=== PATIENT | male | born 1935 | race African-American/Black ===

== ENCOUNTER 2019-04-28 05:24 | Inpatient (IN) | payer OTHER ==
[2019-04-28] VITALS (33 sets, daily range): BP systolic 73–139; BP diastolic 54–105; PULSE 71–100; RESP 18–22; Ht 195.6 cm; Wt 90.0 kg
[~2019-04-28] VITALS: Ht 195.6 cm; Wt 90.0 kg
[2019-04-28] MEDS: PROPOFOL 100 ML IV STA ×2 (05:32→05:55)
[2019-04-28] MEDS ORDERED: SOD CHLORIDE 0.9% 1,000 ML IV STA (05:32)
[2019-04-28] MEDS ORDERED: SODIUM CHLORIDE 0.9% 1L BAG IV* STA (05:35)
[2019-04-28] MEDS ORDERED: CEFEPIME 2GM/50 ML (PMX) 50 ML IVPB STA (05:35)
[2019-04-28] MEDS ORDERED: VANCOMYCIN 1 GM (PMX) 250 ML IVPB ONE (06:00)
[2019-04-28] MEDS ORDERED: ETOMIDATE 20 MG INJ IV ONE (06:00)
[2019-04-28] MEDS ORDERED: ROCURONIUM 50 MG INJ IV ONE (06:00)
[2019-04-28] MEDS ORDERED: FENTAnyl (DRIP) 1000 mcg/100mL 100 ML IV ONE (06:00)
[2019-04-28] MEDS ORDERED: FENTAnyl 50 MCG/ML VIAL IV ONE (06:00)
--- NOTE | 2019-04-28 06:22 | ERD ---
ER Documentation Chief Complaint Chief Complaint sabrina ra from assisted for respiratory depression / arrest HPI This is a 83-year-old male who presents for evaluation of respiratory distress. Patient was noted to be hypoxic at his care home facility, today EMS was called in early childhood education coordinator, noted that the patient had very shallow breath sounds. On arrival the patient was being bagged, history was limited secondary to acuity of patient's condition. ROS All systems reviewed and are negative except as per history of present illness. Allergies Allergies: Coded Allergies: No Known Allergy (Unverified , 04/28/19) PMhx/Soc Hx Cardiac Disorders: Yes (HTN) Hx Psychiatric Problems: No Hx Miscellaneous Medical Probl: Yes (DEMENTIA) Hx Alcohol Use: No Hx Substance Use: No Hx Tobacco Use: No Smoking Status: Never smoker Physical Exam Vitals Vital Signs Date Temp Pulse Resp B/P (MAP) Pulse Ox O2 O2 Flow FiO2 Time Delivery Rate 04/28/19 115 18 100 30 05:39 04/28/19 98.0 114 4 113/84 100 05:25 (94) 04/28/19 99.3 125 18 113/84 100 Ambu Bag 05:24 (94) Physical Exam Const: Ill-appearing, minimally responsive, patient does have a gag reflex Head: Atraumatic Eyes: Normal Conjunctiva ENT: Normal External Ears, Nose and Mouth. Neck: Full range of motion. No meningismus. Resp: Breath sounds are coarse bilaterally Cardio: Sinus tachycardia with regular rhythm rhythm, no murmurs Abd: Soft, non tender, non distended. Normal bowel sounds Skin: No petechiae or rashes Back: No midline or flank tenderness Ext: No cyanosis, or edema Neur: Obtunded, unable to assess Psych: Unable to assess Results 24 hrs Laboratory Tests Test 04/28/19 05:30 04/28/19 05:35 04/28/19 05:38 Bedside Glucose 457 mg/dL White Blood Count Pending Red Blood Count Pending Hemoglobin Pending Hematocrit Pending Mean Corpuscular Volume Pending Mean Corpuscular Hemoglobin Pending Mean Corpuscular Hemoglobin Concent Pending Red Cell Distribution Width Pending Platelet Count Pending Mean Platelet Volume Pending POC Venous Lactate 2.6 mmol/L Current Medications Medications Dose Sig/Michelle Start Time Status Last (Trade) Ordered Route PRN Stop Time Admin Dose Reason Admin Sodium 1,000 ml @ Q1H STAT 04/28/19 Chloride 1,000 mls/hr IV 05:32 04/28/19 06:31 Etomidate 18 mg ONCE ONCE 04/28/19 (Amidate) IV 06:00 04/28/19 06:01 Rocuronium 60 mg ONCE ONCE 04/28/19 [place] IV 06:00 04/28/19 (Zemuron) 06:01 Fentanyl 25 mcg ONCE ONCE 04/28/19 (Sublimaze) IV 06:00 04/28/19 06:01 Propofol 100 ml @ ONCE STAT 04/28/19 2.7 mls/hr IV 05:32 04/30/19 05:09 Fentanyl 100 ml @ 5 CONTINUOUS 04/28/19 mls/hr DRIP ONCE 06:00 04/29/19 IV 01:59 Sodium 2,000 ml BOLUS OVER 2 04/28/19 DC Chloride HOURS STAT 05:35 04/28/19 (NS) IV* 05:37 Cefepime HCl 50 ml @ ONCE STAT 04/28/19 100 mls/hr IVPB 05:35 04/28/19 06:04 Vancomycin 250 ml @ ONCE ONCE 04/28/19 HCl 125 mls/hr IVPB 06:00 04/28/19 07:59 Procedures/MDM 83-year-old male presents for evaluation of respiratory distress. On arrival patient was obtunded, his pupils were noted to be somewhat pinpoint by me, I tried Narcan was given with no response, subsequently he was intubated without complication. My primary suspicion that the most likely aspirated, his EKG showed no evidence of acute ischemia, patient will be started on vancomycin and cefepime. EKG: Rate/Rhythm: Sinus tachycardia QRS, ST, T-waves: No changes consistent w/ acute ischemia Impression: No evidence of ischemia or arrhythmia Endotracheal Intubation by me: Pre assessment performed. Pre-oxygenation performed with 100% oxygen RSI: Performed w/o complication or hypoxic events. Medications as ordered. Blade: [Mac 4] ET Tube: 7.5 cm Depth: 23 cm at the lip Intubation confirmed by colorimetric CO2, equal breath sounds, quiet over the stomach. Chest X-ray pending Central Line Placement by me: Patient consented, sterilely draped, full prep, gown, glove, mask, time out performed. Anesthesia: 1% lidocaine locally Location: Right IJ Device: Multiple lumen Technique: Seldinger technique. Secured with suture. Results: Venous return from all ports with easy saline flush. No complications. Guide wire retrieved and disposed of. [Chest X-ray pending Critical Care Time: 35] minutes Treatments/Evaluations: Close monitoring and treatment of unstable vital signs, cardiorespiratory, and neurologic status, while maintaining tight balance of fluid, respiratory, and cardiac interventions. This time includes discussing the case with the patient and the patient's family. This time does not include all procedures stated elsewhere in this record. This time also includes reviewing old records, labs and radiological studies. This time includes examining and re-examining the patient. Additionally, this time also includes arranging care with admitting and consulting physicians. Departure Diagnosis: Primary Impression: Shortness of breath Additional Impression: Aspiration into lower respiratory tract Encounter type: initial encounter Qualified Codes: T17.800A - Unspecified foreign body in other parts of respiratory tract causing asphyxiation, ini tial encounter Condition: Stable TERA OLVERA MD Apr 28, 2019 05:56
[2019-04-28] MEDS ORDERED: NALOXONE 2 MG SYG ONE (07:00)
--- NOTE | 2019-04-28 10:10 | HP ---
Date/Time of Note Date/Time of Note DATE: 04/28/19 TIME: 10:09 Assessment/Plan VTE Prophylaxis SCD applied (from Nsg): Yes Pharmacological prophylaxis: heparin Lines/Catheters IV Catheter Type (from Nrsg): Saline Lock Central line still needed: Yes (Critical care) Urinary Cath still in place: Yes Reason Cath still needed: other (indicate) (Critical illness, fluid monitoring) Assessment/Plan Assessment/Plan 1. 83yo man admitted from [facility] for agonal breathing, decreased level of consciousness, requiring intubation and mechanical ventilation 2. EKG showed sinus tachycardia (121bpm) with left axis deviation and T-wave inversion in leads I and aVL. But he is oxygenating well with a relatively normal ABG. Possible atrial fibrillation on exam this morning 3. Diabetes, with hyperglycemia on sliding scale insulin 4. Mild thrombocytopenia, no bleeding 5. Hypernatremia, with sodium 160, presumed dehydration with tachycardia 6. Elevated lactate, possibly related to aspiration. No infiltrate on CXR, but likely dehydrated 7. CKD: [id number], with creatinine 1.81 8. Concern for possible stroke, with previous right-sided weakness and inability to walk. Not moving right-sided extremities 9. Dementia, non-verbal. * Admit to ICU * Will ask Dr. Efrain Webster to evaluate for CCM * Continue current vent settings, with AC and TV 500cc, PEEP 5 * Continue antibiotics: cefepime 2g IV q12h (renally dose-adjusted) and vancomycin per pharmacy * Hydration; monitor electrolytes today * Insulin drip, per protocol * A1c, TSH pending * NG tube to assess any upper GI bleeding, potential for initiating tube feedings * Serial troponins * Famotidine for GI protection * Heparin 5000u SQ q12h for DVT prevention * Disposition: will require skilled placement * Code status: Full-code Leanne Stone MD PhD [facility] [phone] Result Diagram: 04/28/1953404/28/19534 Results 24hrs Laboratory Tests Test 04/28/19 05:30 04/28/19 05:32 04/28/19 05:35 04/28/19 05:38 Bedside Glucose 457 *H Blood Gas Specimen Blood arterial Source Arterial Blood 04/28/2019 6:05:04 Date Drawn AM Arterial Blood pH 7.386 (Temp corrected) Arterial Blood 39.2 pCO2 (Temp correct) Arterial Blood pO2 198.3 H (Temp corrected) Arterial Blood 23.0 HCO3 Arterial Blood -1.7 Base Excess Arterial Blood 98.9 Oxygen Saturation Ashok Test ACCEPTAB Arterial Blood Gas Left Radial Puncture Site Arterial 0.3 Blood Carboxyhemog lobin Arterial Blood 0.3 Methemoglobin Blood Gas A-a O2 475.5 H Differential Oxyhemoglobin 98.3 Percent Blood Gas 37.0 Temperature Blood Gas 18.0 Respiration Rate Blood Gas Actual 18 Respiration Rate Blood Gas Modality VENT - AC FiO2 100.0 Blood Gas Tidal 500.0 Volume Blood Gas Low PEEP 5.0 Setting Blood Gas Notified Jarrett MYRICK RCP Whom Blood Gas Notified 04/28/2019 6:11:31 Time AM White Blood Count 6.6 Red Blood Count 5.52 Hemoglobin 16.2 Hematocrit 50.9 Mean Corpuscular 92.2 Volume Mean Corpuscular 29.3 Hemoglobin Mean Corpuscular 31.8 L Hemoglobin Concent Red Cell 12.0 Distribution Width Platelet Count 122 L Mean Platelet 12.1 H Volume Immature 0.200 Granulocytes % Neutrophils % Segmented 61 Neutrophils % (Manual) Band Neutrophils % 5 H (Manual) Lymphocytes % Lymphocytes % 13 L (Manual) Monocytes % Monocytes % 21 H (Manual) Eosinophils % Basophils % Nucleated Red 0.0 Blood Cells % Immature 0.010 Granulocytes # Neutrophils # Neutrophils # 4.0 (Manual) Band Neutrophils # 0.3 Lymphocytes 0.8 (Manual) Lymphocytes # Monocytes # Monocytes # 1.3 H (Manual) Eosinophils # Basophils # Nucleated Red Blood Cells # Platelet Estimate DECREASED Giant Platelets 5 H Polychromasia 2+ Anisocytosis 1+ Microcytosis 1+ Prothrombin Time 17.4 H Prothrombin Time 1.4 Ratio INR International 1.41 Normalized Ratio Activated 26.[address] Time Sodium Level 160 H Potassium Level 4.3 Chloride Level 113 H Carbon Dioxide 28 Level Anion Gap 19 H Blood Urea 91 H Nitrogen Creatinine 1.81 H Est Glomerular Filtrat Rate mL/min Glucose Level 492 *H Calcium Level 10.0 Total Bilirubin 0.5 Direct Bilirubin 0.00 Indirect Bilirubin 0.5 Aspartate Amino 24 Transf (AST/SGOT) Alanine 8 L Aminotransferase ( ALT/SGPT) Alkaline 100 Phosphatase Troponin I 0.051 Total Protein 7.7 Albumin 3.8 Globulin 3.90 H Albumin/Globulin 0.97 Ratio POC Venous Lactate 2.6 *H Test 04/28/19 07:54 04/28/19 09:32 Lactic Acid Level 2.6 *H Phosphorus Level 3.9 Magnesium Level 3.1 H Bedside Glucose 415 *H HPI/ROS Admit Date/Time Admit Date/Time Apr 28, 2019 at 05:40 Hx of Present Illness cc: altered mental status, respiratory failure HPI: Mr. Fraser is an 83-year-old patient of Dr. Beba Luciano who was found last night in his room at [facility] to be obtunded with shallow respirations. Paramedics were called, and he was transported to the [facility] ER, where he was intubated. I spoke this morning with two of his caregivers, Suze and Leland (the charge nurse). He was first admitted to [facility] ten days ago, on 04/18/19, from [facility] where he was hospitalized last month for weakness. CT brain there was negative for CVA. He has right-sided weakness and is non-ambulatory. Full-code at the facility. No next of kin listed in their records. Non-verbal, with some behavioral disturbances that responded to Seroquel and Haldol. He was unable to feed himself. Medical history: 1. Liver disease 2. CHF 3. Cancer/leukemia/lymphoma 4. dementia 5. renal disease 6. Diabetes Medications: 1. escitalopram 2. Tozar 3. Crestor 4. Metformin 5. Aspirin 81mg 6. Novolog 7. Pepcid 8. Atrovent 9. amlodipine PMH/Family/Social Past Medical History Medications Current Medications Propofol 100 ml @ 2.7 mls/hr ONCE STAT IV ; Start 04/28/19 at 05:32; Stop 04/30/19 at 05:09 Fentanyl 100 ml @ 5 mls/hr CONTINUOUS DRIP ONCE IV Last administered on 04/28/19at 06:04; Admin Dose 5 MLS/HR; Start 04/28/19 at 06:00; Stop 04/29/19 at 01:59 Coded Allergies: No Known Allergy (Unverified , 04/28/19) Social History Smoking Status: Never smoker Exam/Review of Systems Vital Signs Vitals Vital Signs Date Temp Pulse Resp B/P (MAP) Pulse Ox O2 O2 Flow FiO2 Time Delivery Rate 04/28/19 90 08:17 04/28/19 18 121/91 98 Room Air 07:54 (101) 04/28/19 98.1 07:08 04/28/19 60 06:16 Exam Exam Gen: Intubated, on fentanyl. Propofol suspended. HEENT: Symmetric very small pupils. No scleral icterus or conjunctivitis. No JVD. Head turned to right, with mild resistance to rotation. No adenopathy. CVS: Tachycardic, irregular, no murmur heard. Left foot mildly cool, but with symmetric dorsalis pedis pulses. Chest: Clear bilaterally Abd: Non-distended, soft, bowel sounds positive, no HSM palpated MSk: No edema or arthritis Neuro: No posturing, 1+ patellar symmetric DTRs, toes downgoing bilaterally. Moving left arm infrequently. No other movement. Skin: No decubiti or rash WILFREDO STONE M.D. Apr 28, 2019 10:10
[2019-04-28] MEDS ORDERED: ONDANSETRON 4 MG INJ IV PRN (11:00)
[2019-04-28] MEDS ORDERED: NACL 0.9% 3 ML SYG IV SCH (11:00)
[2019-04-28] MEDS ORDERED: DEXTROSE 50% 50 ML SYRINGE IV PRN ×4 (11:30)
[2019-04-28] MEDS ORDERED: GLUCAGON 1 MG INJ IM PRN (11:30)
[2019-04-28] MEDS ORDERED: ACCU-CHEK XX SCH (11:30)
[2019-04-28] MEDS ORDERED: GLUCOSE GEL 15 GRAM TUBE PO PRN ×2 (11:30)
[2019-04-28] MEDS ORDERED: GLUCOSE GEL 15 GRAM TUBE BUCCAL PRN (11:30)
[2019-04-28] MEDS ORDERED: VANCOMYCIN IV PER PHARMACY XX SCH (11:30)
[2019-04-28] MEDS ORDERED: INSULIN HUMAN REGULAR 100 UNIT in SOD CHLORIDE 0.9% 99 ML IV SCH (11:30)
[2019-04-28] MEDS: CEFEPIME 2GM/50 ML (PMX) 50 ML IVPB SCH (13:19)
[2019-04-28] MEDS: 1/2 NS + KCL 20 MEQ 1,000 ML IV SCH ×2 (13:21→20:51)
[2019-04-28] MEDS ORDERED: VANCOMYCIN 750 MG (PMX) 250 ML IVPB SCH (13:30)
[2019-04-28] MEDS: FAMOTIDINE 20 MG INJ IV SCH (13:45)
[2019-04-28] MEDS: HEPARIN 5,000 UNIT/1 ML VIAL SC SCH ×2 (13:56→21:04)
[2019-04-28] MEDS: ASPIRIN 81 MG TAB NGT SCH (14:03)
--- NOTE | 2019-04-28 15:17 | CONS ---
Assessment/Plan Assessment/Plan Assessment/Plan (Daily) IMP: 1. Acute Respiratory Failure--2/2 central airway obstruction due to choking on food. 2. Encephalopathy--multifactorial. Toxic-metabolic on top of baseline dementia. 3. AG Metabolic acidosis--query mild DKA +/- lactic acidosis 4. KYAW--on CKD, likely pre-renal 5. Hypernatremia 6. Dementia RECS: 1. Vent support; will adjust vent and repeat ABG 2. Limit sedative if possible 3. Obtain serum ketones and lactate 4. Fluid resuscitation with LR 5. May initiate TF and Free H20 soon; nutrition consult 6. Obtain TnI 7. Am labs/CXR/ABG 8. VTE and GI prophylaxis 9. Send UA and cultures 10. De-escalate abx HPI: Mr. Fraser is an 83-year-old patient of Dr. Beba Luciano who was found last night in his room at [facility] to be obtunded with shallow respirations. Paramedics were called, and he was transported to the [facility] ER, where he was intubated. I spoke this morning with two of his caregivers, Suze and Leland (the charge nurse). He was first admitted to [facility] ten days ago, on 04/18/19, from [facility] where he was hospitalized last month for weakness. CT brain there was negative for CVA. He has right-sided weakness and is non-ambulatory. Full-code at the facility. No next of kin listed in their records. Non-verbal, with some behavioral disturbances that responded to Seroquel and Haldol. He was unable to feed himself. Medical history: 1. Liver disease 2. CHF 3. Cancer/leukemia/lymphoma 4. dementia 5. renal disease 6. Diabetes 1. 83yo man admitted from [facility] for agonal breathing, decreased level of consciousness, requiring intubation and mechanical ventilation 2. EKG showed sinus tachycardia (121bpm) with left axis deviation and T-wave inversion in leads I and aVL. But he is oxygenating well with a relatively normal ABG. Possible atrial fibrillation on exam this morning 3. Diabetes, with hyperglycemia on sliding scale insulin 4. Mild thrombocytopenia, no bleeding 5. Hypernatremia, with sodium 160, presumed dehydration with tachycardia 6. Elevated lactate, possibly related to aspiration. No infiltrate on CXR, but likely dehydrated 7. CKD: [id number], with creatinine 1.81 8. Concern for possible stroke, with previous right-sided weakness and inability to walk. Not moving right-sided extremities 9. Dementia, non-verbal. * Admit to ICU * Will ask Dr. Efrain Diaz to evaluate for CCM * Continue current vent settings, with AC and TV 500cc, PEEP 5 * Continue antibiotics: cefepime 2g IV q12h (renally dose-adjusted) and vancomycin per pharmacy * Hydration; monitor electrolytes today * Insulin drip, per protocol * A1c, TSH pending * NG tube to assess any upper GI bleeding, potential for initiating tube feedings * Serial troponins * Famotidine for GI protection * Heparin 5000u SQ q12h for DVT prevention * Disposition: will require skilled placement * Code status: Full-code Consultation Date/Type/Reason Admit Date/Time Apr 28, 2019 at 05:40 Date of Consultation: Apr 28, 2019 Type of Consult Pulm/CCM Date/Time of Note DATE: 04/28/19 TIME: 15:04 Hx of Present Illness Briefly, this is an 83-year-old man with history of DM, dementia,? leukemia, CHF, liver disease, right-sided weakness, who was admitted to [facility] after being found in SNF in respiratory distress, requiring intubation. He is currently on mechanical ventilation and is sedated. Subjective hx not possible: pt non-verbal Past Medical History as per HPI Medications Current Medications Propofol 100 ml @ 2.7 mls/hr ONCE STAT IV ; Start 04/28/19 at 05:32; Stop 04/30/19 at 05:09 Fentanyl 100 ml @ 5 mls/hr CONTINUOUS DRIP ONCE IV Last administered on 04/28/19at 06:04; Admin Dose 5 MLS/HR; Start 04/28/19 at 06:00; Stop 04/29/19 at 01:59 Potassium Chloride/Sodium Chloride 1,000 ml @ 100 mls/hr Q10H IV Last administered on 04/28/19at 13:21; Admin Dose 100 MLS/HR; Start 04/28/19 at 10:51 IV Flush (NS 3 ml) 3 ml PER PROTOCOL IV ; Start 04/28/19 at 11:00 Ondansetron HCl (Zofran Inj) 4 mg Q6H PRN IV NAUSEA/VOMITING; Start 04/28/19 at 11:00 Aspirin (Aspirin) 81 mg DAILY NGT Last administered on 04/28/19at 14:03; Admin Dose 81 MG; Start 04/28/19 at 11:00 Famotidine (Pepcid Iv) 20 mg Q24H IV Last administered on 04/28/19at 13:45; Admin Dose 20 MG; Start 04/28/19 at 11:40 Heparin Sodium (Porcine) (Heparin (5000 Units/1ml)) 5,000 unit Q12 SC Last administered on 04/28/19at 13:56; Admin Dose 5,000 UNIT; Start 04/28/19 at 11:00 Insulin Human Regular 100 unit/ Sodium Chloride 100 ml @ 9 mls/hr PER PROTOCOL IV Last administered on 04/28/19at 13:29; Admin Dose 6 MLS/HR; Start 04/28/19 at 11:30 Miscellaneous Information (* Miscellaneous Pharmacy Order) Treatment of Hypoglycemia: 1.BG 51... Per protocol XX ; Start 04/28/19 at 11:30 Dextrose (D50w Syringe) 25 ml Q15M PRN IV .DECREASED GLUCOSE; Start 04/28/19 at 11:30 Dextrose (D50w Syringe) 50 ml Q15M PRN IV .DECREASED GLUCOSE; Start 04/28/19 at 11:30 Cefepime HCl 50 ml @ 100 mls/hr Q24H IVPB Last administered on 04/28/19at 13:19; Admin Dose 100 MLS/HR; Start 04/29/19 at 06:00 Vancomycin HCl (Vanco Iv Per Pharmacy) VANCOMYCIN PER PHARMACY PER PROTOCOL XX ; Start 04/28/19 at 11:30 Vancomycin/Sodium Chloride 250 ml @ 125 mls/hr Q24H IVPB Last administered on 04/28/19at 13:45; Admin Dose 125 MLS/HR; Start 04/28/19 at 13:30 Allergies: Coded Allergies: No Known Allergy (Unverified , 04/28/19) Past Surgical History unknown Family History Significant Family History: no pertinent family hx Social History Alcohol Use: none Smoking Status: Never smoker Drug Use: none Exam/Review of Systems Exam Vitals Vital Signs Date Temp Pulse Resp B/P (MAP) Pulse Ox O2 O2 Flow FiO2 Time Delivery Rate 04/28/19 94 12:00 04/28/19 18 99 50 11:20 04/28/19 121/91 Room Air 07:54 (101) 04/28/19 98.1 07:08 Constitutional: non-verbal Head: normocephalic, atraumatic Eyes: nl conjunctiva, EOMI ENMT: intubated Neck: supple, non-tender, jvd Respiratory: clear to auscultation Cardiovascular: regular rate and rhythm, systolic murmur Gastrointestinal: soft, nl liver, spleen Musculoskeletal: nl extremities to inspection Extremities: normal pulses Neurological: [employer]NAL [employer]ION ENG[employer]ER II-XII intact, focal weakness Results Result Diagram: 04/28/19 0535 04/28/19 0535 Results 24hrs Laboratory Tests Test 04/28/19 05:30 04/28/19 05:32 04/28/19 05:35 04/28/19 05:38 Bedside Glucose 457 *H Blood Gas Specimen Blood arterial Source Arterial Blood 04/28/2019 6:05:04 Date Drawn AM Arterial Blood pH 7.386 (Temp corrected) Arterial Blood 39.2 pCO2 (Temp correct) Arterial Blood pO2 198.3 H (Temp corrected) Arterial Blood 23.0 HCO3 Arterial Blood -1.7 Base Excess Arterial Blood 98.9 Oxygen Saturation Ashok Test ACCEPTAB Arterial Blood Gas Left Radial Puncture Site Arterial 0.3 Blood Carboxyhemog lobin Arterial Blood 0.3 Methemoglobin Blood Gas A-a O2 475.5 H Differential Oxyhemoglobin 98.3 Percent Blood Gas 37.0 Temperature Blood Gas 18.0 Respiration Rate Blood Gas Actual 18 Respiration Rate Blood Gas Modality VENT - AC FiO2 100.0 Blood Gas Tidal 500.0 Volume Blood Gas Low PEEP 5.0 Setting Blood Gas Notified Jarrett MYRICK RCP Whom Blood Gas Notified 04/28/2019 6:11:31 Time AM White Blood Count 6.6 Red Blood Count 5.52 Hemoglobin 16.2 Hematocrit 50.9 Mean Corpuscular 92.2 Volume Mean Corpuscular 29.3 Hemoglobin Mean Corpuscular 31.8 L Hemoglobin Concent Red Cell 12.0 Distribution Width Platelet Count 122 L Mean Platelet 12.1 H Volume Immature 0.200 Granulocytes % Neutrophils % Segmented 61 Neutrophils % (Manual) Band Neutrophils % 5 H (Manual) Lymphocytes % Lymphocytes % 13 L (Manual) Monocytes % Monocytes % 21 H (Manual) Eosinophils % Basophils % Nucleated Red 0.0 Blood Cells % Immature 0.010 Granulocytes # Neutrophils # Neutrophils # 4.0 (Manual) Band Neutrophils # 0.3 Lymphocytes 0.8 (Manual) Lymphocytes # Monocytes # Monocytes # 1.3 H (Manual) Eosinophils # Basophils # Nucleated Red Blood Cells # Platelet Estimate DECREASED Giant Platelets 5 H Polychromasia 2+ Anisocytosis 1+ Microcytosis 1+ Prothrombin Time 17.4 H Prothrombin Time 1.4 Ratio INR International 1.41 Normalized Ratio Activated 26.[address] Time Sodium Level 160 H Potassium Level 4.3 Chloride Level 113 H Carbon Dioxide 28 Level Anion Gap 19 H Blood Urea 91 H Nitrogen Creatinine 1.81 H Est Glomerular Filtrat Rate mL/min Glucose Level 492 *H Calcium Level 10.0 Total Bilirubin 0.5 Direct Bilirubin 0.00 Indirect Bilirubin 0.5 Aspartate Amino 24 Transf (AST/SGOT) Alanine 8 L Aminotransferase ( ALT/SGPT) Alkaline 100 Phosphatase Troponin I 0.051 Total Protein 7.7 Albumin 3.8 Globulin 3.90 H Albumin/Globulin 0.97 Ratio POC Venous Lactate 2.6 *H Test 04/28/19 07:54 04/28/19 09:32 04/28/19 10:30 04/28/19 13:24 Lactic Acid Level 2.6 *H 2.6 *H Phosphorus Level 3.9 Magnesium Level 3.1 H Bedside Glucose 415 *H 407 *H Test 04/28/19 14:32 Bedside Glucose 377 H Medications Medication Current Medications Propofol 100 ml @ 2.7 mls/hr ONCE STAT IV ; Start 04/28/19 at 05:32; Stop 04/30/19 at 05:09 Fentanyl 100 ml @ 5 mls/hr CONTINUOUS DRIP ONCE IV Last administered on 04/28/19at 06:04; Admin Dose 5 MLS/HR; Start 04/28/19 at 06:00; Stop 04/29/19 at 01:59 Potassium Chloride/Sodium Chloride 1,000 ml @ 100 mls/hr Q10H IV Last administered on 04/28/19at 13:21; Admin Dose 100 MLS/HR; Start 04/28/19 at 10:51 IV Flush (NS 3 ml) 3 ml PER PROTOCOL IV ; Start 04/28/19 at 11:00 Ondansetron HCl (Zofran Inj) 4 mg Q6H PRN IV NAUSEA/VOMITING; Start 04/28/19 at 11:00 Aspirin (Aspirin) 81 mg DAILY NGT Last administered on 04/28/19 14:03; Admin Dose 81 MG; Start 04/28/19 at 11:00 Famotidine (Pepcid Iv) 20 mg Q24H IV Last administered on 04/28/19 13:45; Admin Dose 20 MG; Start 04/28/19 at 11:40 Heparin Sodium (Porcine) (Heparin (5000 Units/1ml)) 5,000 unit Q12 SC Last administered on 04/28/19 13:56; Admin Dose 5,000 UNIT; Start 04/28/19 at 11:00 Insulin Human Regular 100 unit/ Sodium Chloride 100 ml @ 9 mls/hr PER PROTOCOL IV Last administered on 04/28/19 13:29; Admin Dose 6 MLS/HR; Start 04/28/19 at 11:30 Miscellaneous Information (* Miscellaneous Pharmacy Order) Treatment of Hypoglycemia: 1.BG 51... Per protocol XX ; Start 04/28/19 at 11:30 Dextrose (D50w Syringe) 25 ml Q15M PRN IV .DECREASED GLUCOSE; Start 04/28/19 at 11:30 Dextrose (D50w Syringe) 50 ml Q15M PRN IV .DECREASED GLUCOSE; Start 04/28/19 at 11:30 Cefepime HCl 50 ml @ 100 mls/hr Q24H IVPB Last administered on 04/28/19 13:19; Admin Dose 100 MLS/HR; Start 04/29/19 at 06:00 Vancomycin HCl (Vanco Iv Per Pharmacy) VANCOMYCIN PER PHARMACY PER PROTOCOL XX ; Start 04/28/19 at 11:30 Vancomycin/Sodium Chloride 250 ml @ 125 mls/hr Q24H IVPB Last administered on 04/28/19 13:45; Admin Dose 125 MLS/HR; Start 04/28/19 at 13:30 EFRAIN DIAZ MD Apr 28, 2019 15:17
[2019-04-28] MEDS ORDERED: LACTATED RINGER'S 1,000 ML IV ONE (15:30)
[2019-04-28] MEDS: FENTAnyl (DRIP) 1000 mcg/100mL 100 ML IV SCH (18:00)
[2019-04-29] VITALS (44 sets, daily range): BP systolic 96–140; BP diastolic 63–99; PULSE 78–101; RESP 16–20
[2019-04-29] MEDS: 1/2 NS + KCL 20 MEQ 1,000 ML IV SCH ×3 (00:14→19:59)
[2019-04-29] MEDS: FENTAnyl (DRIP) 1000 mcg/100mL 100 ML IV SCH (06:06)
[2019-04-29] MEDS ORDERED: GLUCOSE GEL 15 GRAM TUBE BUCCAL PRN (08:30)
[2019-04-29] MEDS ORDERED: DEXTROSE 50% 50 ML SYRINGE IV PRN ×2 (08:30)
[2019-04-29] MEDS ORDERED: GLUCOSE GEL 15 GRAM TUBE PO PRN ×2 (08:30)
[2019-04-29] MEDS ORDERED: GLUCAGON 1 MG INJ IM PRN (08:30)
[2019-04-29] MEDS: INSULIN ASPART [NOVOLOG] 3 ML PEN SC SCH ×4 (09:00→22:00)
[2019-04-29] MEDS: ASPIRIN 81 MG TAB NGT SCH (09:00)
--- NOTE | 2019-04-29 09:40 | CONS ---
Consult Date/Type/Reason Admit Date/Time Apr 28, 2019 at 05:40 Initial Consult Date 04/28/19 Type of Consult Pulmonary Date/Time of Note DATE: 04/29/19 TIME: 09:38 Subjective Patient appears comfortable no respiratory distress orally intubated currently on insulin and fentanyl FiO2 40%. Objective Vital Signs Date Temp Pulse Resp B/P (MAP) Pulse Ox O2 O2 Flow FiO2 Time Delivery Rate 04/29/19 87 18 102/75 99 Mechanical 08:30 (84) Ventilator 04/29/19 50 08:00 04/29/19 98.0 08:00 Intake and Output 04/28/19 04/28/19 04/29/19 1515:00 23:00 07:00 IntakeIntake Total 1423 ml 2188 ml 850.0 ml OutputOutput Total 30 ml 250 ml BalanceBalance 1423 ml 2158 ml 600.0 ml Exam GENERAL: VITAL SIGNS: per chart NECK: Supple. No JVD or lymphadenopathy. CARDIAC EXAM: S1, S2. No added sounds or murmurs. CHEST: clear bilaterally, No added sounds, rales or wheezes ABDOMEN: Soft, nontender. No guarding or rebound. EXTREMITIES: No cyanosis, clubbing or edema. NEUROLOGIC: Generalized weakness. Elderly appearing gentleman orally intubated on mechanical ventilation Vent Setting Ventilator Support Mode: AC Fraction of Inspired Oxygen pe: 50 Positive End Expiratory Pressu: 5.0 Results/Medications Result Diagram: 04/29/19 0500 04/29/19 0500 Results 24 hrs Laboratory Tests Test 04/28/19 10:30 04/28/19 13:24 04/28/19 14:32 04/28/19 15:36 Lactic Acid Level 2.6 *H Bedside Glucose 407 *H 377 H 325 H Test 04/28/19 15:46 04/28/19 16:39 04/28/19 17:44 04/28/19 18:48 Lactic Acid Level 3.9 *H Bedside Glucose 278 H 253 H 231 H Test 04/28/19 19:56 04/28/19 21:06 04/28/19 22:05 04/28/19 23:19 Bedside Glucose 189 167 136 131 Test 04/29/19 00:02 04/29/19 00:53 04/29/19 01:56 04/29/19 02:56 Bedside Glucose 113 111 109 107 Test 04/29/19 04:01 04/29/19 04:57 04/29/19 05:00 04/29/19 05:59 Bedside Glucose 116 127 125 White Blood Count 8.6 # Red Blood Count 4.84 Hemoglobin 14.2 Hematocrit 44.9 Mean Corpuscular 92.8 Volume Mean Corpuscular 29.3 Hemoglobin Mean Corpuscular 31.6 L Hemoglobin Concent Red Cell 12.4 Distribution Width Platelet Count 96 #L Mean Platelet 12.4 H Volume Immature 0.300 Granulocytes % Neutrophils % Segmented 58 Neutrophils % (Manual) Band Neutrophils % 22 H (Manual) Lymphocytes % Lymphocytes % 6 L (Manual) Monocytes % Monocytes % 8 (Manual) Eosinophils % Basophils % Basophils % 1 (Manual) Metamyelocytes % 3 H (manual) Myelocytes % 1 H (Manual) Promyelocytes % 1 H (Manual) Nucleated Red 0.0 Blood Cells % Immature 0.030 Granulocytes # Neutrophils # Neutrophils # 5.1 (Manual) Band Neutrophils # 1.8 H Lymphocytes 0.5 L (Manual) Lymphocytes # Monocytes # Monocytes # 0.6 (Manual) Eosinophils # Basophils # Basophils # 0.0 (Manual) Metamyelocytes # 0.2 H Myelocytes # 0.0 Promyelocytes # 0.0 Nucleated Red Blood Cells # Platelet Estimate DECREASED Giant Platelets 4 H Poikilocytosis 1+ Blood Gas Specimen Blood arterial Source Arterial Blood 04/29/2019 4:20:58 Date Drawn AM Arterial Blood pH 7.375 (Temp corrected) Arterial Blood 39.6 pCO2 (Temp correct) Arterial Blood pO2 87.3 (Temp corrected) Arterial Blood 22.6 HCO3 Arterial Blood -2.3 Base Excess Arterial Blood 96.5 Oxygen Saturation Ashok Test ACCEPTAB Arterial Blood Gas Left Radial Puncture Site Arterial 0.3 Blood Carboxyhemog lobin Arterial Blood 0.4 Methemoglobin Blood Gas A-a O2 152.4 H Differential Oxyhemoglobin 95.8 Percent Blood Gas 37.0 Temperature Blood Gas 18.0 Respiration Rate Blood Gas Actual 18 Respiration Rate Blood Gas Modality VENT - AC FiO2 40.0 Blood Gas Tidal 500.0 Volume Blood Gas Low PEEP 5.0 Setting Blood Gas Notified MA Whom Blood Gas Notified 04/29/2019 4:41:36 Time AM Sodium Level 154 H Potassium Level 4.3 Chloride Level 121 H Carbon Dioxide 25 Level Anion Gap 8 # Blood Urea 84 H Nitrogen Creatinine 1.59 H Est Glomerular Filtrat Rate mL/min Glucose Level 138 # Hemoglobin A1c 12.9 H Lactic Acid Level 2.1 *H Calcium Level 9.1 Test 04/29/19 06:56 Bedside Glucose 130 Medications Current Medications Propofol 100 ml @ 2.7 mls/hr ONCE STAT IV ; Start 04/28/19 at 05:32; Stop 04/30/19 at 05:09 Potassium Chloride/Sodium Chloride 1,000 ml @ 100 mls/hr Q10H IV Last ad ministered on 04/29/19at 00:14; Admin Dose 100 MLS/HR; Start 04/28/19 at 10:51 IV Flush (NS 3 ml) 3 ml PER PROTOCOL IV ; Start 04/28/19 at 11:00 Ondansetron HCl (Zofran Inj) 4 mg Q6H PRN IV NAUSEA/VOMITING; Start 04/28/19 at 11:00 Aspirin (Aspirin) 81 mg DAILY NGT Last administered on 04/28/19at 14:03; Admin Dose 81 MG; Start 04/28/19 at 11:00 Famotidine (Pepcid Iv) 20 mg Q24H IV Last administered on 04/28/19at 13:45; Admin Dose 20 MG; Start 04/28/19 at 11:40 Heparin Sodium (Porcine) (Heparin (5000 Units/1ml)) 5,000 unit Q12 SC Last administered on 04/28/19at 21:04; Admin Dose 5,000 UNIT; Start 04/28/19 at 11:00 Cefepime HCl 50 ml @ 100 mls/hr Q24H IVPB Last administered on 04/28/19at 13:19; Admin Dose 100 MLS/HR; Start 04/29/19 at 06:00 Fentanyl 100 ml @ 2.5 mls/hr TITRATE IV Last administered on 04/29/19at 06:06; Admin Dose 5 MLS/HR; Start 04/28/19 at 18:00 Insulin Aspart (Novolog Insulin Pen) NOVOLOG *MODERATE* ALGORI... Q4 SC ; Start 04/29/19 at 09:00 Insulin Glargine (Lantus) 12 units DAILY@0800 SC ; Start 04/29/19 at 09:00 Miscellaneous Information 1 ea NOTE XX ; Start 04/29/19 at 08:30 Glucose (Glutose) 15 gm Q15M PRN PO DECREASED GLUCOSE; Start 04/29/19 at 08:30 Glucose (Glutose) 22.5 gm Q15M PRN PO DECREASED GLUCOSE; Start 04/29/19 at 08:30 Dextrose (D50w Syringe) 25 ml Q15M PRN IV DECREASED GLUCOSE; Start 04/29/19 at 08:30 Dextrose (D50w Syringe) 50 ml Q15M PRN IV DECREASED GLUCOSE; Start 04/29/19 at 08:30 Glucagon (Glucagen) 1 mg Q15M PRN IM DECREASED GLUCOSE; Start 04/29/19 at 08:30 Glucose (Glutose) 15 gm Q15M PRN BUCCAL DECREASED GLUCOSE; Start 04/29/19 at 08:30 Assessment/Plan Hospital Course (Demo Recall) IMP: 1. Acute Respiratory Failure--2/2 central airway obstruction due to choking on food. 2. Encephalopathy--multifactorial. Toxic-metabolic on top of baseline dementia. 3. AG Metabolic acidosis--query mild DKA +/- lactic acidosis 4. KYAW--on CKD, likely pre-renal 5. Hypernatremia 6. Dementia RECS: 1. Vent support; Anticipate weaning trial tomorrow 2. Limit sedative if possible 3. Obtain serum ketones and lactate 4. Fluid resuscitation with LR 5. May initiate TF and Free H20 soon; nutrition consult Critical care time 40 minutes Discussed goals of care with family and CODE STATUS. SHIRA SUE MD, [facility] Apr 29, 2019 09:40
[2019-04-29] MEDS: INSULIN GLARGINE [LANTus] (100 UNITS/ML) SYG SC SCH (09:53)
[2019-04-29] MEDS: HEPARIN 5,000 UNIT/1 ML VIAL SC SCH ×2 (09:54→21:58)
[2019-04-29] MEDS: FAMOTIDINE 20 MG INJ IV SCH (12:03)
--- NOTE | 2019-04-29 15:16 | PN ---
Date/Time of Note Date/Time of Note DATE: 04/29/19 TIME: 15:14 Subjective Remains sedated and intubated Objective Vitals Vital Signs Date Temp Pulse Resp B/P (MAP) Pulse Ox O2 O2 Flow FiO2 Time Delivery Rate 04/29/19 84 19 117/87 98 Mechanical 14:30 (97) Ventilator 04/29/19 97.7 12:00 04/29/19 40 11:40 Intake and Output 04/28/19 04/28/19 04/29/19 1515:00 23:00 07:00 IntakeIntake Total 1423 ml 2188 ml 850.0 ml OutputOutput Total 30 ml 280 ml BalanceBalance 1423 ml 2158 ml 570.0 ml Clear to auscultation bilaterally Rapid rate no murmurs or gallops Soft normoactive bowel sounds No edema Results Result Diagram: 04/29/19 0500 04/29/19 0500 Medications Medications Current Medications Propofol 100 ml @ 2.7 mls/hr ONCE STAT IV ; Start 04/28/19 at 05:32; Stop 04/30/19 at 05:09 Potassium Chloride/Sodium Chloride 1,000 ml @ 100 mls/hr Q10H IV Last administered on 04/29/19at 09:51; Admin Dose 100 MLS/HR; Start 04/28/19 at 10:51 IV Flush (NS 3 ml) 3 ml PER PROTOCOL IV ; Start 04/28/19 at 11:00 Ondansetron HCl (Zofran Inj) 4 mg Q6H PRN IV NAUSEA/VOMITING; Start 04/28/19 at 11:00 Aspirin (Aspirin) 81 mg DAILY NGT Last administered on 04/29/19at 09:00; Admin Dose 81 MG; Start 04/28/19 at 11:00 Famotidine (Pepcid Iv) 20 mg Q24H IV Last administered on 04/29/19at 12:03; Admin Dose 20 MG; Start 04/28/19 at 11:40 Heparin Sodium (Porcine) (Heparin (5000 Units/1ml)) 5,000 unit Q12 SC Last administered on 04/29/19at 09:54; Admin Dose 5,000 UNIT; Start 04/28/19 at 11:00 Cefepime HCl 50 ml @ 100 mls/hr Q24H IVPB Last administered on 04/28/19at 13:19; Admin Dose 100 MLS/HR; Start 04/29/19 at 06:00 Fentanyl 100 ml @ 2.5 mls/hr TITRATE IV Last administered on 04/29/19at 06:06; Admin Dose 5 MLS/HR; Start 04/28/19 at 18:00 Insulin Aspart (Novolog Insulin Pen) NOVOLOG *MODERATE* ALGORI... Q4 SC Last administered on 04/29/19at 13:47; Admin Dose 2 UNIT; Start 04/29/19 at 09:00 Insulin Glargine (Lantus) 12 units DAILY@0800 SC Last administered on 04/29/19at 09:53; Admin Dose 12 UNITS; Start 04/29/19 at 09:00 Miscellaneous Information 1 ea NOTE XX ; Start 04/29/19 at 08:30 Glucose (Glutose) 15 gm Q15M PRN PO DECREASED GLUCOSE; Start 04/29/19 at 08:30 Glucose (Glutose) 22.5 gm Q15M PRN PO DECREASED GLUCOSE; Start 04/29/19 at 08:30 Dextrose (D50w Syringe) 25 ml Q15M PRN IV DECREASED GLUCOSE; Start 04/29/19 at 08:30 Dextrose (D50w Syringe) 50 ml Q15M PRN IV DECREASED GLUCOSE; Start 04/29/19 at 08:30 Glucagon (Glucagen) 1 mg Q15M PRN IM DECREASED GLUCOSE; Start 04/29/19 at 08:30 Glucose (Glutose) 15 gm Q15M PRN BUCCAL DECREASED GLUCOSE; Start 04/29/19 at 08:30 VTE Prophylaxis Risk score (from Nsg)>0 risk: 11 SCD applied (from Nsg): Yes Lines/Catheters IV Catheter Type: Saline Lock Cooper in Place: Yes Cont'd cooper catheter reason: other (indicate) (ICU status) Assessment/Plan Assessment/Plan 83-year-old male with acute respiratory failure due to choking on food, status post intubation Recent CVA with left hemiparesis Alzheimer's dementia Acute kidney injury Dehydration Continue current therapy Wean off the ventilator Palliative care consultation Patient has no family members ALEXANDRIA WAGNER MD Apr 29, 2019 15:16
[2019-04-30] VITALS (36 sets, daily range): BP systolic 101–149; BP diastolic 68–90; PULSE 68–82; RESP 12–22
[2019-04-30] MEDS: INSULIN ASPART [NOVOLOG] 3 ML PEN SC SCH ×6 (01:18→21:01)
[2019-04-30] MEDS: FENTAnyl (DRIP) 1000 mcg/100mL 100 ML IV SCH (02:13)
[2019-04-30] MEDS: CEFEPIME 2GM/50 ML (PMX) 50 ML IVPB SCH (05:05)
[2019-04-30] MEDS: 1/2 NS + KCL 20 MEQ 1,000 ML IV SCH (05:18)
--- NOTE | 2019-04-30 08:06 | CONS ---
Assessment/Plan Assessment/Plan Assessment/Plan (Daily) Elderly 83-year-old gentleman with multiple medical problems Domingo failure on ventilator Questionable new CVA with left hemiparesis Dementia unknown severity Dehydration This patient is actively undergoing a trial of CPAP hopefully he can be extubated and verbalize transferred back to shelter facility. Code cannot be addressed at this time as there is no want to speak to unless we call a bioethics meeting which I think they will not address since patient is improving. Will follow closely. Consultation Date/Type/Reason Admit Date/Time Apr 28, 2019 at 05:40 Date/Time of Note DATE: 04/30/19 TIME: 08:02 Hx of Present Illness Chart reviewed patient examined spoke with intensive care unit nurse. Patient i s a 83-year-old gentleman who has multiple medical problems but essentially was transferred to [facility] after he apparently choked at an outside facility required intubation in the emergency room was admitted May 28, 2019. Initial thought was that patient had right-sided weakness CT of the brain was unremarkable for acute CVA. According to information that we have received patient was functional at an outside facility patient is a full code there are no family members on record patient is nonverbal once again intubated at this time where we have an incomplete database patient as far as patient's baseline cognitive mental abilities. Other comorbid medical problems include history of diabetes, fluid and electrolyte abnormalities, dementia uncharacterized, and of unknown severity, liver disease unknown etiology, congestive heart failure, malignancy unknown site unknown treatment, renal disease. Again patient is non- historian intubated full code no family members. As far as I know at this time patient is not conserved. At this time patient's fentanyl is being decreased and he will undergo a trial of CPAP today. Patient is intubated cannot obtain a review of systems. Past Medical History Medical History: cancer, congestive heart failure, renal disease Medications Current Medications Potassium Chloride/Sodium Chloride 1,000 ml @ 100 mls/hr Q10H IV Last administered on 04/30/19at 05:18; Admin Dose 100 MLS/HR; Start 04/28/19 at 10:51 IV Flush (NS 3 ml) 3 ml PER PROTOCOL IV ; Start 04/28/19 at 11:00 Ondansetron HCl (Zofran Inj) 4 mg Q6H PRN IV NAUSEA/VOMITING; Start 04/28/19 at 11:00 Aspirin (Aspirin) 81 mg DAILY NGT Last administered on 04/29/19at 09:00; Admin Dose 81 MG; Start 04/28/19 at 11:00 Famotidine (Pepcid Iv) 20 mg Q24H IV Last administered on 04/29/19at 12:03; Admin Dose 20 MG; Start 04/28/19 at 11:40 Heparin Sodium (Porcine) (Heparin (5000 Units/1ml)) 5,000 unit Q12 SC Last administered on 04/29/19at 21:58; Admin Dose 5,000 UNIT; Start 04/28/19 at 11:00 Cefepime HCl 50 ml @ 100 mls/hr Q24H IVPB Last administered on 04/30/19at 05:05; Admin Dose 100 MLS/HR; Start 04/29/19 at 06:00 Fentanyl 100 ml @ 2.5 mls/hr TITRATE IV Last administered on 04/30/19at 02:13; Admin Dose 5 MLS/HR; Start 04/28/19 at 18:00 Insulin Aspart (Novolog Insulin Pen) NOVOLOG *MODERATE* ALGORI... Q4 SC Last administered on 04/30/19at 05:02; Admin Dose 4 UNIT; Start 04/29/19 at 09:00 Insulin Glargine (Lantus) 12 units DAILY@0800 SC Last administered on 04/29/19at 09:53; Admin Dose 12 UNITS; Start 04/29/19 at 09:00 Miscellaneous Information 1 ea NOTE XX ; Start 04/29/19 at 08:30 Glucose (Glutose) 15 gm Q15M PRN PO DECREASED GLUCOSE; Start 04/29/19 at 08:30 Glucose (Glutose) 22.5 gm Q15M PRN PO DECREASED GLUCOSE; Start 04/29/19 at 08:30 Dextrose (D50w Syringe) 25 ml Q15M PRN IV DECREASED GLUCOSE; Start 04/29/19 at 08:30 Dextrose (D50w Syringe) 50 ml Q15M PRN IV DECREASED GLUCOSE; Start 04/29/19 at 08:30 Glucagon (Glucagen) 1 mg Q15M PRN IM DECREASED GLUCOSE; Start 04/29/19 at 08:30 Glucose (Glutose) 15 gm Q15M PRN BUCCAL DECREASED GLUCOSE; Start 04/29/19 at 08:30 Allergies: Coded Allergies: No Known Allergy (Unverified , 04/28/19) Past Surgical History Past Surgical Hx: other (Unknown) Family History Significant Family History: other (Unknown) Social History Alcohol Use: none Smoking Status: Never smoker Drug Use: none, other (Unknown) Exam/Review of Systems Exam Vitals Vital Signs Date Temp Pulse Resp B/P (MAP) Pulse Ox O2 O2 Flow FiO2 Time Delivery Rate 04/30/19 70 18 99 40 06:04 04/30/19 109/69 Mechanical 06:00 (82) Ventilator 04/30/19 98.7 04:00 Intake and Output 04/29/19 04/29/19 04/30/19 1515:00 23:00 07:00 IntakeIntake Total 744.5 ml 990 ml 990 ml OutputOutput Total 240 ml 340 ml 400 ml BalanceBalance 504.5 ml 650 ml 590 ml Constitutional: other (Intubated noncommunicative sedated) Eyes: nl conjunctiva, EOMI, nl lids, nl sclera, PERRL Respiratory: clear to auscultation, normal air movement Cardiovascular: regular rate and rhythm, nl pulses; No bruits, No diastolic murmur, No edema, No gallop, No irregular rhythm, No jugular venous distention (JVD), No murmurs/extra sounds, No rub, No systolic murmur, No S3, No S4, No other Gastrointestinal: No soft, No nl liver, spleen, No non-tender, No ascites, No bowel sounds, No distended, No firm, No hepatomegaly, No mass, No rebound or guarding, No splenomegaly, No surgical scars, No tender, No other Neurological: other (Does respond to tactile stimulation when sedation is decreased nonpurposeful movements cannot participate in cranial examination) Results Result Diagram: 04/29/19 0500 04/29/19 0500 Results 24hrs Laboratory Tests Test 04/29/19 09:20 04/29/19 10:24 04/29/19 11:38 04/29/19 13:43 Bedside Glucose 109 122 127 151 Test 04/29/19 16:47 04/29/19 21:55 04/30/19 01:13 04/30/19 04:56 Bedside Glucose 216 199 198 203 Medications Medication Current Medications Potassium Chloride/Sodium Chloride 1,000 ml @ 100 mls/hr Q10H IV Last administered on 04/30/19at 05:18; Admin Dose 100 MLS/HR; Start 04/28/19 at 10:51 IV Flush (NS 3 ml) 3 ml PER PROTOCOL IV ; Start 04/28/19 at 11:00 Ondansetron HCl (Zofran Inj) 4 mg Q6H PRN IV NAUSEA/VOMITING; Start 04/28/19 at 11:00 Aspirin (Aspirin) 81 mg DAILY NGT Last administered on 04/29/19at 09:00; Admin Dose 81 MG; Start 04/28/19 at 11:00 Famotidine (Pepcid Iv) 20 mg Q24H IV Last administered on 04/29/19at 12:03; Admin Dose 20 MG; Start 04/28/19 at 11:40 Heparin Sodium (Porcine) (Heparin (5000 Units/1ml)) 5,000 unit Q12 SC Last administered on 04/29/19at 21:58; Admin Dose 5,000 UNIT; Start 04/28/19 at 11:00 Cefepime HCl 50 ml @ 100 mls/hr Q24H IVPB Last administered on 04/30/19at 05:05; Admin Dose 100 MLS/HR; Start 04/29/19 at 06:00 Fentanyl 100 ml @ 2.5 mls/hr TITRATE IV Last administered on 04/30/19at 02:13; Admin Dose 5 MLS/HR; Start 04/28/19 at 18:00 Insulin Aspart (Novolog Insulin Pen) NOVOLOG *MODERATE* ALGORI... Q4 SC Last administered on 04/30/19at 05:02; Admin Dose 4 UNIT; Start 04/29/19 at 09:00 Insulin Glargine (Lantus) 12 units DAILY@0800 SC Last administered on 04/29/19at 09:53; Admin Dose 12 UNITS; Start 04/29/19 at 09:00 Miscellaneous Information 1 ea NOTE XX ; Start 04/29/19 at 08:30 Glucose (Glutose) 15 gm Q15M PRN PO DECREASED GLUCOSE; Start 04/29/19 at 08:30 Glucose (Glutose) 22.5 gm Q15M PRN PO DECREASED GLUCOSE; Start 04/29/19 at 08:30 Dextrose (D50w Syringe) 25 ml Q15M PRN IV DECREASED GLUCOSE; Start 04/29/19 at 08:30 Dextrose (D50w Syringe) 50 ml Q15M PRN IV DECREASED GLUCOSE; Start 04/29/19 at 08:30 Glucagon (Glucagen) 1 mg Q15M PRN IM DECREASED GLUCOSE; Start 04/29/19 at 08:30 Glucose (Glutose) 15 gm Q15M PRN BUCCAL DECREASED GLUCOSE; Start 04/29/19 at 08:30 CONOR MANUEL Apr 30, 2019 08:06
[2019-04-30] MEDS: INSULIN GLARGINE [LANTus] (100 UNITS/ML) SYG SC SCH (09:16)
[2019-04-30] MEDS: HEPARIN 5,000 UNIT/1 ML VIAL SC SCH ×2 (09:17→21:03)
[2019-04-30] MEDS: ASPIRIN 81 MG TAB NGT SCH (09:26)
--- NOTE | 2019-04-30 09:31 | PN ---
Date/Time of Note Date/Time of Note DATE: 04/30/19 TIME: 09:25 Subjective Patient remains intubated and sedated Objective Vitals Vital Signs Date Temp Pulse Resp B/P (MAP) Pulse Ox O2 O2 Flow FiO2 Time Delivery Rate 04/30/19 70 18 99 40 06:04 04/30/19 109/69 Mechanical 06:00 (82) Ventilator 04/30/19 98.7 04:00 Intake and Output 04/29/19 04/29/19 04/30/19 1515:00 23:00 07:00 IntakeIntake Total 744.5 ml 990 ml 990 ml OutputOutput Total 240 ml 340 ml 400 ml BalanceBalance 504.5 ml 650 ml 590 ml Bilateral rhonchi Regular rate and rhythm Soft normoactive bowel sounds No edema Results Result Diagram: 04/29/19 0500 04/29/19 0500 Medications Medications Current Medications Potassium Chloride/Sodium Chloride 1,000 ml @ 100 mls/hr Q10H IV Last administered on 04/30/19at 05:18; Admin Dose 100 MLS/HR; Start 04/28/19 at 10:51 IV Flush (NS 3 ml) 3 ml PER PROTOCOL IV ; Start 04/28/19 at 11:00 Ondansetron HCl (Zofran Inj) 4 mg Q6H PRN IV NAUSEA/VOMITING; Start 04/28/19 at 11:00 Aspirin (Aspirin) 81 mg DAILY NGT Last administered on 04/29/19at 09:00; Admin Dose 81 MG; Start 04/28/19 at 11:00 Famotidine (Pepcid Iv) 20 mg Q24H IV Last administered on 04/29/19at 12:03; Admin Dose 20 MG; Start 04/28/19 at 11:40 Heparin Sodium (Porcine) (Heparin (5000 Units/1ml)) 5,000 unit Q12 SC Last administered on 04/29/19at 21:58; Admin Dose 5,000 UNIT; Start 04/28/19 at 11:00 Cefepime HCl 50 ml @ 100 mls/hr Q24H IVPB Last administered on 04/30/19at 05:05; Admin Dose 100 MLS/HR; Start 04/29/19 at 06:00 Fentanyl 100 ml @ 2.5 mls/hr TITRATE IV Last administered on 04/30/19at 02:13; Admin Dose 5 MLS/HR; Start 04/28/19 at 18:00 Insulin Aspart (Novolog Insulin Pen) NOVOLOG *MODERATE* ALGORI... Q4 SC Last administered on 04/30/19at 05:02; Admin Dose 4 UNIT; Start 04/29/19 at 09:00 Insulin Glargine (Lantus) 12 units DAILY@0800 SC Last administered on 04/29/19at 09:53; Admin Dose 12 UNITS; Start 04/29/19 at 09:00 Miscellaneous Information 1 ea NOTE XX ; Start 04/29/19 at 08:30 Glucose (Glutose) 15 gm Q15M PRN PO DECREASED GLUCOSE; Start 04/29/19 at 08:30 Glucose (Glutose) 22.5 gm Q15M PRN PO DECREASED GLUCOSE; Start 04/29/19 at 08:30 Dextrose (D50w Syringe) 25 ml Q15M PRN IV DECREASED GLUCOSE; Start 04/29/19 at 08:30 Dextrose (D50w Syringe) 50 ml Q15M PRN IV DECREASED GLUCOSE; Start 04/29/19 at 08:30 Glucagon (Glucagen) 1 mg Q15M PRN IM DECREASED GLUCOSE; Start 04/29/19 at 08:30 Glucose (Glutose) 15 gm Q15M PRN BUCCAL DECREASED GLUCOSE; Start 04/29/19 at 08:30 VTE Prophylaxis Risk score (from Ns)>0 risk: 11 [place]CD applied [place] [facility] [place] Lines/Catheters IV Catheter Type: Saline Lock Cooper in Place: Yes (ICU status) Cont'd cooper catheter reason: other (indicate) (ICU status) Assessment/Plan Assessment/Plan 83-year-old male with acute respiratory failure, status post mechanical ventilation History of recent CVA Advanced Alzheimer's dementia Hypertension Thrombocytopenia Stage III chronic kidney disease Wean off the ventilator Pulmonary and palliative care follow-up [employer] emergency services manager consultation ALEXANDRIA WAGNER MD Apr 30, 2019 09:31
--- NOTE | 2019-04-30 10:48 | CONS ---
Consult Date/Type/Reason Admit Date/Time Apr 28, 2019 at 05:40 Initial Consult Date 04/28/19 Type of Consult Pulmonary Date/Time of Note DATE: 04/30/19 TIME: 10:45 Subjective Still somewhat somnolent this morning on fentanyl drip sedation is held. Currently hemodynamically stable. Objective Vital Signs Date Temp Pulse Resp B/P (MAP) Pulse Ox O2 O2 Flow FiO2 Time Delivery Rate 04/30/19 68 17 125/73 100 Mechanical 10:00 (90) Ventilator 04/30/19 98.4 08:00 04/30/19 40 08:00 Intake and Output 04/29/19 04/29/19 04/30/19 1515:00 23:00 07:00 IntakeIntake Total 744.5 ml 990 ml 990 ml OutputOutput Total 240 ml 340 ml 400 ml BalanceBalance 504.5 ml 650 ml 590 ml Exam GENERAL: VITAL SIGNS: per chart NECK: Supple. No JVD or lymphadenopathy. CARDIAC EXAM: S1, S2. No added sounds or murmurs. CHEST: clear bilaterally, No added sounds, rales or wheezes ABDOMEN: Soft, nontender. No guarding or rebound. EXTREMITIES: No cyanosis, clubbing or edema. NEUROLOGIC: Generalized weakness. Elderly appearing gentleman orally intubated on mechanical ventilation Vent Setting Ventilator Support Mode: AC Fraction of Inspired Oxygen pe: 40 Positive End Expiratory Pressu: 5.0 Results/Medications Result Diagram: 04/29/19 0500 04/29/19 0500 Results 24 hrs Laboratory Tests Test 04/29/19 11:38 04/29/19 13:43 04/29/19 16:47 04/29/19 21:55 Bedside Glucose 127 151 216 199 Test 04/30/19 01:13 04/30/19 04:56 04/30/19 09:06 Bedside Glucose 198 203 252 H Medications Current Medications Potassium Chloride/Sodium Chloride 1,000 ml @ 100 mls/hr Q10H IV Last administered on 04/30/19at 05:18; Admin Dose 100 MLS/HR; Start 04/28/19 at 10:51 IV Flush (NS 3 ml) 3 ml PER PROTOCOL IV ; Start 04/28/19 at 11:00 Ondansetron HCl (Zofran Inj) 4 mg Q6H PRN IV NAUSEA/VOMITING; Start 04/28/19 at 11:00 Aspirin (Aspirin) 81 mg DAILY NGT Last administered on 04/30/19at 09:26; Admin Dose 81 MG; Start 04/28/19 at 11:00 Famotidine (Pepcid Iv) 20 mg Q24H IV Last administered on 04/29/19at 12:03; Admin Dose 20 MG; Start 04/28/19 at 11:40 Heparin Sodium (Porcine) (Heparin (5000 Units/1ml)) 5,000 unit Q12 SC Last a dministered on 04/30/19at 09:17; Admin Dose 5,000 UNIT; Start 04/28/19 at 11:00 Cefepime HCl 50 ml @ 100 mls/hr Q24H IVPB Last administered on 04/30/19at 05:05; Admin Dose 100 MLS/HR; Start 04/29/19 at 06:00 Fentanyl 100 ml @ 2.5 mls/hr TITRATE IV Last administered on 04/30/19at 02:13; Admin Dose 5 MLS/HR; Start 04/28/19 at 18:00 Insulin Aspart (Novolog Insulin Pen) NOVOLOG *MODERATE* ALGORI... Q4 SC Last administered on 04/30/19at 09:08; Admin Dose 6 UNIT; Start 04/29/19 at 09:00 Insulin Glargine (Lantus) 12 units DAILY@0800 SC Last administered on 04/30/19at 09:16; Admin Dose 12 UNITS; Start 04/29/19 at 09:00 Miscellaneous Information 1 ea NOTE XX ; Start 04/29/19 at 08:30 Glucose (Glutose) 15 gm Q15M PRN PO DECREASED GLUCOSE; Start 04/29/19 at 08:30 Glucose (Glutose) 22.5 gm Q15M PRN PO DECREASED GLUCOSE; Start 04/29/19 at 08:30 Dextrose (D50w Syringe) 25 ml Q15M PRN IV DECREASED GLUCOSE; Start 04/29/19 at 08:30 Dextrose (D50w Syringe) 50 ml Q15M PRN IV DECREASED GLUCOSE; Start 04/29/19 at 08:30 Glucagon (Glucagen) 1 mg Q15M PRN IM DECREASED GLUCOSE; Start 04/29/19 at 08:30 Glucose (Glutose) 15 gm Q15M PRN BUCCAL DECREASED GLUCOSE; Start 04/29/19 at 08:30 Assessment/Plan Hospital Course (Demo Recall) IMP: 1. Acute Respiratory Failure--2/2 central airway obstruction due to choking on food. 2. Encephalopathy--multifactorial. Toxic-metabolic on top of baseline dementia. 3. AG Metabolic acidosis--query mild DKA +/- lactic acidosis 4. KYAW--on CKD, likely pre-renal 5. Hypernatremia 6. Dementia RECS: 1. Vent support; Anticipate weaning trial today if tolerated 2. Limit sedative if possible 3. Obtain serum ketones and lactate 4. Fluid resuscitation with LR 5. May initiate TF and Free H20 soon; nutrition consult Critical care time 40 minutes Discussed goals of care with family and CODE STATUS. SHIRA SUE MD, [facility] Apr 30, 2019 10:48
[2019-04-30] MEDS: FAMOTIDINE 20 MG INJ IV SCH (13:01)
[2019-05-01] VITALS (19 sets, daily range): BP systolic 115–166; BP diastolic 64–98; PULSE 84–112; RESP 14–24
[2019-05-01] MEDS: INSULIN ASPART [NOVOLOG] 3 ML PEN SC SCH ×6 (01:36→21:15)
[2019-05-01] MEDS: CEFEPIME 2GM/50 ML (PMX) 50 ML IVPB SCH (05:35)
--- NOTE | 2019-05-01 08:41 | CONS ---
Consult Date/Type/Reason Admit Date/Time Apr 28, 2019 at 05:40 Initial Consult Date 04/28/19 Type of Consult Pulmonary Date/Time of Note DATE: 05/01/19 TIME: 08:39 Subjective Patient extubated yesterday. Remains comfortable but no respiratory distress. Objective Vital Signs Date Temp Pulse Resp B/P (MAP) Pulse Ox O2 O2 Flow FiO2 Time Delivery Rate 05/01/19 106 21 124/82 100 Nasal 4.0 06:00 (96) Cannula 05/01/19 98.5 04:00 04/30/19 30 21:30 Intake and Output 04/30/19 04/30/19 05/01/19 1515:00 23:00 07:00 IntakeIntake Total 995 ml 30 ml 390 ml OutputOutput Total 300 ml 310 ml 560 ml BalanceBalance 695 ml -280 ml -170 ml Exam GENERAL: Elderly gentleman on nasal cannula O2 nasogastric tube in place VITAL SIGNS: per chart NECK: Supple. No JVD or lymphadenopathy. CARDIAC EXAM: S1, S2. No added sounds or murmurs. CHEST: Diminished air entry bilaterally ABDOMEN: Soft, nontender. No guarding or rebound. EXTREMITIES: No cyanosis, clubbing or edema. NEUROLOGIC: Generalized weakness Vent Setting Ventilator Support Mode: CPAP, PS Fraction of Inspired Oxygen pe: 30 Positive End Expiratory Pressu: 5.0 Results/Medications Result Diagram: 05/01/19 0445 05/01/19 0445 Results 24 hrs Chest x-ray left-sided infiltrate versus effusion. Laboratory Tests Test 04/30/19 09:06 04/30/19 12:53 04/30/19 16:48 04/30/19 17:02 Bedside Glucose 252 H 264 H 213 Blood Gas Blood arterial Specimen Source Arterial Blood 04/30/2019 5:25:32 Date Drawn PM Arterial Blood 7.402 pH (Temp corrected) Arterial Blood 35.7 pCO2 (Temp correct) Arterial Blood 95.6 H pO2 (Temp corrected) Arterial Blood 21.7 L HCO3 Arterial Blood -2.5 Base Excess Arterial Blood 96.9 Oxygen Saturatio n Ashok Test ACCEPTAB Arterial Blood Left Radial Gas Puncture Site Arterial 0.3 Blood Carboxyhem oglobin Arterial Blood 0.2 Methemoglobin Blood Gas A-a O2 148.5 H Differential Oxyhemoglobin 96.4 Percent Blood Gas 37.0 Temperature Blood Gas VENT - CPAP Modality FiO2 40.0 Blood Gas Low 5.0 PEEP Setting Blood Gas 10 Pressure Support Blood Gas Carmelo COLE Notified Whom Blood Gas 04/30/2019 5:42:39 Notified Time PM Test 04/30/19 20:58 05/01/19 01:29 05/01/19 04:45 05/01/19 05:16 Bedside Glucose 207 186 White Blood 10.6 # Count Red Blood Count 4.21 L Hemoglobin 12.2 L Hematocrit 40.2 L Mean Corpuscular 95.5 Volume Mean Corpuscular 29.0 Hemoglobin Mean Corpuscular 30.3 L Hemoglobin Kathy nt Red Cell 12.9 Distribution Width Platelet Count 105 L Mean Platelet 12.7 H Volume Immature 1.800 H Granulocytes % Neutrophils % 81.4 H Lymphocytes % 5.9 L Monocytes % 10.1 Eosinophils % 0.1 Basophils % 0.7 Nucleated Red 0.0 Blood Cells % Immature 0.190 H Granulocytes # Neutrophils # 8.7 H Lymphocytes # 0.6 L Monocytes # 1.1 H Eosinophils # 0.0 Basophils # 0.1 Nucleated Red 0.0 Blood Cells # Sodium Level 153 H Potassium Level 4.6 Chloride Level 123 H Carbon Dioxide 25 Level Anion Gap 5 Blood Urea 56 H Nitrogen Creatinine 1.21 Est Glomerular Filtrat Rate mL/min Glucose Level 248 #H Calcium Level 9.0 Phosphorus Level 2.8 Magnesium Level 3.0 H Procalcitonin 2.85 H Blood Gas Blood arterial Specimen Source Arterial Blood 05/01/2019 5:25:21 Date Drawn AM Arterial Blood 7.392 pH (Temp corrected) Arterial Blood 38.5 pCO2 (Temp correct) Arterial Blood 70.0 L pO2 (Temp corrected) Arterial Blood 22.9 HCO3 Arterial Blood -1.7 Base Excess Arterial Blood 93.6 L Oxygen Saturatio n Ashok Test N/A Arterial Blood LB Gas Puncture Site Arterial 0.3 Blood Carboxyhem oglobin Arterial Blood 0.3 Methemoglobin Blood Gas A-a O2 98.7 H Differential Oxyhemoglobin 93.0 Percent Blood Gas 37.0 Temperature Blood Gas Actual 24 Respiration Rate Blood Gas NASAL CANNULA Modality FiO2 30.0 Blood Gas Alverto OLSEN RN Critical Value Read Back Blood Gas BL Notified Whom Blood Gas 05/01/2019 5:38:10 Notified Time AM Test 05/01/19 05:34 Bedside Glucose 259 H Medications Current Medications IV Flush (NS 3 ml) 3 ml PER PROTOCOL IV ; Start 04/28/19 at 11:00 Ondansetron HCl (Zofran Inj) 4 mg Q6H PRN IV NAUSEA/VOMITING; Start 04/28/19 at 11:00 Aspirin (Aspirin) 81 mg DAILY NGT Last administered on 04/30/19at 09:26; Admin Dose 81 MG; Start 04/28/19 at 11:00 Famotidine (Pepcid Iv) 20 mg Q24H IV Last administered on 04/30/19at 13:01; Admin Dose 20 MG; Start 04/28/19 at 11:40 Heparin Sodium (Porcine) (Heparin (5000 Units/1ml)) 5,000 unit Q12 SC Last administered on 04/30/19at 21:03; Admin Dose 5,000 UNIT; Start 04/28/19 at 11:00 Cefepime HCl 50 ml @ 100 mls/hr Q24H IVPB Last administered on 05/01/19at 05:35; Admin Dose 100 MLS/HR; Start 04/29/19 at 06:00 Fentanyl 100 ml @ 2.5 mls/hr TITRATE IV Last administered on 04/30/19at 02:13; Admin Dose 5 MLS/HR; Start 04/28/19 at 18:00 Insulin Aspart (Novolog Insulin Pen) NOVOLOG *MODERATE* ALGORI... Q4 SC Last administered on 05/01/19at 05:43; Admin Dose 6 UNIT; Start 04/29/19 at 09:00 Miscellaneous Information 1 ea NOTE XX ; Start 04/29/19 at 08:30 Glucose (Glutose) 15 gm Q15M PRN PO DECREASED GLUCOSE; Start 04/29/19 at 08:30 Glucose (Glutose) 22.5 gm Q15M PRN PO DECREASED GLUCOSE; Start 04/29/19 at 08:30 Dextrose (D50w Syringe) 25 ml Q15M PRN IV DECREASED GLUCOSE; Start 04/29/19 at 08:30 Dextrose (D50w Syringe) 50 ml Q15M PRN IV DECREASED GLUCOSE; Start 04/29/19 at 08:30 Glucagon (Glucagen) 1 mg Q15M PRN IM DECREASED GLUCOSE; Start 04/29/19 at 08:30 Glucose (Glutose) 15 gm Q15M PRN BUCCAL DECREASED GLUCOSE; Start 04/29/19 at 08:30 Insulin Glargine (Lantus) 18 units DAILY@0800 SC ; Start 05/01/19 at 08:00 Assessment/Plan Hospital Course (Demo Recall) IMP: 1. Acute Respiratory Failure--2/2 central airway obstruction due to choking on food. 2. Encephalopathy--multifactorial. Toxic-metabolic on top of baseline dementia. 3. AG Metabolic acidosis--query mild DKA +/- lactic acidosis 4. KYAW--on CKD, likely pre-renal 5. Hypernatremia 6. Dementia history of CVA RECS: 1. Aspiration precautions nasal cannula O2 2. Consider increasing free water. 3. Continue antibiotics per primary team 4. Glycemic management 5. Patient may require a G-tube given his persistent encephalopathy Critical care time 40 minutes Discussed goals of care with family and CODE STATUS. Stable for transfer to telemetry SHIRA SUE MD, [facility] May 01, 2019 08:41
[2019-05-01] MEDS: ASPIRIN 81 MG TAB NGT SCH (09:47)
[2019-05-01] MEDS: INSULIN GLARGINE [LANTus] (100 UNITS/ML) SYG SC SCH (09:52)
[2019-05-01] MEDS: HEPARIN 5,000 UNIT/1 ML VIAL SC SCH ×2 (09:53→21:14)
--- NOTE | 2019-05-01 10:55 | PN ---
Date/Time of Note Date/Time of Note DATE: 05/01/19 TIME: 10:51 Subjective Patient was extubated. Remains lethargic and poorly responsive Objective Vitals Vital Signs Date Temp Pulse Resp B/P (MAP) Pulse Ox O2 O2 Flow FiO2 Time Delivery Rate 05/01/19 106 24 166/98 98 Nasal 2.0 10:00 (120) Cannula 05/01/19 99.9 08:00 04/30/19 30 21:30 Intake and Output 04/30/19 04/30/19 05/01/19 1515:00 23:00 07:00 IntakeIntake Total 995 ml 30 ml 390 ml OutputOutput Total 300 ml 310 ml 560 ml BalanceBalance 695 ml -280 ml -170 ml Bilateral rhonchi Regular rate and rhythm Soft nontender normoactive bowel sounds No edema Moves his left side Results Result Diagram: 05/01/19 0445 05/01/19 0445 Medications Medications Current Medications IV Flush (NS 3 ml) 3 ml PER PROTOCOL IV ; Start 04/28/19 at 11:00 Ondansetron HCl (Zofran Inj) 4 mg Q6H PRN IV NAUSEA/VOMITING; Start 04/28/19 at 11:00 Aspirin (Aspirin) 81 mg DAILY NGT Last administered on 05/01/19at 09:47; Admin Dose 81 MG; Start 04/28/19 at 11:00 Famotidine (Pepcid Iv) 20 mg Q24H IV Last administered on 04/30/19at 13:01; Admin Dose 20 MG; Start 04/28/19 at 11:40 Heparin Sodium (Porcine) (Heparin (5000 Units/1ml)) 5,000 unit Q12 SC Last administered on 05/01/19at 09:53; Admin Dose 5,000 UNIT; Start 04/28/19 at 11:00 Cefepime HCl 50 ml @ 100 mls/hr Q24H IVPB Last administered on 05/01/19at 05:35; Admin Dose 100 MLS/HR; Start 04/29/19 at 06:00 Fentanyl 100 ml @ 2.5 mls/hr TITRATE IV Last administered on 04/30/19at 02:13; Admin Dose 5 MLS/HR; Start 04/28/19 at 18:00 Insulin Aspart (Novolog Insulin Pen) NOVOLOG *MODERATE* ALGORI... Q4 SC Last administered on 05/01/19at 09:51; Admin Dose 6 UNIT; Start 04/29/19 at 09:00 Miscellaneous Information 1 ea NOTE XX ; Start 04/29/19 at 08:30 Glucose (Glutose) 15 gm Q15M PRN PO DECREASED GLUCOSE; Start 04/29/19 at 08:30 Glucose (Glutose) 22.5 gm Q15M PRN PO DECREASED GLUCOSE; Start 04/29/19 at 08:30 Dextrose (D50w Syringe) 25 ml Q15M PRN IV DECREASED GLUCOSE; Start 04/29/19 at 08:30 Dextrose (D50w Syringe) 50 ml Q15M PRN IV DECREASED GLUCOSE; Start 04/29/19 at 08:30 Glucagon (Glucagen) 1 mg Q15M PRN IM DECREASED GLUCOSE; Start 04/29/19 at 08:30 Glucose (Glutose) 15 gm Q15M PRN BUCCAL DECREASED GLUCOSE; Start 04/29/19 at 08:30 Insulin Glargine (Lantus) 18 units DAILY@0800 SC Last administered on 05/01/19at 09:52; Admin Dose 18 UNITS; Start 05/01/19 at 08:00 VTE Prophylaxis Risk score (from Ns)>0 risk: 11 SCD applied (from Ns): Yes Lines/Catheters IV Catheter Type: Saline Lock Hugo in Place: No Assessment/Plan Assessment/Plan 83-year-old male with acute respiratory failure. Status post extubation Dysphagia Recent CVA with right hemiparesis Advanced Alzheimer's dementia Hypertension Altered mental status Transfer to [facility] pulmonary and palliative care follow-up Prognosis is poor. He will need G-tube placement if he remains full code. ALEXANDRIA WAGNER MD May 01, 2019 10:55
[2019-05-01] MEDS: FAMOTIDINE 20 MG INJ IV SCH (12:01)
--- NOTE | 2019-05-01 13:12 | CONS ---
Assessment/Plan Assessment/Plan Assessment/Plan (Daily) Patient was extubated last evening and from a respiratory standpoint is stable. From a neurological standpoint he still obtunded nonresponsive to any verbal or commands does not move his right upper and right lower extremity. I have been asked to consider comfort measures in this gentleman however without a next of kin cannot do so without [employer] . Placed a call to [employer] . Consultation Date/Type/Reason Admit Date/Time Apr 28, 2019 at 05:40 Initial Consult Date 04/28/19 Date/Time of Note DATE: 05/01/19 TIME: 12:45 Exam/Review of Systems Exam Vitals Vital Signs Date Temp Pulse Resp B/P (MAP) Pulse Ox O2 O2 Flow FiO2 Time Delivery Rate 05/01/19 105 22 139/81 96 Nasal 2.0 11:00 (100) Cannula 05/01/19 99.9 08:00 04/30/19 30 21:30 Intake and Output 04/30/19 04/30/19 05/01/19 1515:00 23:00 07:00 IntakeIntake Total 995 ml 30 ml 430 ml OutputOutput Total 300 ml 310 ml 735 ml BalanceBalance 695 ml -280 ml -305 ml Results Result Diagram: 05/01/19 0445 05/01/19 0445 Results 24hrs Laboratory Tests Test 04/30/19 12:53 04/30/19 16:48 04/30/19 17:02 04/30/19 20:58 Bedside Glucose 264 H 213 207 Blood Gas Blood arterial Specimen Source Arterial Blood 04/30/2019 5:25:32 Date Drawn PM Arterial Blood 7.402 pH (Temp corrected) Arterial Blood 35.7 pCO2 (Temp correct) Arterial Blood 95.6 H pO2 (Temp corrected) Arterial Blood 21.7 L HCO3 Arterial Blood -2.5 Base Excess Arterial Blood 96.9 Oxygen Saturatio n Ashok Test ACCEPTAB Arterial Blood Left Radial Gas Puncture Site Arterial 0.3 Blood Carboxyhem oglobin Arterial Blood 0.2 Methemoglobin Blood Gas A-a O2 148.5 H Differential Oxyhemoglobin 96.4 Percent Blood Gas 37.0 Temperature Blood Gas VENT - CPAP Modality FiO2 40.0 Blood Gas Low 5.0 PEEP Setting Blood Gas 10 Pressure Support Blood Gas Carmelo COLE Notified Whom Blood Gas 04/30/2019 5:42:39 Notified Time PM Test 05/01/19 01:29 05/01/19 04:45 05/01/19 05:16 05/01/19 05:34 Bedside Glucose 186 259 H White Blood 10.6 # Count Red Blood Count 4.21 L Hemoglobin 12.2 L Hematocrit 40.2 L Mean Corpuscular 95.5 Volume Mean Corpuscular 29.0 Hemoglobin Mean Corpuscular 30.3 L Hemoglobin Kathy nt Red Cell 12.9 Distribution Width Platelet Count 105 L Mean Platelet 12.7 H Volume Immature 1.800 H Granulocytes % Neutrophils % 81.4 H Lymphocytes % 5.9 L Monocytes % 10.1 Eosinophils % 0.1 Basophils % 0.7 Nucleated Red 0.0 Blood Cells % Immature 0.190 H Granulocytes # Neutrophils # 8.7 H Lymphocytes # 0.6 L Monocytes # 1.1 H Eosinophils # 0.0 Basophils # 0.1 Nucleated Red 0.0 Blood Cells # Sodium Level 153 H Potassium Level 4.6 Chloride Level 123 H Carbon Dioxide 25 Level Anion Gap 5 Blood Urea 56 H Nitrogen Creatinine 1.21 Est Glomerular Filtrat Rate mL/min Glucose Level 248 #H Calcium Level 9.0 Phosphorus Level 2.8 Magnesium Level 3.0 H Procalcitonin 2.85 H Blood Gas Blood arterial Specimen Source Arterial Blood 05/01/2019 5:25:21 Date Drawn AM Arterial Blood 7.392 pH (Temp corrected) Arterial Blood 38.5 pCO2 (Temp correct) Arterial Blood 70.0 L pO2 (Temp corrected) Arterial Blood 22.9 HCO3 Arterial Blood -1.7 Base Excess Arterial Blood 93.6 L Oxygen Saturatio n Ashok Test N/A Arterial Blood LB Gas Puncture Site Arterial 0.3 Blood Carboxyhem oglobin Arterial Blood 0.3 Methemoglobin Blood Gas A-a O2 98.7 H Differential Oxyhemoglobin 93.0 Percent Blood Gas 37.0 Temperature Blood Gas Actual 24 Respiration Rate Blood Gas NASAL CANNULA Modality FiO2 30.0 Blood Gas Alverto OLSEN RN Critical Value Read Back Blood Gas BL Notified Whom Blood Gas 05/01/2019 5:38:10 Notified Time AM Test 05/01/19 09:47 Bedside Glucose 225 H Medications Medication Current Medications IV Flush (NS 3 ml) 3 ml PER PROTOCOL IV ; Start 04/28/19 at 11:00 Ondansetron HCl (Zofran Inj) 4 mg Q6H PRN IV NAUSEA/VOMITING; Start 04/28/19 at 11:00 Aspirin (Aspirin) 81 mg DAILY NGT Last administered on 05/01/19at 09:47; Admin Dose 81 MG; Start 04/28/19 at 11:00 Famotidine (Pepcid Iv) 20 mg Q24H IV Last administered on 05/01/19at 12:01; Admin Dose 20 MG; Start 04/28/19 at 11:40 Heparin Sodium (Porcine) (Heparin (5000 Units/1ml)) 5,000 unit Q12 SC Last administered on 05/01/19 09:53; Admin Dose 5,000 UNIT; Start 04/28/19 at 11:00 Cefepime HCl 50 ml @ 100 mls/hr Q24H IVPB Last administered on 05/01/19 05:35; Admin Dose 100 MLS/HR; Start 04/29/19 at 06:00 Insulin Aspart (Novolog Insulin Pen) NOVOLOG *MODERATE* ALGORI... Q4 SC Last administered on 05/01/19at 09:51; Admin Dose 6 UNIT; Start 04/29/19 at 09:00 Miscellaneous Information 1 ea NOTE XX ; Start 04/29/19 at 08:30 Glucose (Glutose) 15 gm Q15M PRN PO DECREASED GLUCOSE; Start 04/29/19 at 08:30 Glucose (Glutose) 22.5 gm Q15M PRN PO DECREASED GLUCOSE; Start 04/29/19 at 08:30 Dextrose (D50w Syringe) 25 ml Q15M PRN IV DECREASED GLUCOSE; Start 04/29/19 at 08:30 Dextrose (D50w Syringe) 50 ml Q15M PRN IV DECREASED GLUCOSE; Start 04/29/19 at 08:30 Glucagon (Glucagen) 1 mg Q15M PRN IM DECREASED GLUCOSE; Start 04/29/19 at 08:30 Glucose (Glutose) 15 gm Q15M PRN BUCCAL DECREASED GLUCOSE; Start 04/29/19 at 08:30 Insulin Glargine (Lantus) 18 units DAILY@0800 SC Last administered on 05/01/19 09:52; Admin Dose 18 UNITS; Start 05/01/19 at 08:00 CONOR MANUEL May 01, 2019 13:12
[2019-05-01] MEDS ORDERED: ACETAMINOPHEN 650MG/20.3ML CUP NGT PRN (20:30)
[2019-05-01] MEDS: BALSAM PERU/CASTOR OIL 60 GM TUBE TOP SCH (21:12)
[2019-05-02] MEDS ORDERED: ACETAMINOPHEN 650MG/20.3ML CUP NGT ONE (00:30)
[2019-05-02] MEDS ORDERED: IBUPROFEN 600 MG TAB NGT ONE (00:30)
[2019-05-02] MEDS ORDERED: IBUPROFEN LIQUID (PED) 20 MG/ML CUP PO ONE (01:00)
[2019-05-02] MEDS: INSULIN ASPART [NOVOLOG] 3 ML PEN SC SCH ×6 (02:16→20:14)
[2019-05-02 02:49] VITALS: BP 139/75; PULSE 81; RESP 16
[2019-05-02] MEDS: CEFEPIME 2GM/50 ML (PMX) 50 ML IVPB SCH (06:03)
[2019-05-02 08:00] VITALS: BP 148/72; PULSE 96; RESP 17
--- NOTE | 2019-05-02 08:54 | PN ---
Date/Time of Note Date/Time of Note DATE: 05/02/19 TIME: 08:52 Subjective Remains obtunded Objective Vitals Vital Signs Date Temp Pulse Resp B/P (MAP) Pulse Ox O2 O2 Flow FiO2 Time Delivery Rate 05/02/19 98.4 96 17 148/72 93 Room Air 08:00 (97) 05/02/19 2.0 06:36 04/30/19 30 21:30 Intake and Output 05/01/19 05/01/19 05/02/19 1515:00 23:00 07:00 IntakeIntake Total 430 ml OutputOutput Total 800 ml 400 ml BalanceBalance -370 ml -400 ml Bilateral rhonchi Regular rate and rhythm Soft normoactive bowel sounds No edema Results Result Diagram: 05/01/1944405/01/19444 Medications Medications Current Medications IV Flush (NS 3 ml) 3 ml PER PROTOCOL IV ; Start 04/28/19 at 11:00 Ondansetron HCl (Zofran Inj) 4 mg Q6H PRN IV NAUSEA/VOMITING; Start 04/28/19 at 11:00 Aspirin (Aspirin) 81 mg DAILY NGT Last administered on 05/01/19at 09:47; Admin Dose 81 MG; Start 04/28/19 at 11:00 Famotidine (Pepcid Iv) 20 mg Q24H IV Last administered on 05/01/19at 12:01; Admin Dose 20 MG; Start 04/28/19 at 11:40 Heparin Sodium (Porcine) (Heparin (5000 Units/1ml)) 5,000 unit Q12 SC Last administered on 05/01/19at 21:14; Admin Dose 5,000 UNIT; Start 04/28/19 at 11:00 Cefepime HCl 50 ml @ 100 mls/hr Q24H IVPB Last administered on 05/02/19at 06:03; Admin Dose 100 MLS/HR; Start 04/29/19 at 06:00 Insulin Aspart (Novolog Insulin Pen) NOVOLOG *MODERATE* ALGORI... Q4 SC Last administered on 05/02/19at 04:56; Admin Dose 6 UNIT; Start 04/29/19 at 09:00 Miscellaneous Information 1 ea NOTE XX ; Start 04/29/19 at 08:30 Glucose (Glutose) 15 gm Q15M PRN PO DECREASED GLUCOSE; Start 04/29/19 at 08:30 Glucose (Glutose) 22.5 gm Q15M PRN PO DECREASED GLUCOSE; Start 04/29/19 at 08:30 Dextrose (D50w Syringe) 25 ml Q15M PRN IV DECREASED GLUCOSE; Start 04/29/19 at 08:30 Dextrose (D50w Syringe) 50 ml Q15M PRN IV DECREASED GLUCOSE; Start 04/29/19 at 08:30 Glucagon (Glucagen) 1 mg Q15M PRN IM DECREASED GLUCOSE; Start 04/29/19 at 08:30 Glucose (Glutose) 15 gm Q15M PRN BUCCAL DECREASED GLUCOSE; Start 04/29/19 at 08:30 Insulin Glargine (Lantus) 18 units DAILY@0800 SC Last administered on 05/01/19at 09:52; Admin Dose 18 UNITS; Start 05/01/19 at 08:00 Multivitamins (Multivitamin) 30 ml DAILY NGT ; Start 05/02/19 at 09:00 Ascorbic Acid (Vitamin C) 250 mg DAILY NGT ; Start 05/02/19 at 09:00 Zinc Sulfate (Zinc Sulfate) 220 mg DAILY NGT ; Start 05/02/19 at 09:00 Folic Acid (Folic Acid) 1 mg DAILY NGT ; Start 05/02/19 at 09:00 VTE Prophylaxis Risk score (from Nsg)>0 risk: 10 SCD applied (from Nsg): Yes Lines/Catheters IV Catheter Type: Central Line Central line still needed: No Hugo in Place: No Assessment/Plan Assessment/Plan 83-year-old male with acute respiratory failure, status post extubation Dysphagia Recent CVA with right hemiparesis Obtunded state Advanced Alzheimer's dementia Hypertension Full code. There are no family members Proceed with G-tube placement Palliative care follow-up Await bioethics committee decision ALEXANDRIA WAGNER MD May 02, 2019 08:54
[2019-05-02] MEDS: ASCORBIC ACID 250 MG TAB NGT SCH (09:29)
[2019-05-02] MEDS: FOLIC ACID 1 MG TAB NGT SCH (09:29)
[2019-05-02] MEDS: ASPIRIN 81 MG TAB NGT SCH (09:29)
[2019-05-02] MEDS: ZINC SULFATE 220 MG CAP NGT SCH (09:29)
--- NOTE | 2019-05-02 09:29 | CONS ---
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 Code cannot be addressed at this time as there is no want to speak to unless we call a bioethics meeting which I think they will not address since patient is im proving. Will follow closely. Initial Consultation HPI Patient is extubated I have reached out to the [employer] of Bioethics Suggest G-tube placement I do not think bioethics would agree with comfort measures at this point. Outpatient Hospice services is very appropriate when p atient is transferred back to shelter. Consultation Date/Type/Reason Admit Date/Time Apr 28, 2019 at 05:40 Initial Consult Date 04/28/19 Date/Time of Note DATE: 05/02/19 TIME: 09:25 Exam/Review of Systems Exam Vitals Vital Signs Date Temp Pulse Resp B/P (MAP) Pulse Ox O2 O2 Flow FiO2 Time Delivery Rate 05/02/19 98.4 96 17 148/72 93 Room Air 08:00 (97) 05/02/19 2.0 06:36 04/30/19 30 21:30 Intake and Output 05/01/19 05/01/19 05/02/19 1515:00 23:00 07:00 IntakeIntake Total 430 ml OutputOutput Total 800 ml 400 ml BalanceBalance -370 ml -400 ml Results Result Diagram: 05/01/19 0445 05/01/19 0445 Results 24hrs Laboratory Tests Test 05/01/19 09:47 05/01/19 13:30 05/01/19 17:40 05/01/19 20:23 Bedside Glucose 225 H 258 H 251 H 205 Test 05/02/19 02:03 05/02/19 04:53 Bedside Glucose 243 H 234 H Medications Medication Current Medications IV Flush (NS 3 ml) 3 ml PER PROTOCOL IV ; Start 04/28/19 at 11:00 Ondansetron HCl (Zofran Inj) 4 mg Q6H PRN IV NAUSEA/VOMITING; Start 04/28/19 at 11:00 Aspirin (Aspirin) 81 mg DAILY NGT Last administered on 05/01/19at 09:47; Admin Dose 81 MG; Start 04/28/19 at 11:00 Famotidine (Pepcid Iv) 20 mg Q24H IV Last administered on 05/01/19at 12:01; Admin Dose 20 MG; Start 04/28/19 at 11:40 Heparin Sodium (Porcine) (Heparin (5000 Units/1ml)) 5,000 unit Q12 SC Last administered on 05/01/19at 21:14; Admin Dose 5,000 UNIT; Start 04/28/19 at 11:00 Cefepime HCl 50 ml @ 100 mls/hr Q24H IVPB Last administered on 05/02/19at 06:03; Admin Dose 100 MLS/HR; Start 04/29/19 at 06:00 Insulin Aspart (Novolog Insulin Pen) NOVOLOG *MODERATE* ALGORI... Q4 SC Last administered on 05/02/19at 04:56; Admin Dose 6 UNIT; Start 04/29/19 at 09:00 Miscellaneous Information 1 ea NOTE XX ; Start 04/29/19 at 08:30 Glucose (Glutose) 15 gm Q15M PRN PO DECREASED GLUCOSE; Start 04/29/19 at 08:30 Glucose (Glutose) 22.5 gm Q15M PRN PO DECREASED GLUCOSE; Start 04/29/19 at 08:30 Dextrose (D50w Syringe) 25 ml Q15M PRN IV DECREASED GLUCOSE; Start 04/29/19 at 08:30 Dextrose (D50w Syringe) 50 ml Q15M PRN IV DECREASED GLUCOSE; Start 04/29/19 at 08:30 Glucagon (Glucagen) 1 mg Q15M PRN IM DECREASED GLUCOSE; Start 04/29/19 at 08:30 Glucose (Glutose) 15 gm Q15M PRN BUCCAL DECREASED GLUCOSE; Start 04/29/19 at 08:30 Insulin Glargine (Lantus) 18 units DAILY@0800 SC Last administered on 05/01/19at 09:52; Admin Dose 18 UNITS; Start 05/01/19 at 08:00 Multivitamins (Multivitamin) 30 ml DAILY NGT ; Start 05/02/19 at 09:00 Ascorbic Acid (Vitamin C) 250 mg DAILY NGT ; Start 05/02/19 at 09:00 Zinc Sulfate (Zinc Sulfate) 220 mg DAILY NGT ; Start 05/02/19 at 09:00 Folic Acid (Folic Acid) 1 mg DAILY NGT ; Start 05/02/19 at 09:00 CONOR MANUEL May 02, 2019 09:29
[2019-05-02] MEDS: HEPARIN 5,000 UNIT/1 ML VIAL SC SCH ×2 (09:30→20:07)
[2019-05-02] MEDS: BALSAM PERU/CASTOR OIL 60 GM TUBE TOP SCH ×2 (09:34→21:00)
[2019-05-02] MEDS: FAMOTIDINE 20 MG INJ IV SCH (11:00)
[2019-05-02] MEDS: MULTIVITAMINS 30 ML CUP NGT SCH (11:00)
[2019-05-02] MEDS: INSULIN GLARGINE [LANTus] (100 UNITS/ML) SYG SC SCH (11:02)
--- NOTE | 2019-05-02 13:06 | CONS ---
Assessment/Plan Assessment/Plan Assessment/Plan (Daily) Assessment and recommendations; 1. Patient admitted with likely aspiration pneumonia with interval clinical improvement. 2. Encephalopathy. 3. Prior CABG. Continue current supportive care. Prognosis appears poor. Consultation Date/Type/Reason Admit Date/Time Apr 28, 2019 at 05:40 Initial Consult Date 04/28/19 Type of Consult Pulmonary Patient's condition is tenuous at best. Exhibiting profound encephalopathy. Reason for Consultation H ENT exam; supple neck, patient has fair dentition. Nasogastric tube in place. No lymphadenopathy. No neck masses. Chest exam; diminished but clear breath sounds. S1-S2 audible, no murmurs. There is a well-healed sternal scar. Abdomen exam; soft, no organomegaly. Scaphoid. Bowel sounds audible. Extremity exam; peripheral edema. LEGAL ARBITRATOR exam; patient remains essentially noncommunicative. Exhibiting right-sided flaccid paralysis. Moves left side spontaneously. Date/Time of Note DATE: 05/02/19 TIME: 13:04 Exam/Review of Systems Exam Vitals Vital Signs Date Temp Pulse Resp B/P (MAP) Pulse Ox O2 O2 Flow FiO2 Time Delivery Rate 05/02/19 98.4 96 17 148/72 93 Room Air 08:00 (97) 05/02/19 2.0 06:36 04/30/19 30 21:30 Intake and Output 05/01/19 05/01/19 05/02/19 1515:00 23:00 07:00 IntakeIntake Total 430 ml OutputOutput Total 800 ml 400 ml BalanceBalance -370 ml -400 ml Results Result Diagram: 05/01/19 0445 05/01/19 0445 Results 24hrs Laboratory Tests Test 05/01/19 13:30 05/01/19 17:40 05/01/19 20:23 05/02/19 02:03 Bedside Glucose 258 H 251 H 205 243 H Test 05/02/19 04:53 05/02/19 09:21 05/02/19 10:58 05/02/19 12:41 Bedside Glucose 234 H 276 H 246 H 276 H Medications Medication Current Medications IV Flush (NS 3 ml) 3 ml PER PROTOCOL IV ; Start 04/28/19 at 11:00 Ondansetron HCl (Zofran Inj) 4 mg Q6H PRN IV NAUSEA/VOMITING; Start 04/28/19 at 11:00 Aspirin (Aspirin) 81 mg DAILY NGT Last administered on 05/02/19 09:29; Admin Dose 81 MG; Start 04/28/19 at 11:00 Famotidine (Pepcid Iv) 20 mg Q24H IV Last administered on 05/02/19 11:00; Admin Dose 20 MG; Start 04/28/19 at 11:40 Heparin Sodium (Porcine) (Heparin (5000 Units/1ml)) 5,000 unit Q12 SC Last administered on 05/02/19 09:30; Admin Dose 5,000 UNIT; Start 04/28/19 at 11:00 Cefepime HCl 50 ml @ 100 mls/hr Q24H IVPB Last administered on 05/02/19 06:03; Admin Dose 100 MLS/HR; Start 04/29/19 at 06:00 Insulin Aspart (Novolog Insulin Pen) NOVOLOG *MODERATE* ALGORI... Q4 SC Last administered on 05/02/19 12:44; Admin Dose 8 UNIT; Start 04/29/19 at 09:00 Miscellaneous Information 1 ea NOTE XX ; Start 04/29/19 at 08:30 Glucose (Glutose) 15 gm Q15M PRN PO DECREASED GLUCOSE; Start 04/29/19 at 08:30 Glucose (Glutose) 22.5 gm Q15M PRN PO DECREASED GLUCOSE; Start 04/29/19 at 08:30 Dextrose (D50w Syringe) 25 ml Q15M PRN IV DECREASED GLUCOSE; Start 04/29/19 at 08:30 Dextrose (D50w Syringe) 50 ml Q15M PRN IV DECREASED GLUCOSE; Start 04/29/19 at 08:30 Glucagon (Glucagen) 1 mg Q15M PRN IM DECREASED GLUCOSE; Start 04/29/19 at 08:30 Glucose (Glutose) 15 gm Q15M PRN BUCCAL DECREASED GLUCOSE; Start 04/29/19 at 08:30 Insulin Glargine (Lantus) 18 units DAILY@0800 SC Last administered on 05/02/19 11:02; Admin Dose 18 UNITS; Start 05/01/19 at 08:00 Multivitamins (Multivitamin) 30 ml DAILY NGT Last administered on 05/02/19 11:00; Admin Dose 30 ML; Start 05/02/19 at 09:00 Ascorbic Acid (Vitamin C) 250 mg DAILY NGT Last administered on 05/02/19 09:29; Admin Dose 250 MG; Start 05/02/19 at 09:00 Zinc Sulfate (Zinc Sulfate) 220 mg DAILY NGT Last administered on 05/02/19 09:29; Admin Dose 220 MG; Start 05/02/19 at 09:00 Folic Acid (Folic Acid) 1 mg DAILY NGT Last administered on 05/02/19 09:29; Admin Dose 1 MG; Start 05/02/19 at 09:00 RUDDY ORTEGA 6, 2019 13:06
[2019-05-02 14:00] VITALS: BP 126/62; PULSE 102; RESP 22
--- NOTE | 2019-05-02 15:00 | CONS ---
Assessment/Plan Assessment/Plan Hospital Course (Demo Recall) Summary Assessment and Plan: Assessment: Dysphasia Acute respiratory failure status post extubation Recent CVA with right hemiparesis Obtunded state Advanced Alzheimer's dementia Hypertension DM Plan: Agree PEG placement is appropriate for this patient as noted by Dr. Whitehead and Dr. Rehman Per Dr. Whitehead procedure deemed urgent and necessary-we will plan for PEG placement tomorrow INR in am Patient seen in collaboration with Dr. Nuñez CC: MITALI NUÑEZ MD ; Consultation Date/Type/Reason Admit Date/Time Apr 28, 2019 at 05:40 Date of Consultation: May 02, 2019 Type of Consult GI Reason for Consultation Dysphasia requiring PEG placement Date/Time of Note DATE: 05/02/19 TIME: 14:47 Hx of Present Illness This is an 83-year-old male admitted from [facility] past medical history of diabetes and kidney disease as well as advanced Alzheimer's dementia who was admitted for acute respiratory failure requiring intubation he is status post extubation with dysphagia recent CVA with right hemiparesis is noted he is an obtunded state. Has been consulted for PEG tube placement. Of note per records of social media content specialist patient does not have family, emergency contacts, nor does he have a decision-maker. There is initial call consult for bioethics currently patient is receiving nutrition via NG tube to be inserted on 28 April. Patient is currently obtunded resting in bed in no apparent distress tolerating tube feeding well. This patient would benefit from PEG placement as NG tube is not long-term solution for enteral feeding. Subjective hx not possible: pt non-verbal Past Medical History Medical History: cancer, congestive heart failure, renal disease Medications Current Medications IV Flush (NS 3 ml) 3 ml PER PROTOCOL IV ; Start 04/28/19 at 11:00 Ondansetron HCl (Zofran Inj) 4 mg Q6H PRN IV NAUSEA/VOMITING; Start 04/28/19 at 11:00 Aspirin (Aspirin) 81 mg DAILY NGT Last administered on 05/02/19at 09:29; Admin Dose 81 MG; Start 04/28/19 at 11:00 Famotidine (Pepcid Iv) 20 mg Q24H IV Last administered on 05/02/19at 11:00; Admin Dose 20 MG; Start 04/28/19 at 11:40 Heparin Sodium (Porcine) (Heparin (5000 Units/1ml)) 5,000 unit Q12 SC Last administered on 05/02/19 09:30; Admin Dose 5,000 UNIT; Start 04/28/19 at 11:00 Cefepime HCl 50 ml @ 100 mls/hr Q24H IVPB Last administered on 05/02/19 06:03; Admin Dose 100 MLS/HR; Start 04/29/19 at 06:00 Insulin Aspart (Novolog Insulin Pen) NOVOLOG *MODERATE* ALGORI... Q4 SC Last administered on 05/02/19at 12:44; Admin Dose 8 UNIT; Start 04/29/19 at 09:00 Miscellaneous Information 1 ea NOTE XX ; Start 04/29/19 at 08:30 Glucose (Glutose) 15 gm Q15M PRN PO DECREASED GLUCOSE; Start 04/29/19 at 08:30 Glucose (Glutose) 22.5 gm Q15M PRN PO DECREASED GLUCOSE; Start 04/29/19 at 08:30 Dextrose (D50w Syringe) 25 ml Q15M PRN IV DECREASED GLUCOSE; Start 04/29/19 at 08:30 Dextrose (D50w Syringe) 50 ml Q15M PRN IV DECREASED GLUCOSE; Start 04/29/19 at 08:30 Glucagon (Glucagen) 1 mg Q15M PRN IM DECREASED GLUCOSE; Start 04/29/19 at 08:30 Glucose (Glutose) 15 gm Q15M PRN BUCCAL DECREASED GLUCOSE; Start 04/29/19 at 08:30 Insulin Glargine (Lantus) 18 units DAILY@0800 SC Last administered on 05/02/19 11:02; Admin Dose 18 UNITS; Start 05/01/19 at 08:00 Multivitamins (Multivitamin) 30 ml DAILY NGT Last administered on 05/02/19 11:00; Admin Dose 30 ML; Start 05/02/19 at 09:00 Ascorbic Acid (Vitamin C) 250 mg DAILY NGT Last administered on 05/02/19 09:29; Admin Dose 250 MG; Start 05/02/19 at 09:00 Zinc Sulfate (Zinc Sulfate) 220 mg DAILY NGT Last administered on 05/02/19 09:29; Admin Dose 220 MG; Start 05/02/19 at 09:00 Folic Acid (Folic Acid) 1 mg DAILY NGT Last administered on 05/02/19 09:29; Admin Dose 1 MG; Start 05/02/19 at 09:00 Allergies: Coded Allergies: No Known Allergy (Unverified , 04/30/19) Past Surgical History Past Surgical Hx: other (Unknown) Social History Alcohol Use: none Smoking Status: Never smoker Drug Use: none, other (Unknown) Exam/Review of Systems Exam Vitals Vital Signs Date Temp Pulse Resp B/P (MAP) Pulse Ox O2 O2 Flow FiO2 Time Delivery Rate 05/02/19 2.0 14:06 05/02/19 98.4 96 17 148/72 93 Room Air 08:00 (97) 04/30/19 30 21:30 Intake and Output 05/01/19 05/01/19 05/02/19 1515:00 23:00 07:00 IntakeIntake Total 430 ml OutputOutput Total 800 ml 400 ml BalanceBalance -370 ml -400 ml Constitutional: non-verbal, other (obtunded- ) Head: normocephalic ENMT: nl external ears & nose, other (NGT in place) Neck: supple Respiratory: clear to auscultation Cardiovascular: regular rate and rhythm Gastrointestinal: soft, bowel sounds Results Result Diagram: 05/01/19 0445 05/01/19 0445 Results 24hrs Laboratory Tests Test 05/01/19 17:40 05/01/19 20:23 05/02/19 02:03 05/02/19 04:53 Bedside Glucose 251 H 205 243 H 234 H Test 05/02/19 09:21 05/02/19 10:58 05/02/19 12:41 Bedside Glucose 276 H 246 H 276 H Medications Medication Current Medications IV Flush (NS 3 ml) 3 ml PER PROTOCOL IV ; Start 04/28/19 at 11:00 Ondansetron HCl (Zofran Inj) 4 mg Q6H PRN IV NAUSEA/VOMITING; Start 04/28/19 at 11:00 Aspirin (Aspirin) 81 mg DAILY NGT Last administered on 05/02/19at 09:29; Admin Dose 81 MG; Start 04/28/19 at 11:00 Famotidine (Pepcid Iv) 20 mg Q24H IV Last administered on 05/02/19at 11:00; Admin Dose 20 MG; Start 04/28/19 at 11:40 Heparin Sodium (Porcine) (Heparin (5000 Units/1ml)) 5,000 unit Q12 SC Last administered on 05/02/19 09:30; Admin Dose 5,000 UNIT; Start 04/28/19 at 11:00 Cefepime HCl 50 ml @ 100 mls/hr Q24H IVPB Last administered on 05/02/19 06:03; Admin Dose 100 MLS/HR; Start 04/29/19 at 06:00 Insulin Aspart (Novolog Insulin Pen) NOVOLOG *MODERATE* ALGORI... Q4 SC Last administered on 05/02/19at 12:44; Admin Dose 8 UNIT; Start 04/29/19 at 09:00 Miscellaneous Information 1 ea NOTE XX ; Start 04/29/19 at 08:30 Glucose (Glutose) 15 gm Q15M PRN PO DECREASED GLUCOSE; Start 04/29/19 at 08:30 Glucose (Glutose) 22.5 gm Q15M PRN PO DECREASED GLUCOSE; Start 04/29/19 at 08:30 Dextrose (D50w Syringe) 25 ml Q15M PRN IV DECREASED GLUCOSE; Start 04/29/19 at 08:30 Dextrose (D50w Syringe) 50 ml Q15M PRN IV DECREASED GLUCOSE; Start 04/29/19 at 08:30 Glucagon (Glucagen) 1 mg Q15M PRN IM DECREASED GLUCOSE; Start 04/29/19 at 08:30 Glucose (Glutose) 15 gm Q15M PRN BUCCAL DECREASED GLUCOSE; Start 04/29/19 at 08:30 Insulin Glargine (Lantus) 18 units DAILY@0800 SC Last administered on 05/02/19at 11:02; Admin Dose 18 UNITS; Start 05/01/19 at 08:00 Multivitamins (Multivitamin) 30 ml DAILY NGT Last administered on 05/02/19at 11:00; Admin Dose 30 ML; Start 05/02/19 at 09:00 Ascorbic Acid (Vitamin C) 250 mg DAILY NGT Last administered on 05/02/19 09:29; Admin Dose 250 MG; Start 05/02/19 at 09:00 Zinc Sulfate (Zinc Sulfate) 220 mg DAILY NGT Last administered on 05/02/19at 09:29; Admin Dose 220 MG; Start 05/02/19 at 09:00 Folic Acid (Folic Acid) 1 mg DAILY NGT Last administered on 05/02/19at 09:29; Admin Dose 1 MG; Start 05/02/19 at 09:00 ELLEN ELIAS May 02, 2019 15:00
[2019-05-02 20:00] VITALS: BP 141/81; PULSE 119; RESP 18
[2019-05-02] MEDS: ACETAMINOPHEN 650MG/20.3ML CUP NGT PRN (21:25)
[2019-05-02 22:00] VITALS: BP 119/71; PULSE 103; RESP 18
[2019-05-03] VITALS (15 sets, daily range): BP systolic 124–150; BP diastolic 60–88; PULSE 80–129; RESP 18–36
[2019-05-03] MEDS: SOD CHLORIDE 0.9% 1,000 ML IV SCH ×2 (00:29→14:39)
[2019-05-03] MEDS: INSULIN ASPART [NOVOLOG] 3 ML PEN SC SCH ×6 (01:00→21:27)
[2019-05-03] MEDS: CEFEPIME 2GM/50 ML (PMX) 50 ML IVPB SCH (05:13)
[2019-05-03] MEDS: ASPIRIN 81 MG TAB NGT SCH (10:34)
[2019-05-03] MEDS: ASCORBIC ACID 250 MG TAB NGT SCH (10:34)
[2019-05-03] MEDS: FOLIC ACID 1 MG TAB NGT SCH (10:34)
[2019-05-03] MEDS: MULTIVITAMINS 30 ML CUP NGT SCH (10:35)
[2019-05-03] MEDS: FAMOTIDINE 20 MG TAB NGT SCH (10:35)
[2019-05-03] MEDS: ZINC SULFATE 220 MG CAP NGT SCH (10:35)
[2019-05-03] MEDS: BALSAM PERU/CASTOR OIL 60 GM TUBE TOP SCH ×2 (10:35→20:59)
[2019-05-03] MEDS: HEPARIN 5,000 UNIT/1 ML VIAL SC SCH ×2 (10:40→21:26)
[2019-05-03] MEDS ORDERED: VANCOMYCIN IV PER PHARMACY XX SCH (11:30)
--- NOTE | 2019-05-03 11:55 | PN ---
Date/Time of Note Date/Time of Note DATE: 05/03/19 TIME: 11:53 Subjective Remains obtunded. Spiked a temperature to 103 F Objective Vitals Vital Signs Date Temp Pulse Resp B/P (MAP) Pulse Ox O2 O2 Flow FiO2 Time Delivery Rate 05/03/19 102.0 115 22 133/78 98 Mask 11:18 (96) 05/03/19 15.0 10:05 04/30/19 30 21:30 Intake and Output 05/02/19 05/02/19 05/03/19 1515:00 23:00 07:00 IntakeIntake Total 50 ml OutputOutput Total 600 ml 500 ml BalanceBalance 50 ml -600 ml -500 ml Bilateral rhonchi Regular rate and rhythm Soft normoactive bowel sounds No edema Unresponsive Results Result Diagram: 05/02/194 05/02/19 2244 Medications Medications Current Medications IV Flush (NS 3 ml) 3 ml PER PROTOCOL IV ; Start 04/28/19 at 11:00 Ondansetron HCl (Zofran Inj) 4 mg Q6H PRN IV NAUSEA/VOMITING; Start 04/28/19 at 11:00 Aspirin (Aspirin) 81 mg DAILY NGT Last administered on 05/03/19at 10:34; Admin Dose 81 MG; Start 04/28/19 at 11:00 Heparin Sodium (Porcine) (Heparin (5000 Units/1ml)) 5,000 unit Q12 SC Last administered on 05/03/19at 10:40; Admin Dose 5,000 UNIT; Start 04/28/19 at 11:00 Insulin Aspart (Novolog Insulin Pen) NOVOLOG *MODERATE* ALGORI... Q4 SC Last administered on 05/03/19at 10:38; Admin Dose 4 UNIT; Start 04/29/19 at 09:00 Miscellaneous Information 1 ea NOTE XX ; Start 04/29/19 at 08:30 Glucose (Glutose) 15 gm Q15M PRN PO DECREASED GLUCOSE; Start 04/29/19 at 08:30 Glucose (Glutose) 22.5 gm Q15M PRN PO DECREASED GLUCOSE; Start 04/29/19 at 08:30 Dextrose (D50w Syringe) 25 ml Q15M PRN IV DECREASED GLUCOSE; Start 04/29/19 at 08:30 Dextrose (D50w Syringe) 50 ml Q15M PRN IV DECREASED GLUCOSE; Start 04/29/19 at 08:30 Glucagon (Glucagen) 1 mg Q15M PRN IM DECREASED GLUCOSE; Start 04/29/19 at 08:30 Glucose (Glutose) 15 gm Q15M PRN BUCCAL DECREASED GLUCOSE; Start 04/29/19 at 08:30 Insulin Glargine (Lantus) 18 units DAILY@0800 SC Last administered on 05/02/19at 11:02; Admin Dose 18 UNITS; Start 05/01/19 at 08:00 Multivitamins (Multivitamin) 30 ml DAILY NGT Last administered on 05/03/19 10:35; Admin Dose 30 ML; Start 05/02/19 at 09:00 Ascorbic Acid (Vitamin C) 250 mg DAILY NGT Last administered on 05/03/19 10:34; Admin Dose 250 MG; Start 05/02/19 at 09:00 Zinc Sulfate (Zinc Sulfate) 220 mg DAILY NGT Last administered on 05/03/19 10:35; Admin Dose 220 MG; Start 05/02/19 at 09:00 Folic Acid (Folic Acid) 1 mg DAILY NGT Last administered on 05/03/19 10:34; Admin Dose 1 MG; Start 05/02/19 at 09:00 Famotidine (Pepcid) 20 mg DAILY NGT Last administered on 05/03/19 10:35; Admin Dose 20 MG; Start 05/03/19 at 09:00 Acetaminophen (Tylenol Liquid) 650 mg Q6 PRN NGT MILD PAIN(1-3)OR ELEVATED TEMP Last administered on 05/02/19at 21:25; Admin Dose 650 MG; Start 05/02/19 at 21:00 Sodium Chloride 1,000 ml @ 75 mls/hr [id number] IV Last administered on 05/03/19 00:29; Admin Dose 75 MLS/HR; Start 05/03/19 at 00:00 Vancomycin HCl (Vanco Iv Per Pharmacy) VANCOMYCIN PER PHARMACY PER PROTOCOL XX ; Start 05/03/19 at 11:30; Status UNV Piperacillin Sod/ Tazobactam Sod 100 ml @ 200 mls/hr Q8 IVPB ; Start 05/03/19 at 13:00 Vancomycin HCl 1.5 gm/Sodium Chloride 250 ml @ 83.333 mls/ hr ONCE ONCE IVPB ; Start 05/03/19 at 14:00; Stop 05/03/19 at 16:59 VTE Prophylaxis Risk score (from [facility])>0 risk: 9 SCD applied (from [facility]): Yes Lines/Catheters IV Catheter Type: Saline Lock Cooper in Place: Yes (Obtunded) Cont'd cooper catheter reason: other (indicate) Assessment/Plan Assessment/Plan 83-year-old male with acute respiratory failure, status post extubation Obtunded state Recent massive stroke with right hemiparesis Advanced Alzheimer's dementia Poor prognosis I attended medical bioethics meeting. All the facts were considered. The committee agreed on DNR CODE STATUS and G-tube placement. Start empiric antibiotic therapy with Vanco and Zosyn Chest x-ray Urinalysis Postpone G-tube placement until infection is controlled ALEXANDRIA WAGNER MD May 03, 2019 11:55
[2019-05-03] MEDS: ACETAMINOPHEN 650MG/20.3ML CUP NGT PRN (12:13)
[2019-05-03] MEDS: INSULIN GLARGINE [LANTus] (100 UNITS/ML) SYG SC SCH (12:17)
[2019-05-03] MEDS: PIPER-TAZO 3.375 GM IV (PMX) 100 ML IVPB SCH ×2 (13:13→20:59)
--- NOTE | 2019-05-03 13:37 | CONS ---
Consult Date/Type/Reason Admit Date/Time Apr 28, 2019 at 05:40 Initial Consult Date 04/28/19 Type of Consult Pulmonary Date/Time of Note DATE: 05/03/19 TIME: 13:36 Subjective More lethargic today on nonrebreather. Objective Vital Signs Date Temp Pulse Resp B/P (MAP) Pulse Ox O2 O2 Flow FiO2 Time Delivery Rate 05/03/19 101.0 13:13 05/03/19 118 13:10 05/03/19 22 133/78 98 Mask 11:18 (96) 05/03/19 15.0 10:05 04/30/19 30 21:30 Intake and Output 05/02/19 05/02/19 05/03/19 1515:00 23:00 07:00 IntakeIntake Total 50 ml OutputOutput Total 600 ml 500 ml BalanceBalance 50 ml -600 ml -500 ml Exam GENERAL: Frail elderly gentleman on nonrebreather VITAL SIGNS: per chart NECK: Supple. No JVD or lymphadenopathy. CARDIAC EXAM: S1, S2. No added sounds or murmurs. CHEST: Diminished air entry bilaterally ABDOMEN: Soft, nontender. No guarding or rebound. EXTREMITIES: No cyanosis, clubbing or edema. NEUROLOGIC: Generalized weakness. No focal deficits. Vent Setting Ventilator Support Mode: CPAP, PS Fraction of Inspired Oxygen pe: 30 Positive End Expiratory Pressu: 5.0 Results/Medications Result Diagram: 05/02/19224305/02/194 Results 24 hrs Laboratory Tests Test 05/02/19 16:51 05/02/19 20:09 05/02/19 22:44 05/03/19 00:38 Bedside Glucose 220 199 162 White Blood Count 14.5 #H Red Blood Count 4.68 L Hemoglobin 13.7 L Hematocrit 43.6 Mean Corpuscular Volume 93.2 Mean Corpuscular 29.3 Hemoglobin Mean Corpuscular 31.4 L Hemoglobin Concent Red Cell Distribution 13.4 Width Platelet Count 136 #L Mean Platelet Volume 13.7 H Immature Granulocytes % 1.700 H Neutrophils % Segmented Neutrophils 72 % (Manual) Band Neutrophils % 13 H (Manual) Lymphocytes % Lymphocytes % (Manual) 5 L Monocytes % Monocytes % (Manual) 9 Eosinophils % Basophils % Myelocytes % (Manual) 1 H Nucleated Red Blood 1 H Cells % Immature Granulocytes # 0.250 H Neutrophils # Neutrophils # (Manual) 10.7 H Band Neutrophils # 1.8 H Lymphocytes (Manual) 0.7 L Lymphocytes # Monocytes # Monocytes # (Manual) 1.3 H Eosinophils # Basophils # Myelocytes # 0.1 H Nucleated Red Blood Cells # Platelet Estimate NORMAL Polychromasia 2+ Poikilocytosis 3+ Echinocytes 1+ Sodium Level 158 H Potassium Level 4.1 Chloride Level 126 H Carbon Dioxide Level 26 Anion Gap 6 Blood Urea Nitrogen 39 #H Creatinine 1.07 Est Glomerular Filtrat Rate mL/min Glucose Level 192 Lactic Acid Level 2.6 *H Calcium Level 9.4 Test 05/03/19 05:04 05/03/19 05:09 05/03/19 10:19 05/03/19 13:15 Bedside Glucose 230 H 189 262 H Prothrombin Time 18.5 H Prothrombin Time Ratio 1.4 INR International 1.53 Normalized Ratio Medications Current Medications IV Flush (NS 3 ml) 3 ml PER PROTOCOL IV ; Start 04/28/19 at 11:00 Ondansetron HCl (Zofran Inj) 4 mg Q6H PRN IV NAUSEA/VOMITING; Start 04/28/19 at 11:00 Aspirin (Aspirin) 81 mg DAILY NGT Last administered on 05/03/19at 10:34; Admin Dose 81 MG; Start 04/28/19 at 11:00 Heparin Sodium (Porcine) (Heparin (5000 Units/1ml)) 5,000 unit Q12 SC Last administered on 05/03/19at 10:40; Admin Dose 5,000 UNIT; Start 04/28/19 at 11:00 Insulin Aspart (Novolog Insulin Pen) NOVOLOG *MODERATE* ALGORI... Q4 SC Last administered on 05/03/19at 13:18; Admin Dose 8 UNIT; Start 04/29/19 at 09:00 Miscellaneous Information 1 ea NOTE XX ; Start 04/29/19 at 08:30 Glucose (Glutose) 15 gm Q15M PRN PO DECREASED GLUCOSE; Start 04/29/19 at 08:30 Glucose (Glutose) 22.5 gm Q15M PRN PO DECREASED GLUCOSE; Start 04/29/19 at 08:30 Dextrose (D50w Syringe) 25 ml Q15M PRN IV DECREASED GLUCOSE; Start 04/29/19 at 08:30 Dextrose (D50w Syringe) 50 ml Q15M PRN IV DECREASED GLUCOSE; Start 04/29/19 at 08:30 Glucagon (Glucagen) 1 mg Q15M PRN IM DECREASED GLUCOSE; Start 04/29/19 at 08:30 Glucose (Glutose) 15 gm Q15M PRN BUCCAL DECREASED GLUCOSE; Start 04/29/19 at 08:30 Insulin Glargine (Lantus) 18 units DAILY@0800 SC Last administered on 05/03/19 12:17; Admin Dose 18 UNITS; Start 05/01/19 at 08:00 Multivitamins (Multivitamin) 30 ml DAILY NGT Last administered on 05/03/19 10:35; Admin Dose 30 ML; Start 05/02/19 at 09:00 Ascorbic Acid (Vitamin C) 250 mg DAILY NGT Last administered on 05/03/19 10:34; Admin Dose 250 MG; Start 05/02/19 at 09:00 Zinc Sulfate (Zinc Sulfate) 220 mg DAILY NGT Last administered on 05/03/19 10:35; Admin Dose 220 MG; Start 05/02/19 at 09:00 Folic Acid (Folic Acid) 1 mg DAILY NGT Last administered on 05/03/19 10:34; Admin Dose 1 MG; Start 05/02/19 at 09:00 Famotidine (Pepcid) 20 mg DAILY NGT Last administered on 05/03/19 10:35; Admin Dose 20 MG; Start 05/03/19 at 09:00 Acetaminophen (Tylenol Liquid) 650 mg Q6 PRN NGT MILD PAIN(1-3)OR ELEVATED TEMP Last administered on 05/03/19 12:13; Admin Dose 650 MG; Start 05/02/19 at 21:00 Sodium Chloride 1,000 ml @ 75 mls/hr [id number] IV Last administered on 05/03/19 00:29; Admin Dose 75 MLS/HR; Start 05/03/19 at 00:00 Vancomycin HCl (Vanco Iv Per Pharmacy) VANCOMYCIN PER PHARMACY PER PROTOCOL XX ; Start 05/03/19 at 11:30 Piperacillin Sod/ Tazobactam Sod 100 ml @ 200 mls/hr Q8 IVPB Last administered on 05/03/19 13:13; Admin Dose 200 MLS/HR; Start 05/03/19 at 13:00 Vancomycin HCl 1.5 gm/Sodium Chloride 250 ml @ 83.333 mls/ hr ONCE ONCE IVPB ; Start 05/03/19 at 14:00; Stop 05/03/19 at 16:59 Vancomycin/Sodium Chloride 250 ml @ 125 mls/hr Q12H IVPB ; Start 05/04/19 at 02:00 Assessment/Plan Hospital Course (Demo Recall) , Impression 1. Acute Respiratory Failure--2/2 central airway obstruction due to choking on food. 2. Encephalopathy--multifactorial. Toxic-metabolic on top of baseline dementia. 3. AG Metabolic acidosis--query mild DKA +/- lactic acidosis 4. KYAW--on CKD, likely pre-renal 5. Hypernatremia 6. Dementia history of CVA RECS: 1. Aspiration precautions nasal cannula O2, worsening hypoxemia. 2. Consider increasing free water. 3. Continue antibiotics per primary team 4. Glycemic management 5. Patient may require a G-tube given his persistent encephalopathy Patient's condition continues to decline palliative care evaluation. May require transition to comfort measures if continues to decline. SHIRA SUE MD, [facility] May 03, 2019 13:37
[2019-05-03] MEDS ORDERED: VANCOMYCIN HCL 1.5 GM in SOD CHLORIDE 0.9% 250 ML IVPB ONE (14:00)
--- NOTE | 2019-05-03 14:14 | QN ---
Documentation Comment Biomedical ethics committee Biomedical ethics committee met today to discuss the case of this gentleman. He is an 83-year-old male with a history of dementia who has recently suffered a significant CVA on top of his premorbid conditions. He has now had an episode of respiratory failure requiring intubation and is now extubated. The primary care team requests consideration of several items. #1 due to his inability to swallow he is an aspiration risk and therefore other is requested on this to give opinion on consent for placement of a percutaneous endoscopic G-tube or PEG tube. Medical indication exists and while this is not an emergency is perfectly appropriate. As such the biomedical ethics committee is strongly in agreement with the primary care team that placement of a PEG tube is appropriate and should proceed. In addition the primary care team request given the patient's overall status a change in CODE STATUS to DNR. This is an underrepresented gentleman and based on the totality of the medical information is the opinion of the biomedical ethics committee is at the primary care team is correct. That further aggressive intervention such as a code would not likely lead to any improvement in the patient's quality of life and actually be a significant detriment to his quality of life i.e. the risks of negative so far outweigh the benefits. As such we are in agreement and the patient should be transitioned to DNR status. Ultimately when the patient was transferred out of the facility would be a legitimate consideration for him to transition to comfort care- palliative care and even hospice care. We are not addressing that as biomedical ethics committee it would be a legitimate option in this individual circumstance Respectfully FRANTZ Coronado MD, MD May 03, 2019 14:14
[2019-05-03] MEDS ORDERED: CEFAZOLIN 1 GM/50 ML (PMX) 50 ML IVPB ONE (16:00)
[2019-05-03] MEDS ORDERED: ALBUTEROL/IPRATROPIUM (NEB) 3 ML AMP HHN STA (19:49)
[2019-05-03] MEDS: ALBUTEROL/IPRATROPIUM (NEB) 3 ML AMP HHN SCH (20:37)
[2019-05-04] VITALS (15 sets, daily range): BP systolic 98–138; BP diastolic 58–70; PULSE 90–122; RESP 18–26
[2019-05-04] MEDS: ALBUTEROL/IPRATROPIUM (NEB) 3 ML AMP HHN SCH ×7 (01:57→21:00)
[2019-05-04] MEDS ORDERED: VANCOMYCIN 750 MG (PMX) 250 ML IVPB SCH (02:00)
[2019-05-04] MEDS: INSULIN ASPART [NOVOLOG] 3 ML PEN SC SCH ×6 (02:12→21:07)
[2019-05-04] MEDS: SOD CHLORIDE 0.9% 1,000 ML IV SCH (02:14)
[2019-05-04] MEDS: PIPER-TAZO 3.375 GM IV (PMX) 100 ML IVPB SCH ×3 (05:30→21:02)
--- NOTE | 2019-05-04 08:34 | PN ---
Date/Time of Note Date/Time of Note DATE: 05/04/19 TIME: 08:32 Subjective Remains obtunded. No respiratory distress Objective Vitals Vital Signs Date Temp Pulse Resp B/P (MAP) Pulse Ox O2 O2 Flow FiO2 Time Delivery Rate 05/04/19 97 65 08:17 05/04/19 109 22 08:16 05/04/19 15.0 07:49 05/04/19 98.6 114/63 07:20 (80) 05/04/19 High Flow 03:27 Intake and Output 05/03/19 05/03/19 05/04/19 1515:00 23:00 07:00 IntakeIntake Total 40 ml 560 ml 1870 ml OutputOutput Total 700 ml 1600 ml BalanceBalance 40 ml -140 ml 270 ml Bilateral rhonchi Regular rate and rhythm Soft normoactive bowel sounds No edema Results Result Diagram: 05/02/194 05/02/194 Medications Medications Current Medications IV Flush (NS 3 ml) 3 ml PER PROTOCOL IV ; Start 04/28/19 at 11:00 Ondansetron HCl (Zofran Inj) 4 mg Q6H PRN IV NAUSEA/VOMITING; Start 04/28/19 at 11:00 Aspirin (Aspirin) 81 mg DAILY NGT Last administered on 05/03/19at 10:34; Admin Dose 81 MG; Start 04/28/19 at 11:00 Heparin Sodium (Porcine) (Heparin (5000 Units/1ml)) 5,000 unit Q12 SC Last administered on 05/03/19at 21:26; Admin Dose 5,000 UNIT; Start 04/28/19 at 11:00 Insulin Aspart (Novolog Insulin Pen) NOVOLOG *MODERATE* ALGORI... Q4 SC Last administered on 05/04/19at 02:12; Admin Dose 4 UNIT; Start 04/29/19 at 09:00 Miscellaneous Information 1 ea NOTE XX ; Start 04/29/19 at 08:30 Glucose (Glutose) 15 gm Q15M PRN PO DECREASED GLUCOSE; Start 04/29/19 at 08:30 Glucose (Glutose) 22.5 gm Q15M PRN PO DECREASED GLUCOSE; Start 04/29/19 at 08:30 Dextrose (D50w Syringe) 25 ml Q15M PRN IV DECREASED GLUCOSE; Start 04/29/19 at 08:30 Dextrose (D50w Syringe) 50 ml Q15M PRN IV DECREASED GLUCOSE; Start 04/29/19 at 08:30 Glucagon (Glucagen) 1 mg Q15M PRN IM DECREASED GLUCOSE; Start 04/29/19 at 08:30 Glucose (Glutose) 15 gm Q15M PRN BUCCAL DECREASED GLUCOSE; Start 04/29/19 at 08:30 Insulin Glargine (Lantus) 18 units DAILY@0800 SC Last administered on 05/03/19 12:17; Admin Dose 18 UNITS; Start 05/01/19 at 08:00 Multivitamins (Multivitamin) 30 ml DAILY NGT Last administered on 05/03/19 10:35; Admin Dose 30 ML; Start 05/02/19 at 09:00 Ascorbic Acid (Vitamin C) 250 mg DAILY NGT Last administered on 05/03/19 10:34; Admin Dose 250 MG; Start 05/02/19 at 09:00 Zinc Sulfate (Zinc Sulfate) 220 mg DAILY NGT Last administered on 05/03/19 10:35; Admin Dose 220 MG; Start 05/02/19 at 09:00 Folic Acid (Folic Acid) 1 mg DAILY NGT Last administered on 05/03/19 10:34; Admin Dose 1 MG; Start 05/02/19 at 09:00 Famotidine (Pepcid) 20 mg DAILY NGT Last administered on 05/03/19 10:35; Admin Dose 20 MG; Start 05/03/19 at 09:00 Acetaminophen (Tylenol Liquid) 650 mg Q6 PRN NGT MILD PAIN(1-3)OR ELEVATED TEMP Last administered on 05/03/19 12:13; Admin Dose 650 MG; Start 05/02/19 at 21:00 Sodium Chloride 1,000 ml @ 75 mls/hr [id number] IV Last administered on 05/03/19 14:39; Admin Dose 75 MLS/HR; Start 05/03/19 at 00:00 Vancomycin HCl (Vanco Iv Per Pharmacy) VANCOMYCIN PER PHARMACY PER PROTOCOL XX ; Start 05/03/19 at 11:30 Piperacillin Sod/ Tazobactam Sod 100 ml @ 200 mls/hr Q8 IVPB Last administered on 05/04/19 05:30; Admin Dose 200 MLS/HR; Start 05/03/19 at 13:00 Vancomycin/Sodium Chloride 250 ml @ 125 mls/hr Q12H IVPB Last administered on 05/04/19at 02:14; Admin Dose 125 MLS/HR; Start 05/04/19 at 02:00 Albuterol/ Ipratropium (Duoneb) 3 ml Q4H RESP THERAPY HHN Last administered on 05/04/19at 08:16; Admin Dose 3 ML; Start 05/03/19 at 21:00 VTE Prophylaxis Risk score (from [facility] [place])>0 risk: 4 SCD applied (from Ns): Yes Lines/Catheters IV Catheter Type: Saline Lock Hugo in Place: No Assessment/Plan Assessment/Plan Hospital-acquired pneumonia Recent CVA Advanced Alzheimer's dementia Obtunded state DNR CODE STATUS Continue Zosyn and vancomycin Await G-tube placement ALEXANDRIA WAGNER MD May 04, 2019 08:34
[2019-05-04] MEDS: MULTIVITAMINS 30 ML CUP NGT SCH (08:52)
[2019-05-04] MEDS: FOLIC ACID 1 MG TAB NGT SCH (08:52)
[2019-05-04] MEDS: ASPIRIN 81 MG TAB NGT SCH (08:52)
[2019-05-04] MEDS: ASCORBIC ACID 250 MG TAB NGT SCH (08:52)
[2019-05-04] MEDS: FAMOTIDINE 20 MG TAB NGT SCH (08:52)
[2019-05-04] MEDS: BALSAM PERU/CASTOR OIL 60 GM TUBE TOP SCH ×4 (08:52→21:09)
[2019-05-04] MEDS: ZINC SULFATE 220 MG CAP NGT SCH (08:52)
[2019-05-04] MEDS: HEPARIN 5,000 UNIT/1 ML VIAL SC SCH ×2 (09:07→21:00)
[2019-05-04] MEDS: INSULIN GLARGINE [LANTus] (100 UNITS/ML) SYG SC SCH (09:07)
[2019-05-04] MEDS ORDERED: POTASSIUM CHLORIDE 20 MEQ POWDER FOR ORAL SOLN NGT ONE ×2 (10:00→21:16)
[2019-05-04] MEDS: DEXTROSE 5% 1,000 ML IV SCH ×2 (10:25→20:00)
--- NOTE | 2019-05-04 10:37 | CONS ---
Assessment/Plan Assessment/Plan Assessment/Plan (Daily) Assessment and recommendations; 1. Patient with history of advanced dementia admitted with bilateral pneumonia, currently on appropriate antimicrobial regimen. 2. Dysphagia due to advanced dementia. 3. Hypernatremia. 4. Persistent severe hypoxemia. 5. Some element of CHF as well. Continue current supportive care. Add free water via NG tube to 50 mL every 6 hours. Monitor serum sodium level. Prognosis is very poor. Consultation Date/Type/Reason Admit Date/Time Apr 28, 2019 at 05:40 Initial Consult Date 04/28/19 Type of Consult Pulmonary Patient's condition is tenuous at best. Exhibiting profound encephalopathy. Date/Time of Note DATE: 05/04/19 TIME: 10:35 24 HR Interval Summary Free Text/Dictation Patient's condition is poor. On high flow nasal cannula at 65% FiO2. General exam; elderly male, noncommunicative. Currently no distress. Patient is unresponsive as well. Exam/Review of Systems Exam Vitals Vital Signs Date Temp Pulse Resp B/P (MAP) Pulse Ox O2 O2 Flow FiO2 Time Delivery Rate 05/04/19 97 65 08:17 05/04/19 109 22 08:16 05/04/19 15.0 07:49 05/04/19 98.6 114/63 07:20 (80) 05/04/19 High Flow 03:27 Intake and Output 05/03/19 05/03/19 05/04/19 1515:00 23:00 07:00 IntakeIntake Total 40 ml 560 ml 1870 ml OutputOutput Total 700 ml 1600 ml BalanceBalance 40 ml -140 ml 270 ml Exam H EENT exam; supple neck, no JVD. No lymphadenopathy. Midline trachea. On high flow nasal cannula. Nasogastric tube in place. Patient has triple carious teeth. Chest exam; diminished breath sounds bilaterally. S1-S2 audible, no murmurs. Regular rhythm. Abdomen exam; soft, scaphoid. No organomegaly. Bowel sounds audible. Extremity exam; peripheral edema clubbing. THREAD WINDER exam; patient remains unresponsive. Results Result Diagram: 05/04/19 0756 05/04/19 0756 Results 24hrs Laboratory Tests Test 05/03/19 13:15 05/03/19 15:00 05/03/19 16:59 05/03/19 19:49 Bedside Glucose 262 H 202 Urine Color HERIBERTO Urine Clarity CLOUDY A Urine pH 5.0 Urine Specific 1.029 [place] Urine Ketones NEGATIVE Urine Nitrite NEGATIVE Urine Bilirubin NEGATIVE Urine Urobilinogen NEGATIVE Urine Leukocyte NEGATIVE Esterase Urine Microscopic 5 RBC Urine Microscopic 8 H WBC Urine Granular MODERATE Casts Urine Hemoglobin 3+ H Urine Glucose 3+ H Urine Total 2+ H Protein Blood Gas Specimen Blood arterial Source Arterial Blood 05/04/2019 12:08:26 Date Drawn AM Arterial Blood pH 7.491 H (Temp corrected) Arterial Blood 29.8 L pCO2 (Temp correct) Arterial Blood pO2 133.3 H (Temp corrected) Arterial Blood 22.3 HCO3 Arterial Blood 0 Base Excess Arterial Blood 98.6 Oxygen Saturation Ashok Test ACCEPTAB Arterial Blood Gas Right Radial Puncture Site Arterial 0.3 Blood Carboxyhemog lobin Arterial Blood 0.3 Methemoglobin Blood Gas A-a O2 549.9 H Differential Oxyhemoglobin 98.0 Percent Blood Gas 37.0 Temperature Blood Gas Actual 28 Respiration Rate Blood Gas Modality HFNC FiO2 100.0 Blood Gas Notified NICHOLAS SKINNER Whom Blood Gas Notified 05/04/2019 12:20:04 Time AM Test 05/03/19 20:57 05/04/19 02:05 05/04/19 05:33 05/04/19 07:00 Bedside Glucose 233 H 219 146 Blood Gas Specimen Blood arterial Source Arterial Blood 05/04/2019 9:30:06 Date Drawn AM Arterial Blood pH 7.497 H (Temp corrected) Arterial Blood 27.4 L pCO2 (Temp correct) Arterial Blood pO2 85.5 (Temp corrected) Arterial Blood 20.7 L HCO3 Arterial Blood -1.2 Base Excess Arterial Blood 96.6 Oxygen Saturation Ashok Test ACCEPTAB Arterial Blood Gas Right Radial Puncture Site Arterial 0.3 Blood Carboxyhemog lobin Arterial Blood 0.3 Methemoglobin Blood Gas A-a O2 348.2 H Differential Oxyhemoglobin 96.0 Percent Blood Gas 37.0 Temperature Blood Gas Modality HFNC FiO2 65.0 Blood Gas Notified ab Whom Blood Gas Notified 05/04/2019 9:36:09 Time AM Test 05/04/19 07:56 05/04/19 08:51 White Blood Count 16.6 H Red Blood Count 4.59 L Hemoglobin 13.4 L Hematocrit 42.5 Mean Corpuscular 92.6 Volume Mean Corpuscular 29.2 Hemoglobin Mean Corpuscular 31.5 L Hemoglobin Concent Red Cell 14.2 Distribution Width Platelet Count 126 L Mean Platelet 14.1 H Volume Immature 1.100 H Granulocytes % Neutrophils % 90.1 H Lymphocytes % 5.7 L Monocytes % 2.5 Eosinophils % 0.0 Basophils % 0.6 Nucleated Red 0.3 H Blood Cells % Immature 0.190 H Granulocytes # Neutrophils # 14.9 H Lymphocytes # 1.0 Monocytes # 0.4 Eosinophils # 0.0 Basophils # 0.1 Nucleated Red 0.1 H Blood Cells # Sodium Level 165 *H Potassium Level 3.1 L Chloride Level 132 H Carbon Dioxide 22 Level Anion Gap 11 Blood Urea 52 H Nitrogen Creatinine 1.42 H Est Glomerular Filtrat Rate mL/min Glucose Level 194 Calcium Level 8.1 L Bedside Glucose 168 Medications Medication Current Medications IV Flush (NS 3 ml) 3 ml PER PROTOCOL IV ; Start 04/28/19 at 11:00 Ondansetron HCl (Zofran Inj) 4 mg Q6H PRN IV NAUSEA/VOMITING; Start 04/28/19 at 11:00 Aspirin (Aspirin) 81 mg DAILY NGT Last administered on 05/04/19at 08:52; Admin Dose 81 MG; Start 04/28/19 at 11:00 Heparin Sodium (Porcine) (Heparin (5000 Units/1ml)) 5,000 unit Q12 SC Last administered on 05/04/19at 09:07; Admin Dose 5,000 UNIT; Start 04/28/19 at 11:00 Insulin Aspart (Novolog Insulin Pen) NOVOLOG *MODERATE* ALGORI... Q4 SC Last administered on 05/04/19at 09:07; Admin Dose 2 UNIT; Start 04/29/19 at 09:00 Miscellaneous Information 1 ea NOTE XX ; Start 04/29/19 at 08:30 Glucose (Glutose) 15 gm Q15M PRN PO DECREASED GLUCOSE; Start 04/29/19 at 08:30 Glucose (Glutose) 22.5 gm Q15M PRN PO DECREASED GLUCOSE; Start 04/29/19 at 08:30 Dextrose (D50w Syringe) 25 ml Q15M PRN IV DECREASED GLUCOSE; Start 04/29/19 at 08:30 Dextrose (D50w Syringe) 50 ml Q15M PRN IV DECREASED GLUCOSE; Start 04/29/19 at 08:30 Glucagon (Glucagen) 1 mg Q15M PRN IM DECREASED GLUCOSE; Start 04/29/19 at 08:30 Glucose (Glutose) 15 gm Q15M PRN BUCCAL DECREASED GLUCOSE; Start 04/29/19 at 08:30 Insulin Glargine (Lantus) 18 units DAILY@0800 SC Last administered on 05/04/19 09:07; Admin Dose 18 UNITS; Start 05/01/19 at 08:00 Multivitamins (Multivitamin) 30 ml DAILY NGT Last administered on 05/04/19 08:52; Admin Dose 30 ML; Start 05/02/19 at 09:00 Ascorbic Acid (Vitamin C) 250 mg DAILY NGT Last administered on 05/04/19 08:52; Admin Dose 250 MG; Start 05/02/19 at 09:00 Zinc Sulfate (Zinc Sulfate) 220 mg DAILY NGT Last administered on 05/04/19 08:52; Admin Dose 220 MG; Start 05/02/19 at 09:00 Folic Acid (Folic Acid) 1 mg DAILY NGT Last administered on 05/04/19 08:52; Admin Dose 1 MG; Start 05/02/19 at 09:00 Famotidine (Pepcid) 20 mg DAILY NGT Last administered on 05/04/19 08:52; Admin Dose 20 MG; Start 05/03/19 at 09:00 Acetaminophen (Tylenol Liquid) 650 mg Q6 PRN NGT MILD PAIN(1-3)OR ELEVATED TEMP Last administered on 05/03/19 12:13; Admin Dose 650 MG; Start 05/02/19 at 21:00 Vancomycin HCl (Vanco Iv Per Pharmacy) VANCOMYCIN PER PHARMACY PER PROTOCOL XX ; Start 05/03/19 at 11:30 Piperacillin Sod/ Tazobactam Sod 100 ml @ 200 mls/hr Q8 IVPB Last administered on 05/04/19 05:30; Admin Dose 200 MLS/HR; Start 05/03/19 at 13:00 Vancomycin/Sodium Chloride 250 ml @ 125 mls/hr Q12H IVPB Last administered on 05/04/19 02:14; Admin Dose 125 MLS/HR; Start 05/04/19 at 02:00 Albuterol/ Ipratropium (Duoneb) 3 ml Q4H RESP THERAPY HHN Last administered on 6/8/19at 08:16; Admin Dose 3 ML; Start 05/03/19 at 21:00 Dextrose 1,000 ml @ 100 mls/hr Q10H IV Last administered on 05/04/19at 10:25; Admin Dose 100 MLS/HR; Start 05/04/19 at 10:00; Stop 05/05/19 at 05:59 RUDDY ORTEGA May 04, 2019 10:37
[2019-05-04] MEDS: COLLAGENASE 5 GM (UD JAR) TOP SCH ×2 (13:13→20:59)
[2019-05-04] MEDS: ACETAMINOPHEN 650MG/20.3ML CUP NGT PRN (17:18)
[2019-05-04] MEDS: morphine (DRIP) 100 MG/100 ML 100 ML IV SCH (23:58)
[2019-05-05] MEDS: ALBUTEROL/IPRATROPIUM (NEB) 3 ML AMP HHN SCH ×6 (00:56→20:57)
[2019-05-05] MEDS: DEXTROSE 5% 1,000 ML IV SCH ×4 (01:15→22:50)
[2019-05-05] MEDS: VANCOMYCIN 1 GM 250 ML IVPB SCH (02:29)
[2019-05-05] MEDS: PIPER-TAZO 3.375 GM IV (PMX) 100 ML IVPB SCH ×3 (06:06→21:40)
[2019-05-05 08:02] VITALS: BP 109/60; PULSE 89; RESP 20
--- NOTE | 2019-05-05 08:53 | PN ---
Date/Time of Note Date/Time of Note DATE: 05/05/19 TIME: 08:50 Subjective Patient remains completely unresponsive. He was in respiratory distress the night prior but appears comfortable. 100% nonrebreather Objective Vitals Vital Signs Date Temp Pulse Resp B/P (MAP) Pulse Ox O2 O2 Flow FiO2 Time Delivery Rate 05/05/19 98.0 89 20 109/60 95 Non 08:02 (76) Rebreather 05/05/19 15.0 100 05:15 Intake and Output 05/04/19 05/04/19 05/05/19 1515:00 23:00 07:00 IntakeIntake Total 600 ml 1110 ml 834 ml OutputOutput Total 950 ml 800 ml BalanceBalance 600 ml 160 ml 34 ml Bilateral rhonchi and rales Regular rate and rhythm Soft normoactive bowel sounds Mild edema Results Result Diagram: 05/04/19 0756 05/04/19 0756 Medications Medications Current Medications IV Flush (NS 3 ml) 3 ml PER PROTOCOL IV Last administered on 05/05/19at 02:30; Admin Dose 3 ML; Start 04/28/19 at 11:00 Ondansetron HCl (Zofran Inj) 4 mg Q6H PRN IV NAUSEA/VOMITING; Start 04/28/19 at 11:00 Aspirin (Aspirin) 81 mg DAILY NGT Last administered on 05/04/19at 08:52; Admin Dose 81 MG; Start 04/28/19 at 11:00 Heparin Sodium (Porcine) (Heparin (5000 Units/1ml)) 5,000 unit Q12 SC Last administered on 05/04/19at 09:07; Admin Dose 5,000 UNIT; Start 04/28/19 at 11:00 Miscellaneous Information 1 ea NOTE XX ; Start 04/29/19 at 08:30 Multivitamins (Multivitamin) 30 ml DAILY NGT Last administered on 05/04/19at 08:52; Admin Dose 30 ML; Start 05/02/19 at 09:00 Ascorbic Acid (Vitamin C) 250 mg DAILY NGT Last administered on 05/04/19at 08:52; Admin Dose 250 MG; Start 05/02/19 at 09:00 Zinc Sulfate (Zinc Sulfate) 220 mg DAILY NGT Last administered on 05/04/19at 08:52; Admin Dose 220 MG; Start 05/02/19 at 09:00 Folic Acid (Folic Acid) 1 mg DAILY NGT Last administered on 05/04/19 08:52; Admin Dose 1 MG; Start 05/02/19 at 09:00 Famotidine (Pepcid) 20 mg DAILY NGT Last administered on 05/04/19 08:52; Admin Dose 20 MG; Start 05/03/19 at 09:00 Acetaminophen (Tylenol Liquid) 650 mg Q6 PRN NGT MILD PAIN(1-3)OR ELEVATED TEMP Last administered on 05/04/19 17:18; Admin Dose 650 MG; Start 05/02/19 at 21:00 Vancomycin HCl (Vanco Iv Per Pharmacy) VANCOMYCIN PER PHARMACY PER PROTOCOL XX ; Start 05/03/19 at 11:30 Piperacillin Sod/ Tazobactam Sod 100 ml @ 200 mls/hr Q8 IVPB Last administered on 05/05/19 06:06; Admin Dose 200 MLS/HR; Start 05/03/19 at 13:00 Albuterol/ Ipratropium (Duoneb) 3 ml Q4H RESP THERAPY HHN Last administered on 05/05/19 05:50; Admin Dose 3 ML; Start 05/03/19 at 21:00 Collagenase (Santyl) 1 applic BID TOP Last administered on 05/04/19 20:59; Admin Dose 1 APPLIC; Start 05/04/19 at 12:00 Vancomycin HCl 250 ml @ 125 mls/hr Q24H IVPB Last administered on 05/05/19 02:29; Admin Dose 125 MLS/HR; Start 05/05/19 at 02:00 Morphine Sulfate/ Sodium Chloride 100 ml @ 2 mls/hr IV IV Last administered on 05/04/19 23:58; Admin Dose 2 MLS/HR; Start 05/04/19 at 23:00 VTE Prophylaxis Risk score (from Nsg)>0 risk: 4 SCD applied (from Nsg): Yes Lines/Catheters IV Catheter Type: Saline Lock Hugo in Place: No Assessment/Plan Assessment/Plan 83-year-old male with bilateral aspiration pneumonia History of recent CVA Obtunded state Advanced Alzheimer's dementia Stage III chronic kidney disease DNR CODE STATUS Continue IV vancomycin and Zosyn Continue nebulizer therapy Hold NG tube feeding Morphine ALEXANDRIA WAGNER MD May 05, 2019 08:53
[2019-05-05] MEDS: MULTIVITAMINS 30 ML CUP NGT SCH ×2 (09:00→13:10)
[2019-05-05] MEDS: FAMOTIDINE 20 MG TAB NGT SCH (09:00)
[2019-05-05] MEDS: ZINC SULFATE 220 MG CAP NGT SCH (09:00)
[2019-05-05] MEDS: BALSAM PERU/CASTOR OIL 60 GM TUBE TOP SCH ×5 (09:00→21:40)
[2019-05-05] MEDS: COLLAGENASE 5 GM (UD JAR) TOP SCH ×2 (09:00→21:39)
[2019-05-05] MEDS: ASCORBIC ACID 250 MG TAB NGT SCH (09:00)
[2019-05-05] MEDS: ASPIRIN 81 MG TAB NGT SCH (09:00)
[2019-05-05] MEDS: FOLIC ACID 1 MG TAB NGT SCH (09:00)
[2019-05-05] MEDS: HEPARIN 5,000 UNIT/1 ML VIAL SC SCH ×2 (09:01→21:42)
[2019-05-05 14:23] VITALS: BP 120/64; PULSE 82; RESP 20
--- NOTE | 2019-05-05 17:07 | PN ---
Date/Time of Note Date/Time of Note DATE: 05/05/19 TIME: 17:01 Assessment/Plan VTE Prophylaxis Risk [place] [facility] [place] risk: 4 SCD applied (from [facility] [place] Yes Pharmacological prophylaxis: heparin Lines/Catheters IV Catheter Type (from [facility]): Saline Lock Urinary Cath still in place: No Assessment/Plan Assessment/Plan Assessment: Dysphagia Acute respiratory failure status post extubation Aspiration pneumonia Sepsis Recent CVA with right hemiparesis Obtunded state Advanced Alzheimer's dementia Hypertension DM Plan: Patient is now minimally responsive. Continue antibiotics and respiratory support. Will hold off on PEG tube placement until infection improves, however prognosis remains poor. Patient seen in collaboration with Dr. Nuñez Subjective: Resting in bed, appears comfortable, minimally responsive, opens eyes to painful stimuli. NG tube in place to gravity. On non rebreather mask. Result Diagram: 05/04/19 0756 05/04/19 0756 Results 24hrs Laboratory Tests Test 05/04/19 17:17 05/04/19 20:59 05/04/19 21:32 05/04/19 21:33 Bedside Glucose 237 H 206 Ammonia 18 B-Type Natriuretic 870 H Peptide Test 05/04/19 21:47 Blood Gas Specimen Blood arterial Source Arterial Blood 05/04/2019 9:44:04 Date Drawn PM Arterial Blood pH 7.474 H (Temp corrected) Arterial Blood 29.9 L pCO2 (Temp correct) Arterial Blood pO2 33.6 *L (Temp corrected) Arterial Blood 21.5 L HCO3 Arterial Blood -1.0 Base Excess Arterial Blood 68.9 L Oxygen Saturation Ashok Test ACCEPTAB Arterial Blood Gas Right Radial Puncture Site Arterial 0 Blood Carboxyhemog lobin Arterial Blood 0.1 Methemoglobin Blood Gas A-a O2 649.5 H Differential Oxyhemoglobin 68.8 L Percent Blood Gas 37.0 Temperature Blood Gas Modality MASK - NRB FiO2 100.0 Blood Gas Critical Carmelo HATFIELD RN Value Read Back Blood Gas Notified LW Whom Blood Gas Notified 05/04/2019 9:54:55 Time PM Exam/Review of Systems Exam Vitals Vital Signs Date Temp Pulse Resp B/P (MAP) Pulse Ox O2 O2 Flow FiO2 Time Delivery Rate 05/05/19 96 16 99 Non 15.0 100 16:21 Rebreather Mask 05/05/19 98.1 120/64 14:23 (82) Intake and Output 05/04/19 05/04/19 05/05/19 1515:00 23:00 07:00 IntakeIntake Total 600 ml 1110 ml 834 ml OutputOutput Total 950 ml 800 ml BalanceBalance 600 ml 160 ml 34 ml Constitutional: frail, other (lethargic) Psych: confusion Head: normocephalic Eyes: nl conjunctiva ENMT: nl external ears & nose, nl lips & teeth Neck: supple Respiratory: diminished breath sounds, other (on nonrebreather mask) Cardiovascular: regular rate and rhythm Gastrointestinal: soft Musculoskeletal: nl extremities to inspection Extremities: normal pulses Neurological: confused, lethargic Skin: nl turgor Results Results 24hrs Laboratory Tests Test 05/04/19 17:17 05/04/19 20:59 05/04/19 21:32 05/04/19 21:33 Bedside Glucose 237 H 206 Ammonia 18 B-Type Natriuretic 870 H Peptide Test 05/04/19 21:47 Blood Gas Specimen Blood arterial Source Arterial Blood 05/04/2019 9:44:04 Date Drawn PM Arterial Blood pH 7.474 H (Temp corrected) Arterial Blood 29.9 L pCO2 (Temp correct) Arterial Blood pO2 33.6 *L (Temp corrected) Arterial Blood 21.5 L HCO3 Arterial Blood -1.0 Base Excess Arterial Blood 68.9 L Oxygen Saturation Ashok Test ACCEPTAB Arterial Blood Gas Right Radial Puncture Site Arterial 0 Blood Carboxyhemog lobin Arterial Blood 0.1 Methemoglobin Blood Gas A-a O2 649.5 H Differential Oxyhemoglobin 68.8 L Percent Blood Gas 37.0 Temperature Blood Gas Modality MASK - NRB FiO2 100.0 Blood Gas Critical Carmelo HATFIELD RN Value Read Back Blood Gas Notified LW Whom Blood Gas Notified 05/04/2019 9:54:55 Time PM Medications Medication Current Medications IV Flush (NS 3 ml) 3 ml PER PROTOCOL IV Last administered on 05/05/19at 02:30; Admin Dose 3 ML; Start 04/28/19 at 11:00 Ondansetron HCl (Zofran Inj) 4 mg Q6H PRN IV NAUSEA/VOMITING; Start 04/28/19 at 11:00 Aspirin (Aspirin) 81 mg DAILY NGT Last administered on 05/05/19at 09:00; Admin Dose 81 MG; Start 04/28/19 at 11:00 Heparin Sodium (Porcine) (Heparin (5000 Units/1ml)) 5,000 unit Q12 SC Last ad ministered on 05/05/19 09:01; Admin Dose 5,000 UNIT; Start 04/28/19 at 11:00 Miscellaneous Information 1 ea NOTE XX ; Start 04/29/19 at 08:30 Multivitamins (Multivitamin) 30 ml DAILY NGT Last administered on 05/05/19 13:10; Admin Dose 30 ML; Start 05/02/19 at 09:00 Ascorbic Acid (Vitamin C) 250 mg DAILY NGT Last administered on 05/05/19 09:00; Admin Dose 250 MG; Start 05/02/19 at 09:00 Zinc Sulfate (Zinc Sulfate) 220 mg DAILY NGT Last administered on 05/05/19 09:00; Admin Dose 220 MG; Start 05/02/19 at 09:00 Folic Acid (Folic Acid) 1 mg DAILY NGT Last administered on 05/05/19 09:00; Admin Dose 1 MG; Start 05/02/19 at 09:00 Famotidine (Pepcid) 20 mg DAILY NGT Last administered on 05/05/19 09:00; Admin Dose 20 MG; Start 05/03/19 at 09:00 Acetaminophen (Tylenol Liquid) 650 mg Q6 PRN NGT MILD PAIN(1-3)OR ELEVATED TEMP Last administered on 05/04/19 17:18; Admin Dose 650 MG; Start 05/02/19 at 21:00 Vancomycin HCl (Vanco Iv Per Pharmacy) VANCOMYCIN PER PHARMACY PER PROTOCOL XX ; Start 05/03/19 at 11:30 Piperacillin Sod/ Tazobactam Sod 100 ml @ 200 mls/hr Q8 IVPB Last administered on 05/05/19 13:11; Admin Dose 200 MLS/HR; Start 05/03/19 at 13:00 Albuterol/ Ipratropium (Duoneb) 3 ml Q4H RESP THERAPY HHN Last administered on 05/05/19 16:21; Admin Dose 3 ML; Start 05/03/19 at 21:00 Collagenase (Santyl) 1 applic BID TOP Last administered on 05/05/19 09:00; Admin Dose 1 APPLIC; Start 05/04/19 at 12:00 Vancomycin HCl 250 ml @ 125 mls/hr Q24H IVPB Last administered on 05/05/19at 02:29; Admin Dose 125 MLS/HR; Start 05/05/19 at 02:00 Morphine Sulfate/ Sodium Chloride 100 ml @ 2 mls/hr IV IV Last administered on 05/04/19at 23:58; Admin Dose 2 MLS/HR; Start 05/04/19 at 23:00 Dextrose 1,000 ml @ 75 mls/hr [id number] IV Last administered on 05/05/19at 13:11; Admin Dose 75 MLS/HR; Start 05/05/19 at 09:30 Miscellaneous Information (*Rx Drug Level Order Reminder*) VANCO TROUGH @ 0,100 ON... 0100 ONCE XX ; Start 05/06/19 at 01:00; Stop 05/06/19 at 01:01 BITA BOO NP May 05, 2019 17:06
[2019-05-05 20:38] VITALS: BP 130/65; PULSE 75; RESP 16
[2019-05-06] MEDS: ALBUTEROL/IPRATROPIUM (NEB) 3 ML AMP HHN SCH ×6 (01:32→20:21)
[2019-05-06] MEDS: VANCOMYCIN 1 GM 250 ML IVPB SCH (02:13)
[2019-05-06] MEDS: DEXTROSE 5% 1,000 ML IV SCH ×2 (02:20→20:51)
[2019-05-06 03:10] VITALS: BP 130/70; PULSE 85; RESP 12
[2019-05-06] MEDS: PIPER-TAZO 3.375 GM IV (PMX) 100 ML IVPB SCH ×3 (06:08→22:27)
[2019-05-06 07:33] VITALS: BP 117/90; PULSE 57; RESP 19
[2019-05-06] MEDS: HEPARIN 5,000 UNIT/1 ML VIAL SC SCH (09:00)
--- NOTE | 2019-05-06 09:35 | PN ---
Date/Time of Note Date/Time of Note DATE: 05/06/19 TIME: 09:32 Subjective Remains completely unresponsive. No respiratory distress. 100% nonrebreather Objective Vitals Vital Signs Date Temp Pulse Resp B/P (MAP) Pulse Ox O2 O2 Flow FiO2 Time Delivery Rate 05/06/19 98.3 57 19 117/90 99 Room Air 07:33 (99) 05/06/19 15.0 100 05:34 Intake and Output 05/05/19 05/05/19 05/06/19 1515:00 23:00 07:00 IntakeIntake Total 116 ml 416 ml 491 ml OutputOutput Total 150 ml 1650 ml BalanceBalance 116 ml 266 ml -1159 ml Bilateral rhonchi Regular rate and rhythm Soft normoactive bowel sounds Mild edema Results Result Diagram: 05/04/19 0756 05/06/19 0435 Medications Medications Current Medications IV Flush (NS 3 ml) 3 ml PER PROTOCOL IV Last administered on 05/05/19at 02:30; Admin Dose 3 ML; Start 04/28/19 at 11:00 Ondansetron HCl (Zofran Inj) 4 mg Q6H PRN IV NAUSEA/VOMITING; Start 04/28/19 at 11:00 Aspirin (Aspirin) 81 mg DAILY NGT Last administered on 05/05/19at 09:00; Admin Dose 81 MG; Start 04/28/19 at 11:00 Heparin Sodium (Porcine) (Heparin (5000 Units/1ml)) 5,000 unit Q12 SC Last a dministered on 05/05/19at 21:42; Admin Dose 5,000 UNIT; Start 04/28/19 at 11:00 Miscellaneous Information 1 ea NOTE XX ; Start 04/29/19 at 08:30 Multivitamins (Multivitamin) 30 ml DAILY NGT Last administered on 05/05/19at 13:10; Admin Dose 30 ML; Start 05/02/19 at 09:00 Ascorbic Acid (Vitamin C) 250 mg DAILY NGT Last administered on 05/05/19at 09:00; Admin Dose 250 MG; Start 05/02/19 at 09:00 Zinc Sulfate (Zinc Sulfate) 220 mg DAILY NGT Last administered on 05/05/19at 09:00; Admin Dose 220 MG; Start 05/02/19 at 09:00 Folic Acid (Folic Acid) 1 mg DAILY NGT Last administered on 05/05/19 09:00; Admin Dose 1 MG; Start 05/02/19 at 09:00 Famotidine (Pepcid) 20 mg DAILY NGT Last administered on 05/05/19 09:00; Admin Dose 20 MG; Start 05/03/19 at 09:00 Acetaminophen (Tylenol Liquid) 650 mg Q6 PRN NGT MILD PAIN(1-3)OR ELEVATED TEMP Last administered on 05/04/19 17:18; Admin Dose 650 MG; Start 05/02/19 at 21:00 Vancomycin HCl (Vanco Iv Per Pharmacy) VANCOMYCIN PER PHARMACY PER PROTOCOL XX ; Start 05/03/19 at 11:30 Piperacillin Sod/ Tazobactam Sod 100 ml @ 200 mls/hr Q8 IVPB Last administered on 05/06/19 06:08; Admin Dose 200 MLS/HR; Start 05/03/19 at 13:00 Albuterol/ Ipratropium (Duoneb) 3 ml Q4H RESP THERAPY HHN Last administered on 05/06/19 05:31; Admin Dose 3 ML; Start 05/03/19 at 21:00 Collagenase (Santyl) 1 applic BID TOP Last administered on 05/05/19 21:39; Admin Dose 1 APPLIC; Start 05/04/19 at 12:00 Morphine Sulfate/ Sodium Chloride 100 ml @ 2 mls/hr IV IV Last administered on 05/04/19 23:58; Admin Dose 2 MLS/HR; Start 05/04/19 at 23:00 Dextrose 1,000 ml @ 75 mls/hr [id number] IV Last administered on 05/06/19 02:20; Admin Dose 75 MLS/HR; Start 05/05/19 at 09:30 Vancomycin HCl 1.25 gm/Sodium Chloride 250 ml @ 83.333 mls/ hr Q24H IVPB ; Start 05/06/19 at 23:00 VTE Prophylaxis Risk score (from Nsg)>0 risk: 4 SCD applied (from Nsg): Yes Lines/Catheters IV Catheter Type: Saline Lock Cooper in Place: Yes Cont'd cooper catheter reason: terminal illness/intractable pain Assessment/Plan Assessment/Plan Bilateral aspiration pneumonia Acute respiratory failure Stage III chronic kidney disease Recent stroke Dysphagia Obtunded state Advanced Alzheimer's dementia DNR CODE STATUS Continue IV vancomycin and Zosyn Proceed with G-tube placement once respiratory status improves ALEXANDRIA WAGNER MD May 06, 2019 09:35
[2019-05-06] MEDS: MULTIVITAMINS 30 ML CUP NGT SCH (11:18)
[2019-05-06] MEDS: ZINC SULFATE 220 MG CAP NGT SCH (11:19)
[2019-05-06] MEDS: ASCORBIC ACID 250 MG TAB NGT SCH (11:20)
[2019-05-06] MEDS: FAMOTIDINE 20 MG TAB NGT SCH (11:21)
[2019-05-06] MEDS: ASPIRIN 81 MG TAB NGT SCH (11:21)
[2019-05-06] MEDS: FOLIC ACID 1 MG TAB NGT SCH (11:21)
[2019-05-06] MEDS: COLLAGENASE 5 GM (UD JAR) TOP SCH ×2 (16:24→20:53)
[2019-05-06 19:49] VITALS: BP 132/65; PULSE 102; RESP 16
[2019-05-06 20:53] VITALS: RESP 17
[2019-05-06] MEDS ORDERED: VANCOMYCIN HCL 1.25 GM in SOD CHLORIDE 0.9% 250 ML IVPB SCH (23:00)
[2019-05-06] MEDS: morphine (DRIP) 100 MG/100 ML 100 ML IV SCH (23:01)
[2019-05-06] MEDS: VANCOMYCIN HCL 1.5 GM in SOD CHLORIDE 0.9% 250 ML IVPB SCH (23:12)
[2019-05-07] MEDS: ALBUTEROL/IPRATROPIUM (NEB) 3 ML AMP HHN SCH ×6 (00:18→20:16)
[2019-05-07 01:43] VITALS: BP 123/62; PULSE 113; RESP 18
[2019-05-07] MEDS: ACETAMINOPHEN 650MG/20.3ML CUP NGT PRN (02:32)
[2019-05-07] MEDS: PIPER-TAZO 3.375 GM IV (PMX) 100 ML IVPB SCH ×3 (05:40→21:14)
[2019-05-07 08:23] VITALS: BP 107/59; PULSE 79; RESP 18
[2019-05-07] MEDS: FAMOTIDINE 20 MG TAB NGT SCH (09:10)
[2019-05-07] MEDS: COLLAGENASE 5 GM (UD JAR) TOP SCH ×2 (09:10→20:50)
[2019-05-07] MEDS: ZINC SULFATE 220 MG CAP NGT SCH (09:10)
[2019-05-07] MEDS: ASPIRIN 81 MG TAB NGT SCH (09:10)
[2019-05-07] MEDS: FOLIC ACID 1 MG TAB NGT SCH (09:10)
[2019-05-07] MEDS: ASCORBIC ACID 250 MG TAB NGT SCH (09:10)
[2019-05-07] MEDS: MULTIVITAMINS 30 ML CUP NGT SCH (09:10)
--- NOTE | 2019-05-07 10:31 | PN ---
Date/Time of Note Date/Time of Note DATE: 05/07/19 TIME: 10:29 Subjective Patient remains obtunded. No respiratory distress. On 100% nonrebreather Objective Vitals Vital Signs Date Temp Pulse Resp B/P (MAP) Pulse Ox O2 O2 Flow FiO2 Time Delivery Rate 05/07/19 98.5 79 18 107/59 99 Non 08:23 (75) Rebreather 05/07/19 15.0 100 08:21 Intake and Output 05/06/19 05/06/19 05/07/19 1515:00 23:00 07:00 IntakeIntake Total 16 ml 895 ml 1062 ml OutputOutput Total 550 ml 700 ml BalanceBalance 16 ml 345 ml 362 ml Bilateral rhonchi Regular rate and rhythm Soft normoactive bowel sounds Mild edema Results Result Diagram: 05/04/19 0756 05/06/19 0435 Medications Medications Current Medications IV Flush (NS 3 ml) 3 ml PER PROTOCOL IV Last administered on 05/05/19at 02:30; Admin Dose 3 ML; Start 04/28/19 at 11:00 Ondansetron HCl (Zofran Inj) 4 mg Q6H PRN IV NAUSEA/VOMITING; Start 04/28/19 at 11:00 Aspirin (Aspirin) 81 mg DAILY NGT Last administered on 05/07/19 09:10; Admin Dose 81 MG; Start 04/28/19 at 11:00 Miscellaneous Information 1 ea NOTE XX ; Start 04/29/19 at 08:30 Multivitamins (Multivitamin) 30 ml DAILY NGT Last administered on 05/07/19 09:10; Admin Dose 30 ML; Start 05/02/19 at 09:00 Ascorbic Acid (Vitamin C) 250 mg DAILY NGT Last administered on 05/07/19 09:10; Admin Dose 250 MG; Start 05/02/19 at 09:00 Zinc Sulfate (Zinc Sulfate) 220 mg DAILY NGT Last administered on 05/07/19 09:10; Admin Dose 220 MG; Start 05/02/19 at 09:00 Folic Acid (Folic Acid) 1 mg DAILY NGT Last administered on 05/07/19 09:10; Admin Dose 1 MG; Start 05/02/19 at 09:00 Famotidine (Pepcid) 20 mg DAILY NGT Last administered on 05/07/19 09:10; Admin Dose 20 MG; Start 05/03/19 at 09:00 Acetaminophen (Tylenol Liquid) 650 mg Q6 PRN NGT MILD PAIN(1-3)OR ELEVATED TEMP Last administered on 05/07/19 02:32; Admin Dose 650 MG; Start 05/02/19 at 21:00 Vancomycin HCl (Vanco Iv Per Pharmacy) VANCOMYCIN PER PHARMACY PER PROTOCOL XX ; Start 05/03/19 at 11:30 Piperacillin Sod/ Tazobactam Sod 100 ml @ 200 mls/hr Q8 IVPB Last administered on 05/07/19 05:40; Admin Dose 200 MLS/HR; Start 05/03/19 at 13:00 Albuterol/ Ipratropium (Duoneb) 3 ml Q4H RESP THERAPY HHN Last administered on 05/07/19 08:21; Admin Dose 3 ML; Start 05/03/19 at 21:00 Collagenase (Santyl) 1 applic BID TOP Last administered on 05/07/19 09:10; Admin Dose 1 APPLIC; Start 05/04/19 at 12:00 Morphine Sulfate/ Sodium Chloride 100 ml @ 2 mls/hr IV IV Last administered on 05/06/19 23:01; Admin Dose 2 MLS/HR; Start 05/04/19 at 23:00 Dextrose 1,000 ml @ 75 mls/hr [id number] IV Last administered on 05/06/19 20:51; Admin Dose 75 MLS/HR; Start 05/05/19 at 09:30 Vancomycin HCl 1.5 gm/Sodium Chloride 250 ml @ 83.333 mls/ hr Q24H IVPB Last administered on 05/06/19 23:12; Admin Dose 83.333 MLS/HR; Start 05/06/19 at 23:00 VTE Prophylaxis Risk score (from Nsg)>0 risk: 5 SCD applied (from Nsg): Yes Lines/Catheters IV Catheter Type: Saline Lock [place] in Place: No Assessment/Plan Assessment/Plan 83-year-old male with recurrent aspiration pneumonia Acute respiratory distress Recent CVA with right hemiparesis Encephalopathy Dysphagia Advanced Alzheimer's dementia DNR CODE STATUS Continue IV vancomycin and Zosyn Proceed with G-tube placement Discharge planning to [facility] following G-tube placement Patient will be evaluated by hospice at the [facility] ALEXANDRIA WAGNER MD May 07, 2019 10:31
--- NOTE | 2019-05-07 14:20 | PN ---
Date/Time of Note Date/Time of Note DATE: 05/07/19 TIME: 14:14 Assessment/Plan VTE Prophylaxis Risk score (from Ns)>0 risk: 5 SCD applied (from Ns): Yes Pharmacological prophylaxis: other (scds) Lines/Catheters [facility] (from [facility] Saline Lock Urinary Cath still in place: No Assessment/Plan Hospital Course ssessment/Plan Assessment: Dysphagia Acute respiratory failure status post extubation Aspiration pneumonia Sepsis Recent CVA with right hemiparesis Obtunded state Advanced Alzheimer's dementia Hypertension DM Plan: [facility] agrees to PEG placement Currently patient does not appear he would be able to tolerate procedure- Venti- mask at 15 liters- sat 95%- with dyspnea noted Will reassess in am for possible to add him to schedule Patient seen in collaboration with Dr. Nuñez Subjective: Course reviewed with nursing staff Patient interviewed and examined All labs, imaging and other results reviewed The patient non-responsive- venti-mask at 15 liters Patient code status DNR.DNI- with dyspnea noted. Will continue to monitor Constitutional: non-verbal, other (obtunded- ) Head: normocephalic ENMT: nl external ears & nose, other (NGT in place) Neck: supple Respiratory: clear to auscultation Cardiovascular: regular rate and rhythm Gastrointestinal: soft, bowel sounds Result Diagram: 05/04/19 0756 05/06/19 0435 Exam/Review of Systems Exam Vitals Vital Signs Date Temp Pulse Resp B/P (MAP) Pulse Ox O2 O2 Flow FiO2 Time Delivery Rate 05/07/19 81 16 95 Non 15.0 100 12:49 Rebreather Mask 05/07/19 98.5 107/59 08:23 (75) Intake and Output 05/06/19 05/06/19 05/07/19 1515:00 23:00 07:00 IntakeIntake Total 16 ml 895 ml 1062 ml OutputOutput Total 550 ml 700 ml BalanceBalance 16 ml 345 ml 362 ml Medications Medication Current Medications IV Flush (NS 3 ml) 3 ml PER PROTOCOL IV Last administered on 05/05/19at 02:30; Admin Dose 3 ML; Start 04/28/19 at 11:00 Ondansetron HCl (Zofran Inj) 4 mg Q6H PRN IV NAUSEA/VOMITING; Start 04/28/19 at 11:00 Aspirin (Aspirin) 81 mg DAILY NGT Last administered on 05/07/19 09:10; Admin Dose 81 MG; Start 04/28/19 at 11:00 Miscellaneous Information 1 ea NOTE XX ; Start 04/29/19 at 08:30 Multivitamins (Multivitamin) 30 ml DAILY NGT Last administered on 05/07/19 09:10; Admin Dose 30 ML; Start 05/02/19 at 09:00 Ascorbic Acid (Vitamin C) 250 mg DAILY NGT Last administered on 05/07/19 09:10; Admin Dose 250 MG; Start 05/02/19 at 09:00 Zinc Sulfate (Zinc Sulfate) 220 mg DAILY NGT Last administered on 05/07/19 09:10; Admin Dose 220 MG; Start 05/02/19 at 09:00 Folic Acid (Folic Acid) 1 mg DAILY NGT Last administered on 05/07/19 09:10; Admin Dose 1 MG; Start 05/02/19 at 09:00 Famotidine (Pepcid) 20 mg DAILY NGT Last administered on 05/07/19 09:10; Admin Dose 20 MG; Start 05/03/19 at 09:00 Acetaminophen (Tylenol Liquid) 650 mg Q6 PRN NGT MILD PAIN(1-3)OR ELEVATED TEMP Last administered on 05/07/19 02:32; Admin Dose 650 MG; Start 05/02/19 at 21:00 Vancomycin HCl (Vanco Iv Per Pharmacy) VANCOMYCIN PER PHARMACY PER PROTOCOL XX ; Start 05/03/19 at 11:30 Piperacillin Sod/ Tazobactam Sod 100 ml @ 200 mls/hr Q8 IVPB Last administered on 05/07/19 05:40; Admin Dose 200 MLS/HR; Start 05/03/19 at 13:00 Albuterol/ Ipratropium (Duoneb) 3 ml Q4H RESP THERAPY HHN Last administered on 05/07/19 12:49; Admin Dose 3 ML; Start 05/03/19 at 21:00 Collagenase (Santyl) 1 applic BID TOP Last administered on 05/07/19 09:10; Admin Dose 1 APPLIC; Start 05/04/19 at 12:00 Morphine Sulfate/ Sodium Chloride 100 ml @ 2 mls/hr IV IV Last administered on 05/06/19 23:01; Admin Dose 2 MLS/HR; Start 05/04/19 at 23:00; Status Hold Dextrose 1,000 ml @ 75 mls/hr [id number] IV Last administered on 05/06/19at 20:51; Admin Dose 75 MLS/HR; Start 05/05/19 at 09:30 Vancomycin HCl 1.5 gm/Sodium Chloride 250 ml @ 83.333 mls/ hr Q24H IVPB Last administered on 05/06/19at 23:12; Admin Dose 83.333 MLS/HR; Start 05/06/19 at 23: 00 ELLEN ELIAS May 07, 2019 14:20
[2019-05-07 15:09] VITALS: BP 117/65; PULSE 91; RESP 18
[2019-05-07] MEDS: DEXTROSE 5% 1,000 ML IV SCH (15:43)
[2019-05-07] MEDS: VANCOMYCIN HCL 1.5 GM in SOD CHLORIDE 0.9% 250 ML IVPB SCH (22:45)
[2019-05-08] MEDS: ALBUTEROL/IPRATROPIUM (NEB) 3 ML AMP HHN SCH ×6 (00:36→20:00)
[2019-05-08] MEDS: ACETAMINOPHEN 650MG/20.3ML CUP NGT PRN ×2 (03:09→09:49)
[2019-05-08] MEDS: DEXTROSE 5% 1,000 ML IV SCH (04:10)
[2019-05-08] MEDS: PIPER-TAZO 3.375 GM IV (PMX) 100 ML IVPB SCH (05:15)
[2019-05-08 07:32] VITALS: BP 137/77; PULSE 91; RESP 18
[2019-05-08] MEDS: ASPIRIN 81 MG TAB NGT SCH (09:49)
[2019-05-08] MEDS: MULTIVITAMINS 30 ML CUP NGT SCH (09:49)
[2019-05-08] MEDS: ZINC SULFATE 220 MG CAP NGT SCH (09:49)
[2019-05-08] MEDS: COLLAGENASE 5 GM (UD JAR) TOP SCH (09:50)
[2019-05-08] MEDS: ASCORBIC ACID 250 MG TAB NGT SCH (09:50)
[2019-05-08] MEDS: FOLIC ACID 1 MG TAB NGT SCH (09:50)
[2019-05-08] MEDS: FAMOTIDINE 20 MG TAB NGT SCH (09:50)
--- NOTE | 2019-05-08 13:18 | PN ---
Date/Time of Note Date/Time of Note DATE: 05/08/19 TIME: 13:15 Assessment/Plan VTE Prophylaxis Risk score (from Ns)>0 risk: 5 [place] [facility] [place] SCD contraindicated: other (scds) Pharmacological prophylaxis: other (scds) Lines/Catheters IV Catheter Type (from [facility] Saline Lock Urinary Cath still in place: No Assessment/Plan Hospital Course ssessment/Plan Assessment: Dysphagia Acute respiratory failure status post extubation Aspiration pneumonia Sepsis Recent CVA with right hemiparesis Obtunded state Advanced Alzheimer's dementia Hypertension DM Plan: Pt still too unstable for PEG procedure Code status has been changed to comfort measures GI will sign off but will be available upon reconsult as needed Patient seen in collaboration with Dr. Nuñez Subjective: Course reviewed with nursing staff Patient interviewed and examined All labs, imaging and other results reviewed The patient non-responsive- venti-mask at 15 liters Does not appear to be in any pain Constitutional: non-verbal, other (obtunded- ) Head: normocephalic ENMT: nl external ears & nose, other (NGT in place) Neck: supple Respiratory: clear to auscultation Cardiovascular: regular rate and rhythm Gastrointestinal: soft, bowel sounds Result Diagram: 05/08/19 0419 05/08/19 0419 Results 24hrs Laboratory Tests Test 05/08/19 04:19 White Blood Count 12.6 #H Red Blood Count 3.78 L Hemoglobin 11.1 L Hematocrit 35.7 L Mean Corpuscular Volume 94.4 Mean Corpuscular Hemoglobin 29.4 Mean Corpuscular Hemoglobin Concent 31.1 L Red Cell Distribution Width 15.3 H Platelet Count 145 Mean Platelet Volume 14.2 H Immature Granulocytes % 0.600 H Neutrophils % Segmented Neutrophils % (Manual) 71 Band Neutrophils % (Manual) 18 H Lymphocytes % Lymphocytes % (Manual) 5 L Monocytes % Monocytes % (Manual) 2 Eosinophils % Eosinophils % (Manual) 3 Basophils % Promyelocytes % (Manual) 1 H Nucleated Red Blood Cells % 0.0 Immature Granulocytes # 0.070 H Neutrophils # Neutrophils # (Manual) 9.2 H Band Neutrophils # 2.2 H Lymphocytes (Manual) 0.6 L Lymphocytes # Monocytes # Monocytes # (Manual) 0.2 L Eosinophils # Basophils # Promyelocytes # 0.1 H Nucleated Red Blood Cells # Platelet Estimate NORMAL Giant Platelets 7 H Anisocytosis 1+ Macrocytosis 1+ Ovalocytes 1+ Sodium Level 165 *H Potassium Level 2.7 *L Chloride Level 130 H Carbon Dioxide Level 25 Anion Gap 10 Blood Urea Nitrogen 35 H Creatinine 1.66 H Est Glomerular Filtrat Rate mL/min Glucose Level 331 H Calcium Level 8.0 L Exam/Review of Systems Exam Vitals Vital Signs Date Temp Pulse Resp B/P (MAP) Pulse Ox O2 O2 Flow FiO2 Time Delivery Rate 05/08/19 98.6 10:34 05/08/19 15.0 100 10:05 05/08/19 97 22 97 Non 09:30 Rebreather Mask 05/08/19 137/77 07:32 (97) Intake and Output 05/07/19 05/07/19 05/08/19 1515:00 23:00 07:00 IntakeIntake Total 116 ml 500 ml 925 ml OutputOutput Total 1000 ml BalanceBalance 116 ml 500 ml -75 ml Results Results 24hrs Laboratory Tests Test 05/08/19 04:19 White Blood Count 12.6 #H Red Blood Count 3.78 L Hemoglobin 11.1 L Hematocrit 35.7 L Mean Corpuscular Volume 94.4 Mean Corpuscular Hemoglobin 29.4 Mean Corpuscular Hemoglobin Concent 31.1 L Red Cell Distribution Width 15.3 H Platelet Count 145 Mean Platelet Volume 14.2 H Immature Granulocytes % 0.600 H Neutrophils % Segmented Neutrophils % (Manual) 71 Band Neutrophils % (Manual) 18 H Lymphocytes % Lymphocytes % (Manual) 5 L Monocytes % Monocytes % (Manual) 2 Eosinophils % Eosinophils % (Manual) 3 Basophils % Promyelocytes % (Manual) 1 H Nucleated Red Blood Cells % 0.0 Immature Granulocytes # 0.070 H Neutrophils # Neutrophils # (Manual) 9.2 H Band Neutrophils # 2.2 H Lymphocytes (Manual) 0.6 L Lymphocytes # Monocytes # Monocytes # (Manual) 0.2 L Eosinophils # Basophils # Promyelocytes # 0.1 H Nucleated Red Blood Cells # Platelet Estimate NORMAL Giant Platelets 7 H Anisocytosis 1+ Macrocytosis 1+ Ovalocytes 1+ Sodium Level 165 *H Potassium Level 2.7 *L Chloride Level 130 H Carbon Dioxide Level 25 Anion Gap 10 Blood Urea Nitrogen 35 H Creatinine 1.66 H Est Glomerular Filtrat Rate mL/min Glucose Level 331 H Calcium Level 8.0 L Medications Medication Current Medications IV Flush (NS 3 ml) 3 ml PER PROTOCOL IV Last administered on 05/05/19 02:30; Admin Dose 3 ML; Start 04/28/19 at 11:00 Ondansetron HCl (Zofran Inj) 4 mg Q6H PRN IV NAUSEA/VOMITING; Start 04/28/19 at 11:00 Miscellaneous Information 1 ea NOTE XX ; Start 04/29/19 at 08:30 Acetaminophen (Tylenol Liquid) 650 mg Q6 PRN NGT MILD PAIN(1-3)OR ELEVATED TEMP Last administered on 05/08/19at 09:49; Admin Dose 650 MG; Start 05/02/19 at 21:00 Vancomycin HCl (Vanco Iv Per Pharmacy) VANCOMYCIN PER PHARMACY PER PROTOCOL XX ; Start 05/03/19 at 11:30 Albuterol/ Ipratropium (Duoneb) 3 ml Q4H RESP THERAPY HHN Last administered on 05/08/19at 09:30; Admin Dose 3 ML; Start 05/03/19 at 21:00 Morphine Sulfate/ Sodium Chloride 100 ml @ 2 mls/hr IV IV Last administered on 05/06/19at 23:01; Admin Dose 2 MLS/HR; Start 05/04/19 at 23:00; Status Hold Morphine Sulfate (morphine) 4 mg Q1H PRN IV SHORTNESS OF BREATH; Start 05/08/19 at 07:00 ELLEN ELIAS May 08, 2019 13:18
[2019-05-08 14:05] VITALS: BP 140/79; PULSE 94; RESP 18
[2019-05-08] MEDS: morphine 4 MG/ML VIAL IV PRN ×2 (17:52→23:58)
--- NOTE | 2019-05-08 21:22 | PN ---
Date/Time of Note Date/Time of Note DATE: 05/08/19 TIME: 21:11 Assessment/Plan VTE Prophylaxis Risk score (from [facility] [place])>0 risk: 5 SCD applied (from [facility] [place]): No SCD contraindicated: other Pharmacological prophylaxis: other Lines/Catheters IV Catheter Type ([facility] Saline Lock Urinary Cath still in place: No Assessment/Plan Hospital Course 83 m with advance dementia PW respiratory failure requiring intubation in the setting of aspiration pneumonia . He was extubated and transferred to the floor . He required 100 % O2 via NRB mask. Via discussion of attending Dr Whitehead with ethics committee CODE status was change to DNR DNI with focus on comfort measures . - PRN IV Morphine for dyspnea - supplemental O2 Problems: (1) Comfort measures only status (2) Advanced dementia (3) Respiratory failure with hypoxia (4) Dysphagia (5) Poor prognosis (6) Aspiration into lower respiratory tract Status: Acute Qualifiers: Encounter type: initial encounter Qualified Codes: T17.800A - Unspecified foreign body in other parts of respiratory tract causing asphyxiation, initial encounter (7) KYAW (acute kidney injury) (8) Hypokalemia (9) PEG (percutaneous endoscopic gastrostomy) status Result Diagram: 05/08/19 0419 05/08/19 0419 Results 24hrs Laboratory Tests Test 05/08/19 04:19 White Blood Count 12.6 #H Red Blood Count 3.78 L Hemoglobin 11.1 L Hematocrit 35.7 L Mean Corpuscular Volume 94.4 Mean Corpuscular Hemoglobin 29.4 Mean Corpuscular Hemoglobin Concent 31.1 L Red Cell Distribution Width 15.3 H Platelet Count 145 Mean Platelet Volume 14.2 H Immature Granulocytes % 0.600 H Neutrophils % Segmented Neutrophils % (Manual) 71 Band Neutrophils % (Manual) 18 H Lymphocytes % Lymphocytes % (Manual) 5 L Monocytes % Monocytes % (Manual) 2 Eosinophils % Eosinophils % (Manual) 3 Basophils % Promyelocytes % (Manual) 1 H Nucleated Red Blood Cells % 0.0 Immature Granulocytes # 0.070 H Neutrophils # Neutrophils # (Manual) 9.2 H Band Neutrophils # 2.2 H Lymphocytes (Manual) 0.6 L Lymphocytes # Monocytes # Monocytes # (Manual) 0.2 L Eosinophils # Basophils # Promyelocytes # 0.1 H Nucleated Red Blood Cells # Platelet Estimate NORMAL Giant Platelets 7 H Anisocytosis 1+ Macrocytosis 1+ Ovalocytes 1+ Sodium Level 165 *H Potassium Level 2.7 *L Chloride Level 130 H Carbon Dioxide Level 25 Anion Gap 10 Blood Urea Nitrogen 35 H Creatinine 1.66 H Est Glomerular Filtrat Rate mL/min Glucose Level 331 H Calcium Level 8.0 L Subjective 24 Hr Interval Summary Free Text/Dictation Not interactive , Exam/Review of Systems Exam Vitals Vital Signs Date Temp Pulse Resp B/P (MAP) Pulse Ox O2 O2 Flow FiO2 Time Delivery Rate 05/08/19 15.0 50 20:01 05/08/19 101 18 92 Venti Mask 20:01 05/08/19 99.4 140/79 14:05 (99) Intake and Output 05/07/19 05/07/19 05/08/19 1515:00 23:00 07:00 IntakeIntake Total 116 ml 500 ml 925 ml OutputOutput Total 1000 ml BalanceBalance 116 ml 500 ml -75 ml Constitutional: non-verbal, frail Results Results 24hrs Laboratory Tests Test 05/08/19 04:19 White Blood Count 12.6 #H Red Blood Count 3.78 L Hemoglobin 11.1 L Hematocrit 35.7 L Mean Corpuscular Volume 94.4 Mean Corpuscular Hemoglobin 29.4 Mean Corpuscular Hemoglobin Concent 31.1 L Red Cell Distribution Width 15.3 H Platelet Count 145 Mean Platelet Volume 14.2 H Immature Granulocytes % 0.600 H Neutrophils % Segmented Neutrophils % (Manual) 71 Band Neutrophils % (Manual) 18 H Lymphocytes % Lymphocytes % (Manual) 5 L Monocytes % Monocytes % (Manual) 2 Eosinophils % Eosinophils % (Manual) 3 Basophils % Promyelocytes % (Manual) 1 H Nucleated Red Blood Cells % 0.0 Immature Granulocytes # 0.070 H Neutrophils # Neutrophils # (Manual) 9.2 H Band Neutrophils # 2.2 H Lymphocytes (Manual) 0.6 L Lymphocytes # Monocytes # Monocytes # (Manual) 0.2 L Eosinophils # Basophils # Promyelocytes # 0.1 H Nucleated Red Blood Cells # Platelet Estimate NORMAL Giant Platelets 7 H Anisocytosis 1+ Macrocytosis 1+ Ovalocytes 1+ Sodium Level 165 *H Potassium Level 2.7 *L Chloride Level 130 H Carbon Dioxide Level 25 Anion Gap 10 Blood Urea Nitrogen 35 H Creatinine 1.66 H Est Glomerular Filtrat Rate mL/min Glucose Level 331 H Calcium Level 8.0 L Medications Medication Current Medications IV Flush (NS 3 ml) 3 ml PER PROTOCOL IV Last administered on 05/05/19 02:30; Admin Dose 3 ML; Start 04/28/19 at 11:00 Ondansetron HCl (Zofran Inj) 4 mg Q6H PRN IV NAUSEA/VOMITING; Start 04/28/19 at 11:00 Miscellaneous Information 1 ea NOTE XX ; Start 04/29/19 at 08:30 Acetaminophen (Tylenol Liquid) 650 mg Q6 PRN NGT MILD PAIN(1-3)OR ELEVATED TEMP Last administered on 05/08/19 09:49; Admin Dose 650 MG; Start 05/02/19 at 21:00 Albuterol/ Ipratropium (Duoneb) 3 ml Q4H RESP THERAPY HHN Last administered on 05/08/19 20:00; Admin Dose 3 ML; Start 05/03/19 at 21:00 Morphine Sulfate/ Sodium Chloride 100 ml @ 2 mls/hr IV IV Last administered on 05/06/19 23:01; Admin Dose 2 MLS/HR; Start 05/04/19 at 23:00; Status Hold Morphine Sulfate (morphine) 4 mg Q1H PRN IV SHORTNESS OF BREATH Last administered on 05/08/19 17:52; Admin Dose 4 MG; Start 05/08/19 at 07:00 NGUYỄN FOSTER MD May 08, 2019 21:22
[2019-05-09] MEDS: ALBUTEROL/IPRATROPIUM (NEB) 3 ML AMP HHN SCH ×6 (01:42→21:52)
[2019-05-09 02:23] VITALS: BP 120/71; PULSE 104; RESP 22
[2019-05-09] MEDS: morphine 4 MG/ML VIAL IV PRN (05:37)
[2019-05-09 07:26] VITALS: BP 140/94; PULSE 98; RESP 18
[2019-05-09] MEDS: morphine (DRIP) 100 MG/100 ML 100 ML IV SCH (13:08)
[2019-05-09 14:22] VITALS: BP 120/78; PULSE 91; RESP 18
--- NOTE | 2019-05-09 19:13 | PN ---
Date/Time of Note Date/Time of Note DATE: 05/09/19 TIME: 19:12 Assessment/Plan VTE Prophylaxis Risk score (from Ns)>0 risk: 7 SCD applied (from Ns): No SCD contraindicated: other Pharmacological prophylaxis: other Lines/Catheters IV Catheter Type (from Nrsg): Saline Lock Urinary Cath still in place: Yes Reason Cath still needed: terminal illness/intractable pain Assessment/Plan Hospital Course 83 m with advance dementia PW respiratory failure requiring intubation in the setting of aspiration pneumonia . He was extubated and transferred to the floor . He required 100 % O2 via NRB mask. Via discussion of attending Dr Whitehead with ethics committee CODE status was change to DNR DNI with focus on comfort measures . - IV Morphine drip - supplemental O2 Problems: (1) Comfort measures only status (2) Advanced dementia (3) Respiratory failure with hypoxia (4) Dysphagia (5) Poor prognosis (6) Aspiration into lower respiratory tract (7) KYAW (acute kidney injury) (8) Hypokalemia (9) PEG (percutaneous endoscopic gastrostomy) status Result Diagram: 05/08/19 0419 05/08/19 0419 Exam/Review of Systems Exam Vitals Vital Signs Date Temp Pulse Resp B/P (MAP) Pulse Ox O2 O2 Flow FiO2 Time Delivery Rate 05/09/19 102 20 90 Venti Mask 15.0 50 16:49 05/09/19 98.7 120/78 14:22 (92) Intake and Output 05/08/19 05/08/19 05/09/19 1515:00 23:00 07:00 IntakeIntake Total 425 ml OutputOutput Total 600 ml 650 ml 750 ml BalanceBalance -175 ml -650 ml -750 ml Exam General: In no acute distress , laying in bed gasping for air , not interactive , debilitated and cachectic HEENT pupils pinpoint NECK : trachea midline Core: S1, S2, NL rate and rhythm, no murmur, Lungs: shallow respiratory efforts , intermittent gasping for air Abdomen, soft, not distended, normal bowel sounds, Extremities without : edema , cold Neurological , obtunded , not interactive does not respond to verbal or tactile stimuli Medications Medication Current Medications IV Flush (NS 3 ml) 3 ml PER PROTOCOL IV Last administered on 05/05/19at 02:30; A dmin Dose 3 ML; Start 04/28/19 at 11:00 Ondansetron HCl (Zofran Inj) 4 mg Q6H PRN IV NAUSEA/VOMITING; Start 04/28/19 at 11:00 Miscellaneous Information 1 ea NOTE XX ; Start 04/29/19 at 08:30 Acetaminophen (Tylenol Liquid) 650 mg Q6 PRN NGT MILD PAIN(1-3)OR ELEVATED TEMP Last administered on 05/08/19at 09:49; Admin Dose 650 MG; Start 05/02/19 at 21:00 Albuterol/ Ipratropium (Duoneb) 3 ml Q4H RESP THERAPY HHN Last administered on 05/09/19at 16:46; Admin Dose 3 ML; Start 05/03/19 at 21:00 Morphine Sulfate (morphine) 4 mg Q1H PRN IV SHORTNESS OF BREATH Last administered on 05/09/19at 05:37; Admin Dose 4 MG; Start 05/08/19 at 07:00 Morphine Sulfate/ Sodium Chloride 100 ml @ 1 mls/hr TITRATE IV Last administered on 05/09/19at 13:08; Admin Dose 1 MLS/HR; Start 05/09/19 at 11:00 Eye Lubricant (Artificial Tears Oph) 2 drop EACH SHIFT PRN BOTH EYES DRY EYES; Start 05/09/19 at 11:00 Dimethicone (Blistex Lip [place]) 1 applic EACH SHIFT PRN TOP DRY LIP(S); Start 05/09/19 at 11:00 NGUYỄN FOSTER MD May 09, 2019 19:13
[2019-05-10] MEDS: ALBUTEROL/IPRATROPIUM (NEB) 3 ML AMP HHN SCH ×6 (00:33→20:24)
[2019-05-10] MEDS: DIMETHICONE STICK TOP PRN (14:34)
[2019-05-10] MEDS: ARTIFICIAL TEARS 15 ML OPH BOTH EYES PRN (14:34)
--- NOTE | 2019-05-10 20:07 | PN ---
Date/Time of Note Date/Time of Note DATE: 05/10/19 TIME: 20:05 Assessment/Plan VTE Prophylaxis Risk score (from Ns)>0 risk: 7 SCD applied (from Ns): No SCD contraindicated: other Pharmacological prophylaxis: other Lines/Catheters IV Catheter Type (from Nrsg): Saline Lock Urinary Cath still in place: Yes Reason Cath still needed: terminal illness/intractable pain Assessment/Plan Hospital Course 83 m with advance dementia PW respiratory failure requiring intubation in the setting of aspiration pneumonia . He was extubated and transferred to the floor . He required 100 % O2 via NRB mask. Via discussion of attending Dr Whitehead with ethics committee CODE status was change to DNR DNI with focus on comfort measures . - IV Morphine drip to be titrated for agonal breathing - supplemental O2 Problems: (1) Comfort measures only status (2) Advanced dementia (3) Respiratory failure with hypoxia (4) Dysphagia (5) Poor prognosis (6) Aspiration into lower respiratory tract (7) KYAW (acute kidney injury) (8) Hypokalemia (9) PEG (percutaneous endoscopic gastrostomy) status Result Diagram: 05/08/19 0419 05/08/19 0419 Exam/Review of Systems Exam Vitals Vital Signs Date Temp Pulse Resp B/P (MAP) Pulse Ox O2 O2 Flow FiO2 Time Delivery Rate 05/10/19 93 24 92 Nasal 4.0 16:04 Cannula 05/10/19 50 09:17 05/09/19 98.7 120/78 14:22 (92) Intake and Output 05/09/19 05/09/19 05/10/19 1515:00 23:00 07:00 IntakeIntake Total 10 ml 6 ml OutputOutput Total 550 ml 400 ml 550 ml BalanceBalance -550 ml -390 ml -544 ml Exam General: In no acute distress , laying in bed gasping for air , not interactive , debilitated and cachectic HEENT pupils pinpoint NECK : trachea midline Core: S1, S2, NL rate and rhythm, no murmur, Lungs: shallow respiratory efforts , agonal breathing Abdomen, soft, not distended, normal bowel sounds, Extremities without : edema , cold Neurological , obtunded , not interactive does not respond to verbal or tactile stimuli Medications Medication Current Medications IV Flush (NS 3 ml) 3 ml PER PROTOCOL IV Last administered on 05/05/19at 02:30; Admin Dose 3 ML; Start 04/28/19 at 11:00 Ondansetron HCl (Zofran Inj) 4 mg Q6H PRN IV NAUSEA/VOMITING; Start 04/28/19 at 11:00 Miscellaneous Information 1 ea NOTE XX ; Start 04/29/19 at 08:30 Acetaminophen (Tylenol Liquid) 650 mg Q6 PRN NGT MILD PAIN(1-3)OR ELEVATED TEMP Last administered on 05/08/19 09:49; Admin Dose 650 MG; Start 05/02/19 at 21:00 Albuterol/ Ipratropium (Duoneb) 3 ml Q4H RESP THERAPY HHN Last administered on 05/10/19 16:03; Admin Dose 3 ML; Start 05/03/19 at 21:00 Morphine Sulfate (morphine) 4 mg Q1H PRN IV SHORTNESS OF BREATH Last administered on 05/09/19 05:37; Admin Dose 4 MG; Start 05/08/19 at 07:00 Morphine Sulfate/ Sodium Chloride 100 ml @ 1 mls/hr TITRATE IV Last administered on 05/09/19 13:08; Admin Dose 1 MLS/HR; Start 05/09/19 at 11:00 Eye Lubricant (Artificial Tears Oph) 2 drop EACH SHIFT PRN BOTH EYES DRY EYES Last administered on 05/10/19 14:34; Admin Dose 2 DROP; Start 05/09/19 at 11:00 Dimethicone (Blistex Lip [place]) 1 applic EACH SHIFT PRN TOP DRY LIP(S) Last administered on 05/10/19 14:34; Admin Dose 1 APPLIC; Start 05/09/19 at 11:00 NGUYỄN FOSTER MD May 10, 2019 20:07
[2019-05-11] MEDS: ALBUTEROL/IPRATROPIUM (NEB) 3 ML AMP HHN SCH ×6 (01:22→20:00)
[2019-05-11] MEDS: ARTIFICIAL TEARS 15 ML OPH BOTH EYES PRN (05:30)
[2019-05-11] MEDS: DIMETHICONE STICK TOP PRN (05:31)
[2019-05-11 07:37] VITALS: BP 108/59; PULSE 91; RESP 20
[2019-05-11] MEDS: morphine (DRIP) 100 MG/100 ML 100 ML IV SCH (11:44)
--- NOTE | 2019-05-11 13:36 | QN ---
Documentation Comment S: no response voice or exam O: vitals reviewed cachetic, dehydrated, ctab ant rrr, soft tn a/p 1. cont comfort care, morphine uptitrated today TAVARES FELIPE MD May 11, 2019 13:36
[2019-05-11 15:40] VITALS: BP 98/54; PULSE 66; RESP 15
--- NOTE | 2019-05-12 11:30 | DS ---
Date/Time of Note Date/Time of Note DATE: 05/12/19 TIME: 11:29 Discharge Summary Admission/Discharge Info Admit Date/Time Apr 28, 2019 at 05:40 Discharge Date/Time May 11, 2019 at 23:10 Discharge Diagnosis 1. sepsis '2. severe dementia 3. cachexia Patient Condition: Stable Hospital Course patient admitted with esepssi, had poor improvement, was eventually converted to comfort care and peacefully on may 11 Primary Care Provider MD DESTINEE Martinez ROBERT E. MD May 12, 2019 11:30
== END 2019-05-11 23:10 | disposition expired | DRG 208 ==
LOC: E/R 05:24 → ICU 05:40 → EDBEDREQSVC 06:10 → EDBEDREQ 06:10 → ICU 09:14 → PP2 05-01 15:11 → TEL 05-03 08:38 → MS1 05-04 23:36
PROVIDERS: ADMIT Internal Medicine; ATTEND Internal Medicine
PROC: 0BH17EZ Insertion of Endotracheal Airway into Trachea, Via Natural or Artificial Opening (ICD-10-PCS; principal; 2019-04-28)
PROC: 5A1945Z Respiratory Ventilation, 24-96 Consecutive Hours (ICD-10-PCS; 2019-04-28)
PROC: 02HV33Z Insertion of Infusion Device into Superior Vena Cava, Percutaneous Approach (ICD-10-PCS; 2019-04-28)
DX: T17.820A Food in other parts of respiratory tract causing asphyxiation, initial encounter (principal); J96.01 Acute respiratory failure with hypoxia; J69.0 Pneumonitis due to inhalation of food and vomit; G92 Toxic encephalopathy; A41.9 Sepsis, unspecified organism; E87.0 Hyperosmolality and hypernatremia; N17.9 Acute kidney failure, unspecified; E87.2 Acidosis; F02.81 Dementia in other diseases classified elsewhere, unspecified severity, with behavioral disturbance; R64 Cachexia; I69.951 Hemiplegia and hemiparesis following unspecified cerebrovascular disease affecting right dominant side; I13.0 Hypertensive heart and chronic kidney disease with heart failure and stage 1 through stage 4 chronic kidney disease, or unspecified chronic kidney disease; D69.6 Thrombocytopenia, unspecified; E11.65 Type 2 diabetes mellitus with hyperglycemia; E11.22 Type 2 diabetes mellitus with diabetic chronic kidney disease; E87.6 Hypokalemia; E86.0 Dehydration; G30.9 Alzheimer's disease, unspecified; I50.9 Heart failure, unspecified; I48.91 Unspecified atrial fibrillation; K76.9 Liver disease, unspecified; N18.3 Chronic kidney disease, stage 3 (moderate); R00.0 Tachycardia, unspecified; R13.10 Dysphagia, unspecified; Z66 Do not resuscitate; Z95.1 Presence of aortocoronary bypass graft; Z68.23 Body mass index [BMI] 23.0-23.9, adult; Z79.4 Long term (current) use of insulin; Z79.82 Long term (current) use of aspirin
CPT/HCPCS: 31500; 36415; 36600; 71045; 80048; 80053; 80202; 81001; 82140; 82565; 82803; 82962; 83036; 83605; 83735; 83880; 84100; 84145; 84484; 84520; 85025; 85610; 85730; 87081; 93005; 94002; 94003; 94640; 94664; 94770; 96374; 96375; C1751; J0692; J1644; J1815; J2270; J2310; J2543; J3010; J3370; J3480; J7030; J7050; J7070; J7120